=== PATIENT | female | born 1950 | race Caucasian/White ===

== ENCOUNTER → 2021-01-28 | Outpatient (REF) | payer MEDICARE, MEDICAID ==
[~2021-01-28] MED LIST: ALB2.5NEB INH; ALBU17IN INH; ASPI81CH32 PO; AVEL1TAB2 PO; BUPR150T12 PO; CLOP75TA2 PO; COZA100T2 PO; HYDR-3644 PO; LEVA0.3131 INH; LORA0.5T PO; LOSA100T PO; LOSA100T8 PO; LOSA50TA88 PO; OMEP1CAP73 PO; OMEPPOW18 PO; PRED20TA AD; PRED20TAB PO; SIMV20TA2 PO; SIMV20TA22 PO; SPIR1CAP INH; SPIRIVA INH; SYMB16INH INH; SYMB80AE INH; SYMB80INH INH; TESS100C PO; TYLE325T5 PO
[2021-01-29 09:50] LABS: PERCENT SATURATION 17.8 % (13.2-45.0)
== END ==
LOC: M LAB REF 12:08
PROVIDERS: ATTEND Internal Medicine
DX: G25.81 Restless legs syndrome (principal); D50.9 Iron deficiency anemia, unspecified

== ENCOUNTER → 2021-01-31 | Outpatient (CLI) | payer MEDICARE, MEDICAID ==
--- NOTE | 2021-01-31 11:17 | REP ---
INDICATION: COUGH. COMPARISON: PA and lateral chest dated 04/07/2014. TECHNIQUE: Upright PA and lateral chest. FINDINGS: The lung maldonado appear hyperinflated but are clear and are unchanged. Cardiac size is upper normal, unchanged. The jason, mediastinum, and skeletal structures are unchanged. There is mild thoracic scoliosis convex right, unchanged. IMPRESSION: Probable chronic hyperinflation. No acute infiltrates or effusions. No change from the prior study. <Electronically signed by Dom Landis > 01/31/21 [id number]
== END ==
LOC: M WUC 10:08
PROVIDERS: ATTEND Internal Medicine
DX: R05 Cough (principal)

== ENCOUNTER → 2021-02-21 | Outpatient (CLI) | payer MEDICARE, MEDICAID ==
[~2021-02-21] MED LIST changes: +ADV500INH; +ALBU8.5H; +FLUTISP; +INCR1INH; +ONDA-83; +ROPI1TAB3; +sertraline
== END ==
LOC: M LABSMTC 11:45
PROVIDERS: ATTEND Anesthesiology
DX: Z01.818 Encounter for other preprocedural examination (principal); Z20.822 Contact with and (suspected) exposure to COVID-19

== ENCOUNTER 2021-04-17 12:07 | Observation (INO) | payer MEDICARE ==
[~2021-04-17] VITALS: Ht 154.9 cm; Wt 63.0 kg
[~2021-04-17 12:07] MED LIST changes: -ADV500INH; +ADV500INH INH; -ALBU8.5H; +ALBU8.5H INH; -FLUTISP; +FLUTISP NARES; -INCR1INH; +INCR1INH INH; -ONDA-83; +ONDA-83 PO; -ROPI1TAB3; +ROPI1TAB3 PO
[2021-04-17] MEDS ORDERED: COMBIVENT RESPIMAT 100-20MCG INHALER 4GM INH STA (12:42)
[2021-04-17] MEDS ORDERED: methylPREDNISolone 125MG 2ML VIAL IV ONE (12:45)
[2021-04-17 13:00] LABS: BASO % 0.1 % (0.0-1.0); EOS # 0.1 10^3/uL (0.0-0.5); EOS % 0.7 % (0.0-3.0); HEMATOCRIT 32.4 % (36.0-47.0); HEMOGLOBIN 10.6 g/dl (12.0-15.5); LYMPH # 1.4 10^3/uL (1.5-5.0); LYMPH % 10.5 % (24.0-44.0); MEAN CORPUSCULAR HEMOGLOBIN 29.6 pg (27.0-33.0); MEAN CORPUSCULAR HGB CONC 32.7 g/dl (32.0-36.5); MEAN CORPUSCULAR VOLUME 90.5 fl (80.0-96.0); MONO # 0.9 10^3/uL (0.0-0.8); MONO % 6.5 % (2.0-8.0); NEUTROPHILS # 10.9 10^3/uL (1.5-8.5); NEUTROPHILS % 81.7 % (36.0-66.0); PLATELET COUNT, AUTOMATED 298 10^3/uL (150-450); RED BLOOD COUNT 3.58 10^6/uL (4.00-5.40); WHITE BLOOD COUNT 13.4 10^3/uL (4.0-10.0)
[2021-04-17] MEDS ORDERED: BUSP5TA PO (13:18)
--- NOTE | 2021-04-17 13:42 | REP ---
INDICATION: DYSPNEA/COUGH. COMPARISON: 01/31/2021. TECHNIQUE: Single portable AP view of the chest was performed. FINDINGS: The heart is at the upper limits of normal to slightly enlarged, unchanged. There is some calcification of the thoracic aorta. The mediastinal silhouette is unchanged. There are chronic bibasilar fibrotic changes. Radiographically there is no definite superimposed acute infiltrate. IMPRESSION: Stable exam. <Electronically signed by Dom Byrd > 04/17/21 [id number]
[2021-04-17 13:44] LABS: ALBUMIN 2.9 GM/DL (3.2-5.2); ALT/SGPT 22 U/L (12-78); BILIRUBIN,DIRECT 0.3 MG/DL (0.0-0.2); BILIRUBIN,TOTAL 1.1 MG/DL (0.2-1.0); BLOOD UREA NITROGEN 10 MG/DL (7-18); CALCIUM LEVEL 8.7 MG/DL (8.8-10.2); CARBON DIOXIDE LEVEL 36 MEQ/L (21-32); CHLORIDE LEVEL 95 MEQ/L (98-107); CK-MB VALUE MASS < 1.0 NG/ML (<3.6); CPK CREATINE PHOSPHOKINASE 21 U/L (26-192); CREATININE FOR GFR 0.38 MG/DL (0.55-1.30); GLOMERULAR FILTRATION RATE > 60.0 (>45); GLUCOSE, FASTING 165 MG/DL (70-100); MB/CK RELATIVE INDEX 4.76 (< OR =4); POTASSIUM SERUM 2.8 MEQ/L (3.5-5.1); SODIUM LEVEL 136 MEQ/L (136-145); TOTAL PROTEIN 7.2 GM/DL (6.4-8.2); TROPONIN I < 0.02 NG/ML (< 0.10)
[2021-04-17] MEDS ORDERED: KCL 10MEQ/100ML SWI (KRUN) 10 MEQ in IV 1 EA IV ONE (13:45)
[2021-04-17] MEDS ORDERED: POTASSIUM CHLORIDE 10 MEQ SR TABLET PO ONE (14:00)
[2021-04-17] MEDS ORDERED: MAALOX 30 ML SUSP *UDC PO PRN (14:50)
[2021-04-17] MEDS ORDERED: MOM 30ML SUSPENSION UDC PO PRN (14:50)
[2021-04-17] MEDS ORDERED: ALBUTEROL SULFATE 2.5 MG/0.5 ML INH NEB SOLN NEB PRN (14:50)
--- NOTE | 2021-04-17 15:48 | HPEPDOC ---
[facility] Medical History & Physical Date of Admission Apr 17, 2021 Date of Service: Apr 17, 2021 History and Physical CHIEF COMPLAINT: Shortness of breath HISTORY OF PRESENT ILLNESS: 70-year-old female history of COPD dependent on oxygen, hypertension, anxiety, GERD, hyperlipidemia presents with increasing shortness of breath over the past 2 days. She tells me that she's been cleaning the house overexerting herself with a lot of dust in the air which she believes is likely a trigger of her COPD and becoming short of breath. She tells me she doesn't often get exacerbations of her COPD. Her last hospitalization was in 2016. She tells me she feels better since coming to the hospital and receiving nebulizer treatment. She is using 2.5 L currently which is the same as her home requirement. She denies a fever or chills. She does endorse slightly increased sputum production. Patient was found to have hypokalemia 2.8 in the ED in conjunction with her COPD exacerbation she will be admitted for observation for management of both. PAST MEDICAL/SURGICAL HISTORY: COPD dependent on 2.5 L of oxygen at home Hyperlipidemia, hypertension and anxiety GERD History of duodenal ulcer History of pulmonary nodule follows with pulmonary Hysterectomy SOCIAL HISTORY: Denies alcohol use Denies tobacco use currently tells me she quit in 2016 Denies illicit drug use FAMILY HISTORY: Reviewed and none contributory to this admission ALLERGIES: Please see below. REVIEW OF SYSTEMS: 10 point review of systems complete all negative otherwise stated in HPI HOME MEDICATIONS: Please see below. PHYSICAL EXAMINATION: Constitutional: Awake and alert, in no apparent distress ENT: Sclera are clear. Mucosa is moist. Respiratory: diminished with poor air entry bilaterally with some mild end expiratory wheezing. No use of accessory muscles. Saturating at 93% on 2.5L o2 by NC. Cardiovascular: RRR S1 and S2 are normal, no murmur Gastrointestinal: Abdomen is soft, non distended, non tender Musculoskeletal: No lower extremity edema. Neurologic: No focal neurological deficit. Mental Status: A&O x3, normal affect Skin: No visible rashes LABORATORY DATA: See below. IMAGING: See chart MICROBIOLOGY: Please see below. ASSESSMENT 70-year-old female history of COPD dependent on oxygen, hypertension, anxiety, GERD, hyperlipidemia presents with increasing shortness of breath found to have acute on chronic COPD exacerbation and admitted for observation for medical management. Patient believes she overexerted herself over the past few days working at home cleaning the house lots of dust in the air. # Acute on chronic COPD exacerbation # Hypokalemia # Hypertension # Hyperlipidemia # Anxiety # GERD PLAN - On exam his breath sounds are diminished with poor air entry bilaterally with some mild end expiratory wheezing. - Continue supplemental oxygen by nasal cannula. Currently requiring 2.5 L by nasal cannula which is the same amount she's dependant on at home. - Duonebs scheduled and PRN - Azithromycin for 3 days - Symbicort scheduled - Prednisone 40mg for 4 more days. - Incentive spirometry. - Replace potassium repeat BMP in the morning - Continue home medications for chronic medical problems - DVT prophylaxis: Berhanex [facility] Vital Signs Vital Signs Date Time Temp Pulse Resp B/P (MAP) Pulse Ox O2 Delivery O2 Flow Rate FiO2 04/17/21 13:18 04/17/21 12:07 97.5 102 28 83 Nasal Cannula 2.0 Laboratory Data Labs 24H Laboratory Tests 2 04/17/21 12:37: Immature Granulocyte % (Auto) 0.5, Neutrophils (%) (Auto) 81.7H, Lymphocytes (%) (Auto) 10.5L, Monocytes (%) (Auto) 6.5, Eosinophils (%) (Auto) 0.7, Basophils (%) (Auto) 0.1, Neutrophils # (Auto) 10.9H, Lymphocytes # (Auto) 1.4L, Monocytes # (Auto) 0.9H, Eosinophils # (Auto) 0.1, Basophils # (Auto) 0.0, Nucleated Red Blood Cells % (auto) 0.0, Anion Gap 5L, Glomerular Filtration Rate > 60.0, Calcium Level 8.7L, Total Bilirubin 1.1H, Direct Bilirubin 0.3H, Aspartate Amino Transf (AST/SGOT) 25, Alanine Aminotransferase (ALT/SGPT) 22, Alkaline Phosphatase 147H, Total Creatine Kinase 21L, Creatine Kinase MB < 1.0, Creatine Kinase MB Relative Index 4.76H, Troponin I < 0.02, Total Protein 7.2, Albumin 2.9L, Albumin/Globulin Ratio 0.7L CBC/BMP Laboratory Tests 04/17/21 12:37 Home Medications Scheduled Buspirone HCl (Buspirone HCl) 5 Mg Tablet, 1 TAB PO BID Losartan Potassium (Losartan Potassium) 50 Mg Tab, 100 MG PO DAILY Omeprazole (Omeprazole) 20 Mg Cap, 40 MG PO DAILY Simvastatin (Simvastatin) 20 Mg Tab, 20 MG PO QPM [sertraline] 100 , BID Scheduled PRN Albuterol Sulfate (Albuterol Sulfate) 2.5 Mg/0.5 Ml Neb, 2.5 MG INH PRN PRN for SHORTNESS OF BREATH Albuterol Sulfate (Albuterol Sulfate Hfa) 8.5 Gm Hfa.aer.ad, for SHORTNESS OF BREATH Ondansetron HCl (Ondansetron HCl) 4 Mg Tablet, for NAUSEA Miscellaneous Medications Fluticasone Propionate (Fluticasone Propionate) 16 Gm [place].susp Ropinirole HCl (Ropinirole HCl) 1 Mg Tablet Salmeterol/Fluticasone (Advair 500-50 Diskus) 1 Each Blst.w.dev Umeclidinium [place] (Incruse Ellipta) 62.5 Mcg Blst.w.dev Allergies Coded Allergies: No Known Allergies (Unverified , 02/20/21) A-FIB/CHADSVASC A-FIB History Current/History of A-Fib/PAF?: No ZULEMA PERSAUD MD Apr 17, 2021 15:48
[2021-04-17] MEDS ORDERED: ZOLO100T PO (16:05)
[2021-04-17] MEDS ORDERED: LOSA100T8 PO (16:05)
[2021-04-17] MEDS ORDERED: OMEP-221 PO (16:05)
[2021-04-17] MEDS ORDERED: ROPI1TAB3 PO (16:05)
[2021-04-17] MEDS: KCL 10MEQ/100ML SWI (KRUN) 10 MEQ in IV 1 EA IV SCH ×3 (16:12→21:12)
[2021-04-17 16:28] LABS: RSV AMPLIFICATION NEGATIVE (NEGATIVE)
[2021-04-17] MEDS ORDERED: ONDANSETRON 4 MG TAB PO PRN (17:20)
[2021-04-17 17:40] VITALS: BP 123/58
[2021-04-17] MEDS ORDERED: AZITHROMYCIN INJ 500 MG, VIAL MATE ADAPTER 1 EACH in NS 250 ML IV SCH (18:00)
[2021-04-17] MEDS: hydroCHLOROthiazide 12.5 MG CAPSULE PO SCH (18:15)
[2021-04-17 18:16] VITALS: BP 123/58
[2021-04-17] MEDS: LOSARTAN 50MG TABLET PO SCH (18:16)
[2021-04-17 20:00] VITALS: BP 135/61
[2021-04-17] MEDS: SYMBICORT 160/4.5MCG INHALER 6GM INH SCH (20:00)
[2021-04-17] MEDS: IPRATROPIUM 0.5MG/ALBUTEROL 2.5MG INH SOL UD 3ML (DUONEB) NEB SCH (20:03)
[2021-04-17] MEDS: DOCUSATE SODIUM 100MG CAPSULE PO SCH (20:27)
[2021-04-17] MEDS: SERTRALINE 100 MG TAB PO SCH (20:27)
[2021-04-17] MEDS: busPIRone 5 MG TAB PO SCH (20:35)
[2021-04-17] MEDS ORDERED: SIMVASTATIN 20 MG TAB PO SCH (21:00)
[2021-04-17] MEDS ORDERED: rOPINIRole 1MG TAB PO SCH (21:00)
[2021-04-17] MEDS: ACETAMINOPHEN TAB 650MG DOSE (2X325MG) PO PRN (21:12)
--- NOTE | 2021-04-17 21:32 | ECGEPIP ---
[facility] - ED Test Date: 2021-04-17 Pat Name: NANCY GARZA Department: Room: - Gender: Female Service [employer] Driver: LEONIDAS : 1950 Requested By: ROBBIE CHAVARRIA Order Number: [id number] Reading MD: Gómez Juinor Measurements Intervals [place] Rate: 90 P: 62 AR: 182 QRS: 75 QRSD: 78 T: 76 QT: 338 QTc: 413 Interpretive Statements Normal sinus rhythm ST & T wave abnormality BASELINE ARTIFACT AFFECTS INTERPRETATION SIMILAR TO 09/02/16 Electronically Signed on 04-17-2021 21:32:45 EDT by Gómez Junior
[2021-04-18] MEDS ORDERED: BENZONATATE 100 MG CAP PO ONE (00:25)
[2021-04-18] MEDS: IPRATROPIUM 0.5MG/ALBUTEROL 2.5MG INH SOL UD 3ML (DUONEB) NEB SCH ×2 (02:54→07:13)
[2021-04-18 05:45] LABS: HEMATOCRIT 31.9 % (36.0-47.0); HEMOGLOBIN 10.2 g/dl (12.0-15.5); MEAN CORPUSCULAR HEMOGLOBIN 29.1 pg (27.0-33.0); MEAN CORPUSCULAR VOLUME 90.9 fl (80.0-96.0); PLATELET COUNT, AUTOMATED 320 10^3/uL (150-450); RED BLOOD COUNT 3.51 10^6/uL (4.00-5.40); WHITE BLOOD COUNT 10.5 10^3/uL (4.0-10.0)
[2021-04-18 06:20] LABS: BLOOD UREA NITROGEN 14 MG/DL (7-18); CALCIUM LEVEL 9.5 MG/DL (8.8-10.2); CARBON DIOXIDE LEVEL 39 MEQ/L (21-32); CHLORIDE LEVEL 100 MEQ/L (98-107); GLOMERULAR FILTRATION RATE > 60.0 (>45); GLUCOSE, FASTING 150 MG/DL (70-100); MAGNESIUM LEVEL 2.1 MG/DL (1.8-2.4); POTASSIUM SERUM 3.9 MEQ/L (3.5-5.1); SODIUM LEVEL 141 MEQ/L (136-145)
[2021-04-18] MEDS: SYMBICORT 160/4.5MCG INHALER 6GM INH SCH (07:13)
[2021-04-18 08:00] VITALS: BP 135/62
[2021-04-18] MEDS ORDERED: PANTOPRAZOLE 40MG VIAL (C9113 PER 1) IV SCH (09:00)
[2021-04-18] MEDS ORDERED: rOPINIRole 1MG TAB PO SCH (09:00)
[2021-04-18] MEDS ORDERED: predniSONE 20 MG TAB PO SCH (09:00)
[2021-04-18] MEDS ORDERED: ENOXAPARIN 40MG/0.4ML SYRINGE (J1650 PER 10MG) SC SCH (09:00)
[2021-04-18] MEDS ORDERED: PANTOPRAZOLE 40MG TAB (PROTONIX) PO SCH (09:00)
[2021-04-18] MEDS: ACETAMINOPHEN TAB 650MG DOSE (2X325MG) PO PRN (10:17)
[2021-04-18] MEDS: LOSARTAN 50MG TABLET PO SCH (10:18)
[2021-04-18] MEDS ORDERED: GUAI100L6 PO (10:18)
[2021-04-18] MEDS ORDERED: PRED20TA PO (10:18)
[2021-04-18] MEDS ORDERED: AZIT500T5 PO (10:18)
[2021-04-18] MEDS: busPIRone 5 MG TAB PO SCH (10:19)
[2021-04-18] MEDS: SERTRALINE 100 MG TAB PO SCH (10:19)
[2021-04-18] MEDS: hydroCHLOROthiazide 12.5 MG CAPSULE PO SCH (10:19)
[2021-04-18] MEDS: DOCUSATE SODIUM 100MG CAPSULE PO SCH (10:19)
--- NOTE | 2021-04-18 10:23 | IPNPDOC ---
Text Note Date of Service The patient was seen on 04/18/21. NOTE Subjective: Patient was seen and examined this morning at bedside. She tells me she's feeling a lot better she'll longer feels excessively short of breath she feels back to her baseline. She says her productive sputum has improved. No acute overnight events reported to me. Denies fevers or chills. Feels like she is rated go home today and will be following up with her PCP early next week. I discussed with her trying to not expose herself to so much dust which likely triggered her COPD. Objective: Constitutional: Awake and alert, in no apparent distress ENT: Sclera are clear. Mucosa is moist. Respiratory: Much better air entry today compared to yesterday and no wheezing. No use of accessory muscles. Saturating at 94% on 2.5-3L o2 by NC. Cardiovascular: RRR S1 and S2 are normal, no murmur Gastrointestinal: Abdomen is soft, non distended, non tender Musculoskeletal: No lower extremity edema. Neurologic: No focal neurological deficit. Mental Status: A&O x3, normal affect Skin: No visible rashes Assessment/plan: 70-year-old female history of COPD dependent on oxygen, hypertension, anxiety, GERD, hyperlipidemia presents with increasing shortness of breath found to have acute on chronic COPD exacerbation and admitted for observation for medical management. Patient believes she overexerted herself over the past few days working at home cleaning the house lots of dust in the air. # Acute on chronic COPD exacerbation # Hypokalemia # Hypertension # Hyperlipidemia # Anxiety # GERD PLAN Lungs sound much better today on discharge no wheezing better air entry. Less productive sputum. Patient will be discharged home today with 4 more days of azithromycin and 4 more days of prednisone. She will also be prescribed a mucolytic syrup to help with her cough. Her WBC has almost normalized. And her potassium has been corrected. Patient advised to avoid triggers such as dust which likely triggered her COPD. She agrees to follow up with her primary care physician early next week. [facility] Jsoué SOLORZANO, I+O Josué SOLORZANO, I+O Laboratory Tests 04/17/21 12:37 04/18/21 04:52 Vital Signs Date Time Temp Pulse Resp B/P (MAP) Pulse Ox O2 Delivery O2 Flow Rate FiO2 04/18/21 08:00 96.9 72 18 135/62 (39) 92 Nasal Cannula 3.0 I&O- Last 24 Hours up to 6 AM 04/18/21 06:00 Intake Total 100 ml Balance 100 ml ZULEMA PERSAUD MD Apr 18, 2021 10:23
== END 2021-04-18 13:20 | disposition home or self-care (01) ==
LOC: M ED 12:07 → M ED INP 12:08 → M PCU 17:30
PROVIDERS: ADMIT Family Medicine; ATTEND Family Medicine
DX: J44.1 Chronic obstructive pulmonary disease with (acute) exacerbation (principal); E87.6 Hypokalemia; R06.02 Shortness of breath; I10 Essential (primary) hypertension; E78.5 Hyperlipidemia, unspecified; F41.9 Anxiety disorder, unspecified; K21.9 Gastro-esophageal reflux disease without esophagitis; Z99.81 Dependence on supplemental oxygen; R91.1 Solitary pulmonary nodule; Z87.891 Personal history of nicotine dependence; Z79.899 Other long term (current) drug therapy
CPT/HCPCS: 36415; 71045; 80048; 80076; 82550; 82553; 83735; 84484; 85025; 85027; 87631; 93005; 93041; 94640; 94760; 96365; 96372; 96375; 96376; 99285; C9113; G0378; J0456; J1650; J2930; J7512

== ENCOUNTER 2021-04-29 14:35 | Inpatient (IN) | payer MEDICARE ==
[~2021-04-29] VITALS: Ht 154.9 cm; Wt 63.2 kg
[~2021-04-29 14:35] MED LIST changes: +AZIT500T5 PO; +BUSP5TA PO; +GUAI100L6 PO; +OMEP-221 PO; +PRED20TA PO; +ZOLO100T PO
[2021-04-29 15:28] LABS: BASO % 0.2 % (0.0-1.0); EOS # 0.2 10^3/uL (0.0-0.5); EOS % 1.3 % (0.0-3.0); HEMATOCRIT 36.6 % (36.0-47.0); HEMOGLOBIN 11.5 g/dl (12.0-15.5); LYMPH # 2.7 10^3/uL (1.5-5.0); LYMPH % 15.9 % (24.0-44.0); MEAN CORPUSCULAR HEMOGLOBIN 29.6 pg (27.0-33.0); MEAN CORPUSCULAR HGB CONC 31.4 g/dl (32.0-36.5); MEAN CORPUSCULAR VOLUME 94.3 fl (80.0-96.0); MONO # 1.1 10^3/uL (0.0-0.8); MONO % 6.4 % (2.0-8.0); NEUTROPHILS % 75.6 % (36.0-66.0); PLATELET COUNT, AUTOMATED 375 10^3/uL (150-450); RED BLOOD COUNT 3.88 10^6/uL (4.00-5.40); WHITE BLOOD COUNT 17.2 10^3/uL (4.0-10.0)
[2021-04-29] MEDS: COMBIVENT RESPIMAT 100-20MCG INHALER 4GM INH SCH ×3 (15:32→16:27)
[2021-04-29 15:34] LABS: VENOUS BASE EXCESS 5.9 (-2.0-2.0); VENOUS HCO3 32.5 MEQ/L (23.0-27.0); VENOUS O2 SATURATION 98.2 % (60.0-80.0); VENOUS PARTIAL PRESSURE CO2 64.9 mmHg (38.0-50.0); VENOUS PH 7.318 UNITS (7.330-7.430); VENOUS STANDARD HCO3 29.8 MEQ/L; VENOUS TOTAL CO2 34.5 MEQ/L (24.0-28.0)
--- NOTE | 2021-04-29 15:44 | REP ---
INDICATION: DYSPNEA/COUGH. COMPARISON: Comparison chest x-ray April 17, 2021. TECHNIQUE: Portable upright AP chest radiograph. FINDINGS: EKG monitoring electrodes are seen. The lungs are symmetrically aerated. There is left perihilar and left base linear fibrosis unchanged. No new infiltrate is seen. Heart size is borderline unchanged. The thoracic aorta is calcific. There is no evidence of pleural effusion.. IMPRESSION: Left perihilar and left base linear fibrosis. Borderline heart size. Otherwise no acute disease.. <Electronically signed by Guille Lynne > 04/29/21 [id number]
[2021-04-29 16:16] LABS: ALBUMIN 3.3 GM/DL (3.2-5.2); ALT/SGPT 14 U/L (12-78); BILIRUBIN,DIRECT < 0.1 MG/DL (0.0-0.2); BILIRUBIN,TOTAL 0.4 MG/DL (0.2-1.0); BLOOD UREA NITROGEN 14 MG/DL (7-18); CALCIUM LEVEL 9.1 MG/DL (8.8-10.2); CARBON DIOXIDE LEVEL 29 MEQ/L (21-32); CHLORIDE LEVEL 103 MEQ/L (98-107); CK-MB VALUE MASS < 1.0 NG/ML (<3.6); CPK CREATINE PHOSPHOKINASE 25 U/L (26-192); CREATININE FOR GFR 0.51 MG/DL (0.55-1.30); GLOMERULAR FILTRATION RATE > 60.0 (>45); GLUCOSE, FASTING 127 MG/DL (70-100); NT-PRO BNP 232 PG/ML (<125); POTASSIUM SERUM 4.5 MEQ/L (3.5-5.1); SODIUM LEVEL 137 MEQ/L (136-145); THYROID STIMULATING HORMONE 0.536 uIU/ML (0.358-3.740); THYROXINE (T4) 10.5 UG/DL (4.5-12.0); TOTAL PROTEIN 7.2 GM/DL (6.4-8.2); TROPONIN I < 0.02 NG/ML (< 0.10)
[2021-04-29] MEDS ORDERED: ISOVUE-370 76% 100ML VIAL As Ordered ONE (16:56)
--- NOTE | 2021-04-29 18:13 | REPVR ---
PROCEDURE INFORMATION: Exam: CTA Chest With Contrast Exam date and time: 04/29/2021 5:03 PM Age: 70 years old Clinical indication: Shortness of breath TECHNIQUE: Imaging protocol: Computed tomographic angiography of the chest with contrast. 3D rendering (Not supervised by radiologist): MIP and/or 3D reconstructed images were created by the technologist. Radiation optimization: All CT scans at this facility use at least one of these dose optimization techniques: automated exposure control; mA and/or kV adjustment per patient size (includes targeted exams where dose is matched to clinical indication); or iterative reconstruction. Contrast material: ISOVUE 370; Contrast volume: 75 ml; Contrast route: INTRAVENOUS (IV); COMPARISON: CT ANGIO CHEST 08/25/2014 12:06 AM FINDINGS: Pulmonary arteries: Normal. No pulmonary emboli. Aorta: Unremarkable. No aortic aneurysm. No aortic dissection. Lungs: Emphysematous changes. A large bullous lesion at the left lung base measuring 7 x 8 cm. There is scattered foci of consolidation in bilateral lungs. Pleural spaces: Unremarkable. No pneumothorax. No pleural effusion. Heart: Unremarkable. No cardiomegaly. No pericardial effusion. Lymph nodes: Unremarkable. No enlarged lymph nodes. Bones/joints: Degenerative changes of the spine. Soft tissues: Unremarkable. IMPRESSION: 1. No pulmonary embolism. 2. Emphysematous changes. 3. Large bullous lesion at the left lung base measuring 7 x 8 cm. 4. Scattered foci of consolidation in bilateral lungs etiology infection/inflammation. Follow-up is suggested. Electronically signed by: Diego Rodríguez On 04/29/2021 18:13:05 PM
[2021-04-29] MEDS ORDERED: POTA10CA32 PO (18:24)
[2021-04-29] MEDS ORDERED: BUSP1TAB PO (18:24)
[2021-04-29] MEDS ORDERED: IPRATROPIUM 0.5MG/ALBUTEROL 2.5MG INH SOL UD 3ML (DUONEB) NEB PRN (18:30)
[2021-04-29] MEDS ORDERED: FLUTICASONE PROP 0.05% NASAL SPRAY 16 GM (FLONASE) NARES PRN (18:30)
[2021-04-29] MEDS ORDERED: PILL CUTTER 1 EACH XX PRN (18:45)
--- NOTE | 2021-04-29 18:56 | HPEPDOC ---
General Date of Admission Apr 29, 2021 at 18:24 Date of Service: Apr 29, 2021 Chief Complaint The patient is a 70-year-old female admitted with a reason for visit of Acute Respiratory Disease, Copd Exacerbation. Source: Patient History of Present Illness Mrs. Lorenzo is a 70-year-old female with chronic hypoxic respiratory failure on 2.5 L who presents with acute worsening of dyspnea. Patient has history of COPD exacerbations in the past. This year, she has done well. So far only 2 exacerbations including this admission. Her last exacerbation was April 17, 2021. After discharge, she was doing well at home. Yesterday, she felt short of breath which improved with rescue inhaler. She had to use the rescue inhaler again that evening. This morning, her shortness of breath persisted and continued to worsen throughout the day. She got to the point where she could n ot breathe and asked her sister to call EMS. Patient was given Decadron and DuoNeb's on the way to the ER. When I saw her in the ED, she was pursed lip breathing and in a tripod position. She required 4 L of oxygen. This time, she does not know what triggered her exacerbation. Patient will be admitted for COPD exacerbation. Home Medications Scheduled Buspirone HCl (Buspirone HCl) 7.5 Mg Tablet, 7.5 MG PO BID, (Reported) Omeprazole (Omeprazole) 40 Mg Capsule.dr, 40 MG PO DAILY, (Reported) Potassium Chloride (Potassium Chloride) 10 Meq Capsule.er, 10 MEQ PO DAILY, (Reported) Ropinirole HCl (Ropinirole HCl) 1 Mg Tablet, 1 MG PO QAM, (Reported) Ropinirole HCl (Ropinirole HCl) 1 Mg Tablet, 2 MG PO QHS, (Reported) Salmeterol/Fluticasone (Advair 500-50 Diskus) 1 Each Blst.w.dev, 1 PUFF INH BID, (Reported) Sertraline Hcl (Zoloft) 100 Mg Tablet, 100 MG PO BID, (Reported) Simvastatin (Simvastatin) 20 Mg Tab, 20 MG PO QHS, (Reported) Umeclidinium [place] (Incruse Ellipta) 62.5 Mcg Blst.w.dev, 1 PUFF INH DAILY, (Reported) TAKES IN THE AFTERNOON Scheduled PRN Albuterol Sulfate (Albuterol Sulfate) 2.5 Mg/0.5 Ml Neb, 2.5 MG INH Q6H PRN for SHORTNESS OF BREATH, (Reported) Albuterol Sulfate (Albuterol Sulfate Hfa) 8.5 Gm Hfa.aer.ad, 2 PUFFS INH QID PRN for SHORTNESS OF BREATH, (Reported) Fluticasone Propionate (Fluticasone Propionate) 16 Gm [place].susp, 1 SPRAY NARES BID PRN for CONGESTION, (Reported) Allergies Coded Allergies: No Known Allergies (Unverified , 02/20/21) Past Medical History Medical History 1. Emphysematous COPD 2. Chronic hypoxic respiratory failure on 2.5 L nasal cannula at baseline 3. Hyperlipidemia 4. Hypertension 5. Anxiety 6. GERD 7. History of duodenal ulcer 8. History of pulmonary nodule Surgical History 1. 2. Hysterectomy Family History Father: History of muscular dystrophy Mother: History of emphysematous COPD Social History * Smoker: former Smoker (Quit 13 years ago, smoked for 40 years) Alcohol: Denies Drugs: denies A-FIB/CHADSVASC A-FIB History Current/History of A-Fib/PAF?: No Review of Systems Constitutional: Denies: Chills, Fever Eyes: Denies: Vision change ENT: Denies: Sore Throat Skin: Denies: Rash Pulmonary: Reports: Dyspnea; Denies: Cough Cardiovascular: Denies: Chest Pain Gastrointestinal: Reports: Diarrhea (Soft, not watery); Denies: Abdominal Pain Genitourinary: Denies: Dysuria Hematologic: Denies: Bruising Neurological: Denies: Numbness Psych: Reports: Anxiety, Depression Physical Examination General Exam: Positive: Alert, Cooperative, Mild Distress, Other Eye Exam: Positive: EOMI; Negative: Sclera icteric ENT Exam: Negative: Atraumatic Neck Exam: Positive: Supple Chest Exam: Positive: Diminished, Other (Pursed lip breathing and sitting in a tripod position); Negative: Wheezing Heart Exam: Positive: Tachycardic, Regular Rhythm Abdomen Exam: Positive: Normal bowel sounds, Soft; Negative: Tenderness Extremity Exam: Negative: Edema Neuro Exam: Positive: Normal Speech, Cranial Nerves 3-12 NL Psych Exam: Positive: Anxiety Vital Signs Vital Signs Date Time Temp Pulse Resp B/P (MAP) Pulse Ox O2 Delivery O2 Flow Rate FiO2 04/29/21 18:00 100 20 154/70 (98) 95 Nasal Cannula 04/29/21 16:45 4.0 04/29/21 15:38 97.4 Laboratory Data Labs 24H Laboratory Tests 2 04/29/21 15:04: Blood Gas Bicarbonate Standard 29.8, Venous Blood pH 7.318L, Venous Blood Partial Pressure CO2 64.9H, Venous Blood Partial Pressure O2 123.0H, Venous Blood Total Carbon Dioxide 34.5H, Venous Blood HCO3 32.5H, Venous Blood Oxygen Saturation 98.2H, Venous Blood Base Excess 5.9H, Anion Gap 5L, Glomerular Filtration Rate > 60.0, Lactic Acid Level 0.7, Calcium Level 9.1, Total Bilirubin 0.4, Direct Bilirubin < 0.1, Aspartate Amino Transf (AST/SGOT) 18, Alanine Aminotransferase (ALT/SGPT) 14, Alkaline Phosphatase 113, Total Creatine Kinase 25L, Creatine Kinase MB < 1.0, Creatine Kinase MB Relative Index 4.00, Troponin I < 0.02, YB-Pub-F-Type Natriuretic Peptide 232H, Total Protein 7.2, Albumin 3.3, Albumin/Globulin Ratio 0.8L, Thyroid Stimulating Hormone (TSH) 0.536, Thyroxine (T4) 10.5 04/29/21 15:09: Immature Granulocyte % (Auto) 0.6, Neutrophils (%) (Auto) 75.6H, Lymphocytes (%) (Auto) 15.9L, Monocytes (%) (Auto) 6.4, Eosinophils (%) (Auto) 1.3, Basophils (%) (Auto) 0.2, Neutrophils # (Auto) 13.0H, Lymphocytes # (Auto) 2.7, Monocytes # (Auto) 1.1H, Eosinophils # (Auto) 0.2, Basophils # (Auto) 0.0, Nucleated Red Blood Cells % (auto) 0.0 CBC/BMP Laboratory Tests 04/29/21 15:04 04/29/21 15:09 Microbiology Microbiology 04/29/21 Respiratory Virus Panel (PCR) ([facility]) - Final, Complete 04/29/21 Blood Culture, Received Pending Assessment/Plan Mrs. Lorenzo is a 70-year-old female with chronic hypoxic respiratory failure on 2.5 L who presents with acute worsening of dyspnea. We will treat patient's COPD exacerbation with IV steroids, IV antibiotics, and DuoNeb scheduled and [id number]. We will continue her Advair. CT angio chest was negative for PE, but does demonstrate emphysematous changes, large left lung base bullous, and scattered foci of consolidation, possibly infectious versus inflammatory. Plan / VTE VTE Prophylaxis Ordered?: Yes Plan Plan 1. COPD exacerbation Unknown trigger, second exacerbation of the year IV Solu-Medrol, IV azithromycin, and IV ceftriaxone. Will check a procalcitonin Advair continued DuoNeb scheduled and as needed Pending clinical improvement 2. Acute hypoxic hypercapnic respiratory failure Patient required 4 L of oxygen which is above baseline. Chronically on 2.5 L Patient was pursed lip breathing and tripoding VBG pH 7.3 and VBG PCO2 64.9 Treating with IV steroids, IV antibiotics, and inhalers 3. Hyperlipidemia Continue simvastatin 4. Anxiety and depression Continue sertraline and buspirone 5. GERD Continue omeprazole 6. DVT prophylaxis Lovenox Disposition: Pending clinical improvement and improvement in oxygen requirements STEPHANE BLACKWELL DO Apr 29, 2021 18:56
[2021-04-29] MEDS: ADVAIR HFA 230/21MCG INHALER INH SCH (20:00)
[2021-04-29] MEDS ORDERED: cefTRIAXone SOD 1 GM in D5W MINI-BAG PLUS 50 ML IV SCH (20:00)
[2021-04-29] MEDS: IPRATROPIUM 0.5MG/ALBUTEROL 2.5MG INH SOL UD 3ML (DUONEB) NEB SCH ×2 (20:11→23:17)
[2021-04-29 21:00] VITALS: BP 140/64
[2021-04-29] MEDS ORDERED: SIMVASTATIN 20 MG TAB PO SCH (21:00)
[2021-04-29] MEDS ORDERED: rOPINIRole 1MG TAB PO SCH (21:00)
[2021-04-29] MEDS ORDERED: AZITHROMYCIN INJ 500 MG, VIAL MATE ADAPTER 1 EACH in NS 250 ML IV SCH (21:00)
[2021-04-29] MEDS: busPIRone 5 MG TAB PO SCH (21:21)
[2021-04-29] MEDS: SERTRALINE 100 MG TAB PO SCH (21:21)
[2021-04-29] MEDS: methylPREDNISolone 40MG 1ML VIAL IV SCH (21:23)
[2021-04-30] VITALS: BP 128/61
[2021-04-30] MEDS: IPRATROPIUM 0.5MG/ALBUTEROL 2.5MG INH SOL UD 3ML (DUONEB) NEB SCH ×3 (03:07→11:35)
[2021-04-30] MEDS ORDERED: ACETAMINOPHEN TAB 650MG DOSE (2X325MG) PO PRN (03:20)
[2021-04-30] MEDS: methylPREDNISolone 40MG 1ML VIAL IV SCH ×2 (03:27→11:10)
[2021-04-30 04:00] VITALS: BP 132/64
[2021-04-30 06:00] LABS: HEMATOCRIT 35.9 % (36.0-47.0); HEMOGLOBIN 11.3 g/dl (12.0-15.5); MEAN CORPUSCULAR HGB CONC 31.5 g/dl (32.0-36.5); MEAN CORPUSCULAR VOLUME 92.1 fl (80.0-96.0); PLATELET COUNT, AUTOMATED 358 10^3/uL (150-450); WHITE BLOOD COUNT 9.2 10^3/uL (4.0-10.0)
[2021-04-30 06:25] LABS: BLOOD UREA NITROGEN 15 MG/DL (7-18); CALCIUM LEVEL 9.4 MG/DL (8.8-10.2); CARBON DIOXIDE LEVEL 32 MEQ/L (21-32); CHLORIDE LEVEL 102 MEQ/L (98-107); CREATININE FOR GFR 0.46 MG/DL (0.55-1.30); GLOMERULAR FILTRATION RATE > 60.0 (>45); GLUCOSE, FASTING 149 MG/DL (70-100); POTASSIUM SERUM 4.4 MEQ/L (3.5-5.1); SODIUM LEVEL 140 MEQ/L (136-145)
[2021-04-30] MEDS: ADVAIR HFA 230/21MCG INHALER INH SCH (07:35)
[2021-04-30 08:10] VITALS: BP 134/60
[2021-04-30] MEDS: SERTRALINE 100 MG TAB PO SCH (08:43)
[2021-04-30] MEDS: busPIRone 5 MG TAB PO SCH (08:44)
[2021-04-30] MEDS ORDERED: AZIT500T5 PO (09:00)
[2021-04-30] MEDS ORDERED: OMEPRAZOLE 20 MG CAP PO SCH (09:00)
[2021-04-30] MEDS ORDERED: rOPINIRole 1MG TAB PO SCH (09:00)
[2021-04-30] MEDS ORDERED: CEFD1CAP8 PO (09:00)
[2021-04-30] MEDS ORDERED: PRED10TA2 PO (09:00)
[2021-04-30] MEDS ORDERED: POTASSIUM CHLORIDE 10 MEQ SR TABLET PO SCH (09:00)
[2021-04-30] MEDS ORDERED: ENOXAPARIN 40MG/0.4ML SYRINGE (J1650 PER 10MG) SC SCH (09:00)
--- NOTE | 2021-04-30 11:04 | ECGEPIP ---
[facility] - ED Test Date: 2021-04-29 Pat Name: NANCY GARZA Department: Room: - Gender: Female [employer] Recruiter: THOMAS : 1950 Requested By: ROBBIE Thompson Order Number: [id number] Reading MD: Evette Torres Measurements Intervals [place] Rate: 96 P: 70 [place]: 166 QRS: 78 QRSD: 72 T: 76 QT: 346 QTc: 437 Interpretive Statements Sinus rhythm with premature supraventricular complexes Nonspecific ST and T wave abnormality similar 04/17/21 Electronically Signed on 04-30-2021 11:04:03 EDT by Evette Torres
--- NOTE | 2021-04-30 22:45 | DS.PDOC ---
Discharge Summary General Date of Admission Apr 29, 2021 at 18:24 Date of Discharge Apr 30, 2021 Discharge Summary PROCEDURES PERFORMED DURING STAY: None ADMITTING DIAGNOSES: 1. COPD exacerbation 2. Acute hypoxic hypercapnic respiratory failure 3. Hyperlipidemia 4. Anxiety/depression 5. GERD DISCHARGE DIAGNOSES: 1. COPD exacerbation 2. Acute hypoxic hypercapnic respiratory failure 3. Hyperlipidemia 4. Anxiety/depression 5. GERD COMPLICATIONS/CHIEF COMPLAINT: Acute Respiratory Disease, Copd Exacerbation. HISTORY OF PRESENT ILLNESS: Mrs. Lorenzo is a 70-year-old female with chronic hypoxic respiratory failure on 2.5 L who presents with acute worsening of dyspnea. Patient has history of COPD exacerbations in the past. This year, she has done well. So far only 2 exacerbations including this admission. Her last exacerbation was April 17, 2021. After discharge, she was doing well at home. Yesterday, she felt short of breath which improved with rescue inhaler. She had to use the rescue inhaler again that evening. This morning, her shortness of breath persisted and continued to worsen throughout the day. She got to the point where she could not breathe and asked her sister to call EMS. Patient was given Decadron and DuoNeb's on the way to the ER. When I saw her in the ED, she was pursed lip breathing and in a tripod position. She required 4 L of oxygen. This time, she does not know what triggered her exacerbation. Patient will be admitted for COPD exacerbation. HOSPITAL COURSE: Patient did well overnight and was able to wean down her oxygen. She improved unexpectedly quickly. This morning, she felt close to baseline and her breathing greatly improved. She felt ready for home and was subsequently discharged home. DISCHARGE MEDICATIONS: Please see below. ALLERGIES: Please see below. PHYSICAL EXAMINATION ON DISCHARGE: VITAL SIGNS: Please see below. GENERAL: Comfortable, in no apparent distress. HEENT: Head normocephalic/atraumatic, EOMI, sclera clear. NECK: Supple. RESPIRATORY: Diminished but clear. No wheezing noted. CARDIOVASCULAR: Regular rate and rhythm. ABDOMEN: Soft, nontender, no guarding or rebound tenderness. Normal bowel sounds. MUSCLE SKELETAL: Muscle strength 5/5 in all extremities. NEUROLOGICAL: CN 312 grossly intact, no focal deficits noted. PSYCHOLOGICAL: Normal mood and affect LABORATORY DATA: Please see below. IMAGING: Radiologist interpretation CT angio chest IMPRESSION: 1. No pulmonary embolism. 2. Emphysematous changes. 3. Large bullous lesion at the left lung base measuring 7 x 8 cm. 4. Scattered foci of consolidation in bilateral lungs etiology infection/inflammation. Follow-up is suggested. PROGNOSIS: Good ACTIVITY: As tolerated. DIET: As tolerated DISCHARGE PLAN: Home DISPOSITION: 01 Home, Self-Care. DISCHARGE INSTRUCTIONS: 1. Follow up with your PCP within 1 week 2. Continue steroid taper and antibiotics to completion DISCHARGE CONDITION: Stable. Total time spent on discharge planning, discharge summary, and medication reconciliation: 45 minutes. Vital Signs/I&Os Vital Signs Date Time Temp Pulse Resp B/P (MAP) Pulse Ox O2 Delivery O2 Flow Rate FiO2 04/30/21 08:10 97.5 84 18 134/60 (84) 96 Nasal Cannula 3.0 I&O- Last 24 Hours up to 6 AM 04/30/21 06:00 Intake Total 350 ml Output Total 850 ml Balance -500 ml Laboratory Data Labs 24H Laboratory Tests 2 04/30/21 05:08: Nucleated Red Blood Cells % (auto) 0.0, Anion Gap 6L, Glomerular Filtration Rate > 60.0, Calcium Level 9.4, Procalcitonin <0.05 CBC/BMP Laboratory Tests 04/30/21 05:08 Microbiology Microbiology 04/29/21 Blood Culture - Preliminary, Resulted No growth after 24 hours . All specim... 04/29/21 Respiratory Virus Panel (PCR) ([facility]) - Final, Complete 04/29/21 Blood Culture - Preliminary, Resulted No growth after 24 hours . All specim... Discharge Medications Scheduled Azithromycin (Azithromycin) 500 Mg Tablet, 500 MG PO DAILY Buspirone HCl (Buspirone HCl) 7.5 Mg Tablet, 7.5 MG PO BID, (Reported) Cefdinir (Cefdinir) 300 Mg Capsule, 300 MG PO BID Omeprazole (Omeprazole) 40 Mg Capsule.dr, 40 MG PO DAILY, (Reported) Potassium Chloride (Potassium Chloride) 10 Meq Capsule.er, 10 MEQ PO DAILY, (Reported) Prednisone (Prednisone) 10 Mg Tablet, 10 MG PO TAPER Take 4 tabs daily x 3 days, then 3 tabs daily x 3 days, then 2 tabs daily x 3 days, then 1 tab daily x 3 days and stop Ropinirole HCl (Ropinirole HCl) 1 Mg Tablet, 1 MG PO QAM, (Reported) Ropinirole HCl (Ropinirole HCl) 1 Mg Tablet, 2 MG PO QHS, (Reported) Salmeterol/Fluticasone (Advair 500-50 Diskus) 1 Each Blst.w.dev, 1 PUFF INH BID, (Reported) Sertraline Hcl (Zoloft) 100 Mg Tablet, 100 MG PO BID, (Reported) Simvastatin (Simvastatin) 20 Mg Tab, 20 MG PO QHS, (Reported) Umeclidinium [place] (Incruse Ellipta) 62.5 Mcg Blst.w.dev, 1 PUFF INH DAILY, (Reported) TAKES IN THE AFTERNOON Scheduled PRN Albuterol Sulfate (Albuterol Sulfate) 2.5 Mg/0.5 Ml Neb, 2.5 MG INH Q6H PRN for SHORTNESS OF BREATH, (Reported) Albuterol Sulfate (Albuterol Sulfate Hfa) 8.5 Gm Hfa.aer.ad, 2 PUFFS INH QID PRN for SHORTNESS OF BREATH, (Reported) Fluticasone Propionate (Fluticasone Propionate) 16 Gm [place].susp, 1 SPRAY NARES BID PRN for CONGESTION, (Reported) Allergies Coded Allergies: No Known Allergies (Unverified , 02/20/21) STEPHANE BLACKWELL DO Apr 30, 2021 22:45
== END 2021-04-30 11:50 | disposition home or self-care (01) | DRG 190 ==
LOC: M ED 14:35 → EDBD 14:35 → M ED INP 18:24 → ENRESERV 19:39 → M PCU 20:58
PROVIDERS: ADMIT Internal Medicine; ATTEND Internal Medicine
DX: J44.1 Chronic obstructive pulmonary disease with (acute) exacerbation (principal); J96.21 Acute and chronic respiratory failure with hypoxia; J96.02 Acute respiratory failure with hypercapnia; E78.5 Hyperlipidemia, unspecified; F41.9 Anxiety disorder, unspecified; I10 Essential (primary) hypertension; F32.9 Major depressive disorder, single episode, unspecified; K21.9 Gastro-esophageal reflux disease without esophagitis; Z99.81 Dependence on supplemental oxygen; Z79.899 Other long term (current) drug therapy; Z87.891 Personal history of nicotine dependence

== ENCOUNTER 2021-05-01 11:03 | Emergency (ER) | payer MEDICARE ==
[~2021-05-01 11:03] MED LIST changes: +BUSP1TAB PO; +CEFD1CAP8 PO; +POTA10CA32 PO; +PRED10TA2 PO
[2021-05-01 11:29] LABS: BASO % 0.1 % (0.0-1.0); HEMATOCRIT 37.1 % (36.0-47.0); HEMOGLOBIN 11.6 g/dl (12.0-15.5); LYMPH # 1.3 10^3/uL (1.5-5.0); LYMPH % 8.5 % (24.0-44.0); MEAN CORPUSCULAR HEMOGLOBIN 29.1 pg (27.0-33.0); MEAN CORPUSCULAR HGB CONC 31.3 g/dl (32.0-36.5); MONO # 0.5 10^3/uL (0.0-0.8); MONO % 3.3 % (2.0-8.0); NEUTROPHILS # 12.8 10^3/uL (1.5-8.5); NEUTROPHILS % 87.4 % (36.0-66.0); PLATELET COUNT, AUTOMATED 410 10^3/uL (150-450); RED BLOOD COUNT 3.99 10^6/uL (4.00-5.40); WHITE BLOOD COUNT 14.7 10^3/uL (4.0-10.0)
--- NOTE | 2021-05-01 12:09 | REP ---
INDICATION: DYSPNEA/COUGH COMPARISON: 04/29/2021 TECHNIQUE: Portable AP view of the chest FINDINGS: The mediastinum and cardiac silhouette are stable and within normal limits for portable technique. The lung maldonado demonstrate stable chronic changes without acute consolidation, effusion, or pneumothorax. Skeletal structures are intact. IMPRESSION: Chronic stable changes. No acute cardiopulmonary process appreciated. <Electronically signed by Vik Ellsworth > 05/01/21 [id number]
[2021-05-01 12:11] LABS: ALBUMIN 3.5 GM/DL (3.2-5.2); ALT/SGPT 17 U/L (12-78); BILIRUBIN,DIRECT < 0.1 MG/DL (0.0-0.2); BILIRUBIN,TOTAL 0.3 MG/DL (0.2-1.0); BLOOD UREA NITROGEN 28 MG/DL (7-18); CALCIUM LEVEL 8.9 MG/DL (8.8-10.2); CARBON DIOXIDE LEVEL 34 MEQ/L (21-32); CHLORIDE LEVEL 102 MEQ/L (98-107); CPK CREATINE PHOSPHOKINASE 26 U/L (26-192); CREATININE FOR GFR 0.55 MG/DL (0.55-1.30); GLOMERULAR FILTRATION RATE > 60.0 (>45); GLUCOSE, FASTING 177 MG/DL (70-100); MB/CK RELATIVE INDEX 3.85 (< OR =4); NT-PRO BNP 714 PG/ML (<125); POTASSIUM SERUM 4.6 MEQ/L (3.5-5.1); SODIUM LEVEL 137 MEQ/L (136-145); TOTAL PROTEIN 7.4 GM/DL (6.4-8.2); TROPONIN I < 0.02 NG/ML (< 0.10)
[2021-05-01 14:15] VITALS: BP 143/69
--- NOTE | 2021-05-01 18:03 | ECGEPIP ---
[facility] - ED Test Date: 2021-05-01 Pat Name: NANCY GARZA Department: Room: - Gender: Female Client Service Coordinator: : 1950 Requested By: Gómez Wilde Order Number: [id number] Reading MD: Evette Torres Measurements Intervals [place] Rate: 110 P: 70 OR: 168 QRS: 76 QRSD: 74 T: 69 QT: 312 QTc: 422 Interpretive Statements Sinus tachycardia Right atrial enlargement Nonspecific ST abnormality baseline artifact may affect interpretation increased rate 04/29/21 Electronically Signed on 05-01-2021 18:02:58 EDT by Evette Torres
[2021-05-02] MEDS ORDERED: CEFD300CAP PO (13:56)
[2021-05-02] MEDS ORDERED: PRED10TA2 PO (13:56)
== END 2021-05-01 14:50 | disposition home or self-care (01) ==
LOC: M ED 11:03 → EDBD 11:03 → M ED 14:50
DX: F41.0 Panic disorder [episodic paroxysmal anxiety] (principal); J96.11 Chronic respiratory failure with hypoxia; R94.31 Abnormal electrocardiogram [ECG] [EKG]; I10 Essential (primary) hypertension; J44.9 Chronic obstructive pulmonary disease, unspecified; Z87.891 Personal history of nicotine dependence

== ENCOUNTER 2021-05-02 11:18 | Inpatient (IN) | payer MEDICARE ==
[~2021-05-02] VITALS: Ht 154.9 cm; Wt 61.7 kg
[2021-05-02] MEDS ORDERED: FUROSEMIDE 40MG/4ML VIAL (J1940) IV ONE (11:30)
[2021-05-02 11:39] LABS: HEMATOCRIT 40.5 % (36.0-47.0); HEMOGLOBIN 12.3 g/dl (12.0-15.5); MEAN CORPUSCULAR HEMOGLOBIN 29.4 pg (27.0-33.0); MEAN CORPUSCULAR HGB CONC 30.4 g/dl (32.0-36.5); MEAN CORPUSCULAR VOLUME 96.9 fl (80.0-96.0); PLATELET COUNT, AUTOMATED 529 10^3/uL (150-450); RED BLOOD COUNT 4.18 10^6/uL (4.00-5.40)
--- NOTE | 2021-05-02 11:39 | REP ---
INDICATION: SOB COMPARISON: 04/29/2021 TECHNIQUE: Portable AP view of the chest FINDINGS: Examination is limited by positioning. Mediastinum and cardiac silhouette are relatively stable and mild cardiomegaly cannot be excluded. The lung maldonado demonstrate diffuse chronic interstitial changes similar to prior examination. No obvious focal consolidation, effusion, or pneumothorax. Skeletal structures are intact. IMPRESSION: Chronic stable changes. No obvious acute consolidation or effusion. <Electronically signed by Vik Ellsworth > 05/02/21 [id number]
[2021-05-02 11:46] LABS: WHITE BLOOD COUNT 28.1 10^3/uL (4.0-10.0)
[2021-05-02 12:15] LABS: ALBUMIN 3.6 GM/DL (3.2-5.2); ALT/SGPT 20 U/L (12-78); BILIRUBIN,DIRECT 0.1 MG/DL (0.0-0.2); BILIRUBIN,TOTAL 0.3 MG/DL (0.2-1.0); BLOOD UREA NITROGEN 26 MG/DL (7-18); CALCIUM LEVEL 9.6 MG/DL (8.8-10.2); CARBON DIOXIDE LEVEL 34 MEQ/L (21-32); CHLORIDE LEVEL 99 MEQ/L (98-107); CK-MB VALUE MASS 1.8 NG/ML (<3.6); CPK CREATINE PHOSPHOKINASE 46 U/L (26-192); CREATININE FOR GFR 0.71 MG/DL (0.55-1.30); GLOMERULAR FILTRATION RATE > 60.0 (>45); GLUCOSE, FASTING 270 MG/DL (70-100); MB/CK RELATIVE INDEX 3.91 (< OR =4); NT-PRO BNP 2429 PG/ML (<125); POTASSIUM SERUM 4.9 MEQ/L (3.5-5.1); SODIUM LEVEL 140 MEQ/L (136-145); TOTAL PROTEIN 7.7 GM/DL (6.4-8.2); TROPONIN I 0.08 NG/ML (< 0.10)
[2021-05-02 12:18] LABS: ATYPICAL LYMPH 4 % (0-5); LYMPHOCYTES 24 % (16-44); METAMYELOCYTES 1 % (0-0); MONOCYTES 13 % (0-5); MYELOCYTES 1 % (0-0); NEUTROPHILS 55 % (28-66)
[2021-05-02 12:19] LABS: ANISOCYTOSIS 1+; PLATELET CLUMPS SMALL AMT; PLATELET ESTIMATE INCREASED (NORMAL)
[2021-05-02 12:22] LABS: ABG BASE EXCESS -0.6 (-2.0-2.0); ABG HCO3 29.1 MEQ/L (22.0-26.0); ABG O2 SATURATION 94.1 % (95.0-99.0); ABG PARTIAL PRESSURE O2 82.8 mmHg (75.0-100.0); ABG TOTAL CO2 31.4 MEQ/L (23.0-31.0)
[2021-05-02 12:26] LABS: ABG PARTIAL PRESSURE CO2 74.9 mmHg (35.0-45.0); ABG pH (ARTERIAL) 7.208 UNITS (7.350-7.450)
[2021-05-02] MEDS ORDERED: CEFD300CAP PO (13:56)
[2021-05-02] MEDS ORDERED: PRED10TA2 PO (13:56)
[2021-05-02] MEDS ORDERED: MAALOX 30 ML SUSP *UDC PO PRN (14:20)
[2021-05-02] MEDS ORDERED: MOM 30ML SUSPENSION UDC PO PRN (14:20)
[2021-05-02] MEDS ORDERED: FLUTICASONE PROP 0.05% NASAL SPRAY 16 GM (FLONASE) NARES PRN (14:20)
[2021-05-02] MEDS ORDERED: ALPRAZolam 0.25 MG TAB PO ONE (15:00)
[2021-05-02] MEDS ORDERED: IPRATROPIUM 0.5MG/ALBUTEROL 2.5MG INH SOL UD 3ML (DUONEB) NEB ONE (15:00)
--- NOTE | 2021-05-02 15:07 | HPEPDOC ---
[facility] Medical History & Physical Date of Admission May 02, 2021 Date of Service: May 02, 2021 History and Physical CHIEF COMPLAINT: Shortness of breath HISTORY OF PRESENT ILLNESS: 70-year-old female history of COPD dependent on oxygen, hypertension, anxiety, GERD, hyperlipidemia presents with shortness of breath. Patient was just here last evening in the ED with panic attacks and was sent home. Prior to this she was just admitted with COPD exacerbation a few days ago. Right now she tells me she's been having frequent panic attacks much more frequent than usual and she has trouble breathing when she is panicking. She tells me this does not feel like her normal COPD exacerbations and her breathing feels fine when she is not panicking. She is requesting anxiolytic medications specifically lorazepam. She appeared very anxious while answering my questions although she was able to answer them in full sentences with BiPAP in place. She tells me she had a panic attack just prior to me coming to see her while in the ED. She was tearful at times. She denies chest pain or palpitations. Tells me that her breathing feels better now although it very quickly worsens every time she panics. She denies abdominal pain. Denies fevers or chills. Denies dysuria. Case was discussed with Dr. Novoa who agreed with admission to the ICU for close monitoring and BiPAP as needed which he will help manage. Repeat ABG in the ED showed improvement of pH to 7.2 and improvement of PCO2 to 75. Dr. Junior tells me she looks much bet ter now than when she presented. PAST MEDICAL/SURGICAL HISTORY: COPD dependent on 2.5 L of oxygen at home Hyperlipidemia, hypertension and anxiety GERD History of duodenal ulcer History of pulmonary nodule follows with pulmonary Hysterectomy SOCIAL HISTORY: Denies alcohol use Denies tobacco use currently tells me she quit in 2016 Denies illicit drug use FAMILY HISTORY: Reviewed and none contributory to this admission ALLERGIES: Please see below. REVIEW OF SYSTEMS: 10 point review of systems complete all negative otherwise stated in HPI HOME MEDICATIONS: Please see below. PHYSICAL EXAMINATION: Constitutional: Awake and alert, in no apparent distress, appears anxious. ENT: Sclera are clear. Mucosa is moist. Respiratory: diminished with poor air entry bilaterally without wheezing. on Bipap in the ED. Cardiovascular: RRR S1 and S2 are normal, no murmur Gastrointestinal: Abdomen is soft, non distended, non tender Musculoskeletal: No lower extremity edema. Neurologic: No focal neurological deficit. Mental Status: A&O x3, normal affect Skin: No visible rashes LABORATORY DATA: See below. IMAGING: See chart MICROBIOLOGY: Please see below. ASSESSMENT 70-year-old female history of COPD dependent on oxygen, hypertension, anxiety, GERD, hyperlipidemia presents with increasing shortness of breath possibly due to panic attack. # Acute respiratory distress in the setting of hypercapnic respiratory failure requiring BiPAP # Chronic respiratory failure with hypoxia and hypercapnia # Panic attack # Leukocytosis # Elevated BNP # chronic COPD # Hypokalemia # Hypertension # Hyperlipidemia # Anxiety # GERD PLAN - Admit to ICU for BiPAP as needed. I asked Dr. Novoa pulmonology to assist with BiPAP. It doesn't appear as though Mr. Lorenzo has a new COPD exacerbation. Her symptoms are likely explained by panic attack in the setting of having chronic respiratory failure with hypoxia and hypercapnia which was exacerbated when she has her panic episodes. - On exam his breath sounds are diminished with reduced air entry bilaterally, she has no wheezing on exam. Appears anxious. - Her leukocytosis could be reactive or secondary to prolonged use of steroids o harpreet the past 2 weeks on and off. I've empirically placed on Zosyn for now and ordered pro-calcitonin. Her lactate was only 1.2. And she is afebrile. Blood cultures are pending. Sputum cultures ordered. Follow-up urinalysis. - For her elevated BNP I ordered an echo. She is euvolemic on exam. - Respiratory panel is negative. - Repeat ABG in the morning. - Small dose Xanax as needed for anxiety - Duonebs PRN - Prednisone continue taper prescribed at last discharge - Incentive spirometry. Aspiration precautions. - Continue home medications for chronic medical problems - DVT prophylaxis: Lovenox A Yousef Hospitalist Vital Signs Vital Signs Date Time Temp Pulse Resp B/P (MAP) Pulse Ox O2 Delivery O2 Flow Rate FiO2 05/02/21 12:45 120 113/63 (80) 96 NIPPV (BIPAP/CPAP) 05/02/21 11:33 30 05/02/21 11:20 2.5 05/02/21 11:20 97.6 28 Laboratory Data Labs 24H Laboratory Tests 2 05/02/21 11:28: Neutrophils (%) (Auto) , Nucleated Red Blood Cells % (auto) 0.0, Neutrophils 55, Band Neutrophils 2, Lymphocytes (Manual) 24, Monocytes (Manual) 13H, Metamyelocytes 1H, Myelocytes 1H, Atypical Lymphocytes 4, Anisocytosis 1+, Macrocytosis 1+, Platelet Estimate INCREASED, Clumped Platelets SMALL AMT, Anion Gap 7L, Glomerular Filtration Rate > 60.0, Lactic Acid Level 1.2, Calcium Level 9.6, Total Bilirubin 0.3, Direct Bilirubin 0.1, Aspartate Amino Transf (AST/SGOT) 15, Alanine Aminotransferase (ALT/SGPT) 20, Alkaline Phosphatase 98, Total Creatine Kinase 46#, Creatine Kinase MB 1.8, Creatine Kinase MB Relative Index 3.91, Troponin I 0.08#, GH-Fli-Y-Type Natriuretic Peptide 2429H, Total Protein 7.7, Albumin 3.6, Albumin/Globulin Ratio 0.9L 05/02/21 12:13: Blood Gas Bicarbonate Standard 24.0, Arterial Blood pH 7.208*L, Arterial Blood Partial Pressure CO2 74.9*H, Arterial Blood Partial Pressure O2 82.8, Arterial Blood Total CO2 31.4H, Arterial Blood HCO3 29.1H, Arterial Blood Base Excess - 0.6, Arterial Blood Oxygen Saturation 94.1L 05/02/21 13:27: POC pH (Misc Panel) 7.262L, POC Base Excess (Misc Panel) 11.0H, POC Saturated Percent O2 (Misc) 93L, POC pO2 (Misc Panel) 81.0, POC pCO2 (Misc Panel) 84.1*H, POC HCO3 (Misc Panel) 37.9H, POC Total CO2 (Misc Panel) 40.0H CBC/BMP Laboratory Tests 05/02/21 11:28 Microbiology Microbiology 05/02/21 Respiratory Virus Panel (PCR) ([facility]) - Final, Complete 05/02/21 Blood Culture, Received Pending 05/02/21 Blood Culture, Received Pending Home Medications Scheduled Buspirone HCl (Buspirone HCl) 7.5 Mg Tablet, 7.5 MG PO BID Cefdinir (Cefdinir) 300 Mg Capsule, 300 MG PO BID Omeprazole (Omeprazole) 40 Mg Capsule.dr, 40 MG PO DAILY Potassium Chloride (Potassium Chloride) 10 Meq Capsule.er, 10 MEQ PO DAILY Prednisone (Prednisone) 10 Mg Tablet, 40 MG PO DAILY TAKE 40MG FOR THREE DAYS, THEN 30 MG FOR 3 DAYS, THEN 20MG FOR THREE DAYS, THEN 10MG FOR THREE DAYS THEN STOP Ropinirole HCl (Ropinirole HCl) 1 Mg Tablet, 1 MG PO QAM Ropinirole HCl (Ropinirole HCl) 1 Mg Tablet, 2 MG PO QHS Salmeterol/Fluticasone (Advair 500-50 Diskus) 1 Each Blst.w.dev, 1 PUFF INH BID Sertraline Hcl (Zoloft) 100 Mg Tablet, 100 MG PO BID Simvastatin (Simvastatin) 20 Mg Tab, 20 MG PO QHS Umeclidinium [place] (Incruse Ellipta) 62.5 Mcg Blst.w.dev, 1 PUFF INH DAILY TAKES IN THE AFTERNOON Scheduled PRN Albuterol Sulfate (Albuterol Sulfate) 2.5 Mg/0.5 Ml Neb, 2.5 MG INH Q6H PRN for SHORTNESS OF BREATH Albuterol Sulfate (Albuterol Sulfate Hfa) 8.5 Gm Hfa.aer.ad, 2 PUFFS INH QID PRN for SHORTNESS OF BREATH Fluticasone Propionate (Fluticasone Propionate) 16 Gm [place].susp, 1 SPRAY NARES BID PRN for CONGESTION Allergies Coded Allergies: No Known Allergies (Unverified , 02/20/21) A-FIB/CHADSVASC A-FIB History Current/History of A-Fib/PAF?: No ZULEMA PERSAUD MD May 02, 2021 15:07
[2021-05-02] MEDS: TIOTROPIUM INHALER/CAPSULE (SPIRIVA) INH SCH (15:29)
[2021-05-02 15:51] VITALS: BP 136/68
[2021-05-02 16:00] VITALS: BP 124/60
[2021-05-02] MEDS: PIPERACILLIN/TAZOBACTAM SOD 4.5 GM in D5W MINI-BAG PLUS 50 ML IV SCH ×2 (16:13→20:20)
[2021-05-02 17:00] VITALS: BP 122/65
[2021-05-02 18:00] VITALS: BP 137/83
[2021-05-02] MEDS: ACETAMINOPHEN TAB 650MG DOSE (2X325MG) PO PRN (18:21)
[2021-05-02] MEDS: ADVAIR HFA 230/21MCG INHALER INH SCH (19:33)
[2021-05-02 19:48] LABS: ABG BASE EXCESS 4.5 (-2.0-2.0); ABG O2 LITER FLOW 30; ABG O2 SATURATION 95.8 % (95.0-99.0); ABG PARTIAL PRESSURE CO2 61.6 mmHg (35.0-45.0); ABG PARTIAL PRESSURE O2 80.8 mmHg (75.0-100.0); ABG STANDARD HCO3 28.5 MEQ/L (22.0-26.0); ABG TOTAL CO2 33.9 MEQ/L (23.0-31.0); ABG pH (ARTERIAL) 7.333 UNITS (7.350-7.450)
[2021-05-02] MEDS: ALPRAZolam 0.25 MG TAB PO PRN (19:54)
[2021-05-02 20:00] VITALS: BP 129/81
--- NOTE | 2021-05-02 20:16 | ECGEPIP ---
[facility] - ED Test Date: 2021-05-02 Pat Name: NANCY GARZA Department: Room: - Gender: Female Propagator: MARIPOSA : 1950 Requested By: Gómez Wilde Order Number: [id number] Reading MD: Gómez Junior Measurements Intervals [place] Rate: 128 P: 75 [place]: 174 QRS: 65 QRSD: 78 T: 67 QT: 280 QTc: 408 Interpretive Statements Sinus tachycardia Low voltage QRS BASELINE ARTIFACT AFFECTS INTERPRETATION Electronically Signed on 05-02-2021 20:16:09 EDT by Gómez Junior
[2021-05-02] MEDS: busPIRone 5 MG TAB PO SCH (20:19)
[2021-05-02] MEDS: DOCUSATE SODIUM 100MG CAPSULE PO SCH (20:19)
[2021-05-02] MEDS: rOPINIRole 1MG TAB PO SCH (20:19)
[2021-05-02] MEDS: SERTRALINE 100 MG TAB PO SCH (20:19)
[2021-05-02] MEDS: SIMVASTATIN 20 MG TAB PO SCH (20:19)
[2021-05-02] MEDS: ENOXAPARIN 40MG/0.4ML SYRINGE (J1650 PER 10MG) SC SCH (20:20)
--- NOTE | 2021-05-02 23:43 | ECHO ---
ECHOCARDIOGRAM DATE OF PROCEDURE: 05/02/2021 Age: 71 Gender: Female Height: 154 cm Weight: 67 kg REFERRING PHYSICIAN: Dr. Jaxon Blancas INDICATION: Dyspnea unspecified MEASUREMENTS: 2D Measurements: Intraventricular septum 0.79 cm Posterior wall 1.17 cm Left ventricle diastole 4.5 cm Left atrium 3.7 cm Left atrial volume index 21 Aortic root 2.0 cm Inferior vena cava 1.5 cm (more than 50% respiratory variation) Doppler Measurements: No aortic stenosis No aortic regurgitation Aortic valve velocity 102 cm/s LVOT velocity 64 cm/s LVOT VTI 10.9 cm Trace mitral regurgitation Mitral A velocity 109 cm/s (complete E:A fusion) Trace tricuspid regurgitation No pulmonic regurgitation Pulmonary artery systolic pressure 39 mmHg MITRAL ANNULAR TISSUE DOPPLER E prime septal 4.3 cm/s DESCRIPTION: Rhythm was sinus tachycardia. This was a moderately technically difficult echocardiogram. This was a 2D, M-mode, color flow Doppler, and pulsed wave Doppler examination including mitral annular tissue Doppler. CONCLUSIONS: 1. Normal left ventricular size at end-diastole. The left ventricle apex was mildly dyskinetic for the apical cap segment and akinetic at apical level. Mid anterior, mid anterolateral, mid anteroseptal, mid inferoseptal segments were akinetic. Normal wall motion and wall thickening elsewhere. No LV thrombus. Severe reduction of overall LV systolic function. LVEF 30% by visual estimate. LV diastolic function was present but indeterminate for quantification characterization due to complete E:A fusion due to sinus tachycardia. 2. Akinesis of the right ventricle apex with normal RV wall motion and overall RV systolic function. 3. Suggestive of mild elevation of pulmonary artery pressure. 4. Normal left atrial size. 5. Lipomatous hypertrophy of the interatrial septum. 6. Tiny circumferential pericardial effusion. No diastolic chamber collapse. 7. Presence of atheroma involving the abdominal aorta. MTDD
[2021-05-03] VITALS (7 sets, daily range): BP systolic 98–114; BP diastolic 53–79
[2021-05-03] MEDS: PIPERACILLIN/TAZOBACTAM SOD 4.5 GM in D5W MINI-BAG PLUS 50 ML IV SCH ×4 (03:01→20:11)
[2021-05-03 04:43] LABS: HEMATOCRIT 35.9 % (36.0-47.0); HEMOGLOBIN 11.3 g/dl (12.0-15.5); MEAN CORPUSCULAR HEMOGLOBIN 29.4 pg (27.0-33.0); MEAN CORPUSCULAR HGB CONC 31.5 g/dl (32.0-36.5); MEAN CORPUSCULAR VOLUME 93.2 fl (80.0-96.0); RED BLOOD COUNT 3.85 10^6/uL (4.00-5.40); WHITE BLOOD COUNT 14.6 10^3/uL (4.0-10.0)
[2021-05-03 04:55] LABS: PLATELET COUNT, AUTOMATED 319 10^3/uL (150-450)
[2021-05-03 05:02] LABS: ALBUMIN 3.2 GM/DL (3.2-5.2); ALT/SGPT 17 U/L (12-78); BILIRUBIN,TOTAL 0.6 MG/DL (0.2-1.0); BLOOD UREA NITROGEN 28 MG/DL (7-18); CALCIUM LEVEL 8.9 MG/DL (8.8-10.2); CARBON DIOXIDE LEVEL 30 MEQ/L (21-32); CHLORIDE LEVEL 102 MEQ/L (98-107); GLOMERULAR FILTRATION RATE > 60.0 (>45); GLUCOSE, FASTING 97 MG/DL (70-100); MAGNESIUM LEVEL 2.3 MG/DL (1.8-2.4); POTASSIUM SERUM 3.9 MEQ/L (3.5-5.1); SODIUM LEVEL 138 MEQ/L (136-145); TOTAL PROTEIN 7.3 GM/DL (6.4-8.2)
[2021-05-03 05:58] LABS: ABG BASE EXCESS 6.5 (-2.0-2.0); ABG HCO3 32.1 MEQ/L (22.0-26.0); ABG O2 SATURATION 99.2 % (95.0-99.0); ABG PARTIAL PRESSURE CO2 50.8 mmHg (35.0-45.0); ABG PARTIAL PRESSURE O2 157.8 mmHg (75.0-100.0); ABG STANDARD HCO3 30.4 MEQ/L (22.0-26.0); ABG TOTAL CO2 33.7 MEQ/L (23.0-31.0); ABG pH (ARTERIAL) 7.419 UNITS (7.350-7.450)
[2021-05-03] MEDS: ALPRAZolam 0.25 MG TAB PO PRN ×2 (07:22→20:11)
[2021-05-03] MEDS: ADVAIR HFA 230/21MCG INHALER INH SCH ×2 (07:43→19:56)
[2021-05-03] MEDS: TIOTROPIUM INHALER/CAPSULE (SPIRIVA) INH SCH (07:43)
[2021-05-03] MEDS: predniSONE 10 MG TAB PO SCH (08:39)
[2021-05-03] MEDS: rOPINIRole 1MG TAB PO SCH ×2 (08:40→20:10)
[2021-05-03] MEDS: busPIRone 5 MG TAB PO SCH ×2 (08:40→20:09)
[2021-05-03] MEDS: PANTOPRAZOLE 40MG TAB (PROTONIX) PO SCH (08:40)
[2021-05-03] MEDS: SERTRALINE 100 MG TAB PO SCH ×2 (08:40→20:09)
[2021-05-03] MEDS: POTASSIUM CHLORIDE 10 MEQ SR TABLET PO SCH (08:40)
[2021-05-03] MEDS: DOCUSATE SODIUM 100MG CAPSULE PO SCH ×2 (08:40→20:10)
--- NOTE | 2021-05-03 08:43 | REP ---
INDICATION: Trend COMPARISON: 05/02/2021 TECHNIQUE: Portable AP view of the chest FINDINGS: The mediastinum and cardiac silhouette are stable and grossly normal. The lung maldonado demonstrate diffuse chronic changes without focal consolidation, effusion, or pneumothorax. Skeletal structures are intact. IMPRESSION: Chronic appearing changes. No acute cardiopulmonary process appreciated. <Electronically signed by Vik Ellsworth > 05/03/21 [id number]
[2021-05-03 09:44] LABS: ABG HCO3 33.4 MEQ/L (22.0-26.0); ABG O2 SATURATION 95.3 % (95.0-99.0); ABG PARTIAL PRESSURE CO2 49.7 mmHg (35.0-45.0); ABG PARTIAL PRESSURE O2 76.5 mmHg (75.0-100.0); ABG STANDARD HCO3 31.8 MEQ/L (22.0-26.0); ABG TOTAL CO2 34.9 MEQ/L (23.0-31.0); ABG pH (ARTERIAL) 7.445 UNITS (7.350-7.450)
--- NOTE | 2021-05-03 10:51 | CR ---
CONSULTATION DATE: 05/03/2021 I attended Zakiya Lorenzo here in the intensive care unit. The patient was examined, chart reviewed. I was available for assistance that evening. HISTORY OF PRESENT ILLNESS: Miss Lorenzo is a 70-year-old female last seen by our office in 2009. At that time, she had had some nodules that were unchanged. She had just quit smoking. She tells me today that she has remained tobacco free. She feels as though her anxiety is crippling her so the minute she gets anxious she gets short of breath and then things escalate for her. She has had multiple visits in the last several days for anxiety and exacerbations. She denies any fever, chills or sweats at home. No significant sputum production. No chest pain. She currently is off noninvasive support and feels that her baseline on 2-1/2 liters nasal cannula. ALLERGIES: None known. CURRENT MEDICATIONS: 1. Prednisone 40 mg. 2. Protonix 40 mg. 3. Requip 1 mg. 4. Potassium as needed. 5. Zoloft 100 mg twice a day. 6. Advair 230/21. 7. BuSpar 7-1/2 mg twice a day. 8. Lovenox. 9. Colace. 10. Zosyn. 11. Xanax 0.25 mg b.i.d. 12. DuoNebs. 13. Flonase nasal spray. 14. Mylanta. 15. Milk of Magnesia. 16. Spiriva. PAST MEDICAL HISTORY: 1. Advanced obstructive lung disease. Last FEV-1 measured 0.9 liters or 33% of predicted. Previous lung nodules. 2. Emphysema. 3. Chronic hypoxemic respiratory failure. 4. Hyperlipidemia. 5. Hypertension. 6. Reflux disease. SOCIAL HISTORY: Currently tobacco free for the last five years. No alcohol. FAMILY HISTORY: Noncontributory for current presentation. REVIEW OF SYSTEMS: As per the HPI. Constitutional: Negative for any recent fever or chills. HEENT: Unremarkable for double or blurred vision. Pulmonary: As per HPI. Cardiac: Unremarkable for angina. GI: Unremarkable for nausea or vomiting. : Unremarkable for frequency or urgency. Neurologic: Unremarkable for seizures or strokes. Endocrine: Unremarkable for diabetes or thyroid disease. Psychiatric: Notable for her anxiety. Musculoskeletal: Unremarkable for any new arthralgias, myalgias. Skin: Unremarkable. PHYSICAL EXAMINATION: GENERAL APPEARANCE: This is a thin, pleasant female in no obvious distress. VITAL SIGNS: Blood pressure 101/60, heart rate 80s with a sinus mechanism, respiratory rate 20-22 without accessory muscle use. She is currently afebrile. HEENT: Otherwise normocephalic and atraumatic. Pupils equal, round, reactive to light. Trachea is in the midline. CHEST: Markedly diminished with symmetric expansion, diffusely hyperresonant to percussion. Tactile fremitus markedly diminished. Breath sound intensity markedly diminished as well but no focal wheezes, rhonchi, crackles or rubs are identified. CARDIAC: Distant but regular. Peripheral pulses palpable. No edema. ABDOMEN: Thin, soft, nontender with active bowel sounds. No evidence of any masses. EXTREMITIES: Without cyanosis or clubbing. NEUROLOGICAL: She is awake, alert and appropriate. PSYCHIATRIC: Currently with normal mood and affect. Pulse oximetry 95% on two liters nasal canula. LABORATORY DATA: Arterial blood gases reviewed since the time of admission. Lowest was a pH of 7.2 with a pCO2 of 84 but I was told by Dr. Junior she had a pH of 7.0 with a pCO2 well over 100 but I do not see that documented. This morning after being on noninvasive support, I of 12, E of 6, FiO2 of 30%, rate of 4, has a pH of 7.419, pCO2 of 50.8, a pO2 of 157.8. White blood cell count 14.6, hemoglobin 11.3, platelet count 319,000. Sodium 138, potassium of 3.9, chloride of 102, CO2 30, BUN 28, creatinine 0.5. Chest x-ray is reviewed, shows no acute changes. I reviewed her most recent CT scan from April and there are several new nodular densities clearly not evident on her skin from 2013. Certainly these could be followed but given her advanced obstructive lung disease and chronic hypoxemic hypercapnic respiratory failure, she is not a candidate for intervention. IMPRESSION: 1. Chronic hypoxemic hypercapnic respiratory failure, [id number]. 2. End-stage obstructive lung disease. 3. Emphysema. 4. Bronchiectasis by CT scan. 5. Lung nodules, small but new from 2014. 6. Underlying anxiety. RECOMMENDATIONS: At this point, I would rapidly wean her prednisone as I do not believe this is an exacerbation of her lung disease. I do believe her anxiety plays a significant role. She is on BuSpar and Sertraline but appears to be doing well with low dose Xanax and certainly that is something that can be used in a home setting as although there is a risk with respiration especially with any benzodiazepine, she seems to be doing well with this. For now, I would leave her off noninvasive support and we will monitor her. Also, DVT prophylaxis is in place. She will be continued to be monitored while she is here. We can certainly discuss the CT issues with her at a later date. Further recommendations will be made on the progress in the record as new information becomes available. MTDD
--- NOTE | 2021-05-03 11:33 | IPN ---
PROGRESS NOTE DATE: 05/03/2021 SUBJECTIVE: Zakiya is seen in the PCU admitted with exacerbation of COPD with acute respiratory failure. She had an echocardiogram done and ejection fraction is reduced at 30%. She also has some pulmonary hypertension as well. She had been taken off her pressure support mask when I was rounding on her and follow-up ABG was pending. Dr. Novoa from pulmonary is also seeing her. She feels better than yesterday. She still feels short of breath. OBJECTIVE: VITAL SIGNS: Blood pressure 101/59, pulse 85, respiratory rate 18, 95% O2 saturation on 2 liters. GENERAL APPEARANCE: Alert, conversant, and not lethargic. HEENT: Unremarkable. LUNGS: Decreased breath sounds with wheezes at the bases. HEART: Regular rhythm. ABDOMEN: Soft and nontender. EXTREMITIES: No peripheral edema. LABORATORY DATA: White count 14.6, hemoglobin 11.3, platelets 319,000. Sodium 138, potassium 3.9, BUN 28, creatinine 0.5. Procalcitonin is up to 0.78. Repeat blood gases still pending. IMAGING DATA: Chest x-ray shows no acute disease. IMPRESSION AND PLAN: 1. Chronic obstructive pulmonary disease exacerbation with acute chronic respiratory failure in a patient who typically uses 2.5 liters nasal cannula at home. She has been taken off her pressure support by her noninvasive ventilatory support by Dr. Novoa. Follow-up blood gas has been ordered and appreciate his assistance with this. Continue steroid therapy and empiric antibiotic therapy with Zosyn (Procalcitonin has risen up to a range in which it would be reasonable to continue antibiotics), and a bronchodilator. 2. Anxiety that complicates her care. Judicious use of anxiolytics have been ordered. 3. Congestive heart failure with reduced ejection fraction that seems compensated and there is no edema on exam. 4. History of peptic ulcer disease. Continue proton pump inhibitor (PPI) therapy with Protonix particularly in the face of the steroid therapy.
[2021-05-03] MEDS ORDERED: PILL CUTTER 1 EACH XX PRN (20:10)
[2021-05-03] MEDS: SIMVASTATIN 20 MG TAB PO SCH (20:10)
[2021-05-03] MEDS: ENOXAPARIN 40MG/0.4ML SYRINGE (J1650 PER 10MG) SC SCH (20:11)
[2021-05-04] VITALS (21 sets, daily range): BP systolic 108–152; BP diastolic 56–72; O2SAT 92–98
[2021-05-04] MEDS: PIPERACILLIN/TAZOBACTAM SOD 4.5 GM in D5W MINI-BAG PLUS 50 ML IV SCH ×4 (02:56→21:38)
[2021-05-04] MEDS: ADVAIR HFA 230/21MCG INHALER INH SCH ×2 (08:13→19:49)
[2021-05-04] MEDS: TIOTROPIUM INHALER/CAPSULE (SPIRIVA) INH SCH (08:14)
[2021-05-04] MEDS: PANTOPRAZOLE 40MG TAB (PROTONIX) PO SCH (08:40)
[2021-05-04] MEDS: predniSONE 10 MG TAB PO SCH (08:40)
[2021-05-04] MEDS: busPIRone 5 MG TAB PO SCH ×2 (08:40→21:37)
[2021-05-04] MEDS: POTASSIUM CHLORIDE 10 MEQ SR TABLET PO SCH (08:40)
[2021-05-04] MEDS: SERTRALINE 100 MG TAB PO SCH ×2 (08:40→21:37)
[2021-05-04] MEDS: DOCUSATE SODIUM 100MG CAPSULE PO SCH ×2 (08:41→21:38)
[2021-05-04] MEDS: rOPINIRole 1MG TAB PO SCH ×2 (08:41→21:37)
[2021-05-04] MEDS: ALPRAZolam 0.25 MG TAB PO PRN ×2 (08:47→21:37)
[2021-05-04 08:56] LABS: HEMATOCRIT 37.7 % (36.0-47.0); HEMOGLOBIN 11.8 g/dl (12.0-15.5); MEAN CORPUSCULAR HEMOGLOBIN 29.4 pg (27.0-33.0); MEAN CORPUSCULAR HGB CONC 31.3 g/dl (32.0-36.5); MEAN CORPUSCULAR VOLUME 93.8 fl (80.0-96.0); PLATELET COUNT, AUTOMATED 333 10^3/uL (150-450); RED BLOOD COUNT 4.02 10^6/uL (4.00-5.40); WHITE BLOOD COUNT 13.9 10^3/uL (4.0-10.0)
[2021-05-04 09:21] LABS: ALBUMIN 3.3 GM/DL (3.2-5.2); ALT/SGPT 18 U/L (12-78); BILIRUBIN,TOTAL 0.6 MG/DL (0.2-1.0); BLOOD UREA NITROGEN 26 MG/DL (7-18); CALCIUM LEVEL 9.4 MG/DL (8.8-10.2); CARBON DIOXIDE LEVEL 37 MEQ/L (21-32); CHLORIDE LEVEL 102 MEQ/L (98-107); CREATININE FOR GFR 0.67 MG/DL (0.55-1.30); GLOMERULAR FILTRATION RATE > 60.0 (>45); GLUCOSE, FASTING 103 MG/DL (70-100); MAGNESIUM LEVEL 2.3 MG/DL (1.8-2.4); POTASSIUM SERUM 3.5 MEQ/L (3.5-5.1); SODIUM LEVEL 143 MEQ/L (136-145)
--- NOTE | 2021-05-04 10:50 | IPN ---
PROGRESS NOTE DATE: 05/04/2021 SUBJECTIVE: Zakiya is seen in PCU. She was moved out of ICU yesterday. She has a lot of anxiety and that is mostly what she wants to talk about today. She feels less short of breath. OBJECTIVE: VITAL SIGNS: Stable. O2 saturation 94% on 2 liters. GENERAL APPEARANCE: She is alert and conversant. She claims to be anxious, but does not look visible anxious. LUNGS: Few wheezes. HEART: Regular rate. ABDOMEN: Soft and nontender. EXTREMITIES: No peripheral edema. LABORATORY DATA: White count is down to 13.9. Electrolytes unremarkable. IMPRESSION/PLAN: 1. Chronic hypoxemic and hypercapnic respiratory failure acute on chronic. She has improved and no longer needs noninvasive ventilatory support. 2. Severe anxiety. Continue BuSpar, sertraline, and use Xanax on a p.r.n. basis. The rest of her medical problems are stable today.
[2021-05-04] MEDS: IPRATROPIUM 0.5MG/ALBUTEROL 2.5MG INH SOL UD 3ML (DUONEB) NEB PRN (15:02)
[2021-05-04] MEDS: SIMVASTATIN 20 MG TAB PO SCH (21:38)
[2021-05-04] MEDS: ENOXAPARIN 40MG/0.4ML SYRINGE (J1650 PER 10MG) SC SCH (21:38)
[2021-05-05] VITALS (21 sets, daily range): BP systolic 105–128; BP diastolic 55–62; O2SAT 91–98
[2021-05-05] MEDS: PIPERACILLIN/TAZOBACTAM SOD 4.5 GM in D5W MINI-BAG PLUS 50 ML IV SCH ×2 (03:59→08:49)
[2021-05-05 05:06] LABS: HEMATOCRIT 33.2 % (36.0-47.0); HEMOGLOBIN 10.4 g/dl (12.0-15.5); MEAN CORPUSCULAR HEMOGLOBIN 29.2 pg (27.0-33.0); MEAN CORPUSCULAR HGB CONC 31.3 g/dl (32.0-36.5); MEAN CORPUSCULAR VOLUME 93.3 fl (80.0-96.0); PLATELET COUNT, AUTOMATED 284 10^3/uL (150-450); RED BLOOD COUNT 3.56 10^6/uL (4.00-5.40); WHITE BLOOD COUNT 12.5 10^3/uL (4.0-10.0)
[2021-05-05 05:38] LABS: BLOOD UREA NITROGEN 20 MG/DL (7-18); CALCIUM LEVEL 8.7 MG/DL (8.8-10.2); CARBON DIOXIDE LEVEL 36 MEQ/L (21-32); CHLORIDE LEVEL 102 MEQ/L (98-107); CREATININE FOR GFR 0.42 MG/DL (0.55-1.30); GLOMERULAR FILTRATION RATE > 60.0 (>45); GLUCOSE, FASTING 90 MG/DL (70-100); NT-PRO BNP 4538 PG/ML (<125); POTASSIUM SERUM 3.1 MEQ/L (3.5-5.1); SODIUM LEVEL 143 MEQ/L (136-145)
[2021-05-05] MEDS: ADVAIR HFA 230/21MCG INHALER INH SCH ×2 (07:32→20:22)
[2021-05-05] MEDS: TIOTROPIUM INHALER/CAPSULE (SPIRIVA) INH SCH (07:32)
--- NOTE | 2021-05-05 08:36 | REP ---
INDICATION: chf COMPARISON: 05/03/2021 TECHNIQUE: PA and lateral. FINDINGS: Mediastinum and cardiac silhouette are stable. Allowing for variation in technique, the lung maldonado demonstrate chronic appearing stable changes without obvious acute consolidation, effusion, or pneumothorax. Skeletal structures intact. IMPRESSION: Stable chronic appearing changes. No obvious acute consolidation or effusion. <Electronically signed by Vik Ellsworth > 05/05/21 [id number]
[2021-05-05] MEDS: predniSONE 10 MG TAB PO SCH (08:46)
[2021-05-05] MEDS: busPIRone 5 MG TAB PO SCH ×2 (08:47→20:33)
[2021-05-05] MEDS: PANTOPRAZOLE 40MG TAB (PROTONIX) PO SCH (08:48)
[2021-05-05] MEDS: SERTRALINE 100 MG TAB PO SCH ×2 (08:48→20:35)
[2021-05-05] MEDS: rOPINIRole 1MG TAB PO SCH ×2 (08:48→20:34)
[2021-05-05] MEDS: POTASSIUM CHLORIDE 10 MEQ SR TABLET PO SCH ×2 (08:48→20:34)
[2021-05-05] MEDS: DOCUSATE SODIUM 100MG CAPSULE PO SCH ×2 (08:49→20:34)
[2021-05-05] MEDS: ALPRAZolam 0.25 MG TAB PO PRN ×2 (08:51→20:35)
--- NOTE | 2021-05-05 12:03 | IPN ---
PROGRESS NOTE DATE: 05/05/2021 SUBJECTIVE: Zakiya's pulmonary status seems stable. She has a lot of anxiety, which complicates her assessment. Most of today's visit seemed to be focused on being sure that her alprazolam was not being discontinued. I did increase the dose of her BuSpar yesterday. She was on a pediatric dose previously and we increased that to a more therapeutic adult dose. She says she is short of breath at times, but attributes it to her anxiety. OBJECTIVE: VITAL SIGNS: Afebrile. Vital signs stable. O2 sat is 98% on 2 liters. HEENT: Unremarkable. LUNGS: Few wheezes with bases clear. HEART: Regular rate and rhythm. ABDOMEN: Soft and nontender. EXTREMITIES: No peripheral edema. LABORATORY DATA: CBC stable. Electrolytes show potassium down to 3.1. Her BNP is up to 4500. IMPRESSION AND PLAN: 1. Chronic hypoxic and hypercapnic respiratory failure secondary to bronchitis. She is on Zosyn, bronchodilator, and steroids. I am stopping the Zosyn and putting her on an oral antibiotic today. 2. Anxiety. BuSpar was increased yesterday. I reassured her that her Xanax has not been discontinued. 3. Congestive heart failure (CHF) with reduced ejection fraction. BMP is higher, but she sees compensated on exam without evidence of volume overload. 4. History of peptic ulcer disease. Continue proton pump inhibitor (PPI) therapy while on the steroid. 5. Possible discharge tomorrow
[2021-05-05] MEDS: IPRATROPIUM 0.5MG/ALBUTEROL 2.5MG INH SOL UD 3ML (DUONEB) NEB PRN (12:32)
[2021-05-05] MEDS ORDERED: CEFDINIR 300 MG CAP (OMNICEF) PO ONE (15:00)
[2021-05-05] MEDS: ENOXAPARIN 40MG/0.4ML SYRINGE (J1650 PER 10MG) SC SCH (20:33)
[2021-05-05] MEDS: CEFDINIR 300 MG CAP (OMNICEF) PO SCH (20:35)
[2021-05-05] MEDS: ACETAMINOPHEN TAB 650MG DOSE (2X325MG) PO PRN (20:35)
[2021-05-05] MEDS: SIMVASTATIN 20 MG TAB PO SCH (20:35)
[2021-05-06] VITALS (7 sets, daily range): BP systolic 101–138; BP diastolic 59–72; O2SAT 90–97
[2021-05-06 05:00] LABS: HEMATOCRIT 34.4 % (36.0-47.0); HEMOGLOBIN 10.6 g/dl (12.0-15.5); MEAN CORPUSCULAR HEMOGLOBIN 29.2 pg (27.0-33.0); MEAN CORPUSCULAR HGB CONC 30.8 g/dl (32.0-36.5); MEAN CORPUSCULAR VOLUME 94.8 fl (80.0-96.0); PLATELET COUNT, AUTOMATED 258 10^3/uL (150-450); RED BLOOD COUNT 3.63 10^6/uL (4.00-5.40); WHITE BLOOD COUNT 12.8 10^3/uL (4.0-10.0)
[2021-05-06 05:15] LABS: BLOOD UREA NITROGEN 18 MG/DL (7-18); CALCIUM LEVEL 8.5 MG/DL (8.8-10.2); CARBON DIOXIDE LEVEL 36 MEQ/L (21-32); CHLORIDE LEVEL 105 MEQ/L (98-107); CREATININE FOR GFR 0.54 MG/DL (0.55-1.30); GLOMERULAR FILTRATION RATE > 60.0 (>45); GLUCOSE, FASTING 126 MG/DL (70-100); POTASSIUM SERUM 3.5 MEQ/L (3.5-5.1); SODIUM LEVEL 142 MEQ/L (136-145)
[2021-05-06] MEDS: TIOTROPIUM INHALER/CAPSULE (SPIRIVA) INH SCH (07:41)
[2021-05-06] MEDS: ADVAIR HFA 230/21MCG INHALER INH SCH (07:42)
[2021-05-06] MEDS: DOCUSATE SODIUM 100MG CAPSULE PO SCH (09:00)
[2021-05-06] MEDS: ALPRAZolam 0.25 MG TAB PO PRN (09:01)
[2021-05-06] MEDS: CEFDINIR 300 MG CAP (OMNICEF) PO SCH (09:01)
[2021-05-06] MEDS: rOPINIRole 1MG TAB PO SCH (09:02)
[2021-05-06] MEDS: SERTRALINE 100 MG TAB PO SCH (09:02)
[2021-05-06] MEDS: PANTOPRAZOLE 40MG TAB (PROTONIX) PO SCH (09:02)
[2021-05-06] MEDS: predniSONE 10 MG TAB PO SCH (09:03)
[2021-05-06] MEDS: busPIRone 5 MG TAB PO SCH (09:03)
[2021-05-06] MEDS: POTASSIUM CHLORIDE 10 MEQ SR TABLET PO SCH (09:04)
[2021-05-06] MEDS ORDERED: ALPR0.25 PO (09:08)
[2021-05-06] MEDS ORDERED: BUSP5TA PO (09:08)
--- NOTE | 2021-05-06 09:50 | DSES ---
DISCHARGE SUMMARY DATE OF ADMISSION: 05/02/2021 DATE OF DISCHARGE: 05/05/2021 PRINCIPAL DIAGNOSIS: Acute on chronic hypoxemic hypercapnic respiratory failure. SECONDARY DIAGNOSES: End-stage COPD, bronchiectasis, chronic anxiety disorder, new lung nodules, history of peptic ulcer disease, congestive heart failure with reduced ejection fraction. BRIEF HISTORY: Zakiya Lorenzo was admitted with exacerbation of COPD. DETAILS OF ADMISSION HISTORY AND PHYSICAL/HOSPITAL COURSE: She was admitted to PCU bed. She was treated with a nebulized bronchodilator, p.o. steroids and Zosyn. She was on Zosyn until yesterday when we put her on her own antibiotic. She has a lot of anxiety and it contributed quite a bit to her shortness of breath. I adjusted the dose of her Buspar, she was essentially on a pediatric dose, so we increased that. She uses Xanax on a p.r.n. basis, which seems to help her quite a bit. The rest of her medical problems remained stable during her hospitalization. PHYSICAL EXAMINATION ON DISCHARGE: VITAL SIGNS: Blood pressure 130/72 and O2 saturation 96% on 2 liters. GENERAL: She is resting comfortably, no distress. She is alert and conversant. LUNGS: Entirely clear. HEART: Regular rhythm. ABDOMEN: Soft, nontender, no masses. EXTREMITIES: No peripheral edema. LABORATORY DATA ON DISCHARGE: White count 12.8, hemoglobin 10.6, platelets 258,000. Sodium 142, potassium 3.5, BUN 18, creatinine 0.5, glucose 126. Blood cultures were negative. Respiratory panel negative. IMAGING STUDIES: Chest x-rays were essentially unrevealing (Dr. Novoa's consult notes pulmonary nodules; those are from a CT scan of the chest from April). DISPOSITION: She is discharged home improved and in stable condition. She has a home health services referral. She will continue oxygen 2 liters nasal cannula, which she was using prior to admission. She will follow-up with her primary care provider, Dr. Fox in a week and follow-up with Dr. Novoa per his office. Activity is as tolerated. She is on a 2 gram sodium diet, 1800 cc per day fluid restriction, O2 at 2 liters nasal cannula. DISCHARGE MEDICATIONS: She will continue: 1. Labetalol nebulizer by inhaler q.i.d. p.r.n. 2. Fluticasone nasal spray as needed. 3. Omeprazole 40 mg daily. 4. Potassium chloride 10 mEq daily. 5. Requip 1 mg in the morning and 2 mg at bedtime. 6. Advair 500/50 one inhalation b.i.d. 7. Zoloft 100 mg b.i.d. 8. Simvastatin 20 mg daily. 9. Incruse Ellipta one inhalation daily. 10.Prednisone taper 40 mg for 3 days, 30 mg for 3 days, 20 mg for 3 days, 10 mg for 3 days and then off. 11.Her Buspar dose has been increased to 15 mg b.i.d. 12.She will resume Cefdinir 300 mg b.i.d. she was taking before admission. 13.I sent a prescription for Alprazolam 0.25 mg b.i.d. p.r.n. As noted above, she seems to respond well to this and it helped a lot with her dyspnea. She was cautioned concerning potential for dependency, reduced effectiveness of her time, and sedation issues. There are no pending labs.
== END 2021-05-06 12:45 | disposition home health service (06) | DRG 189 ==
LOC: M ED 11:18 → M ED INP 14:16 → ENRESERV 14:54 → M ICU 15:44 → M PCU 05-03 17:31
PROVIDERS: ADMIT Family Medicine; ATTEND Family Medicine
DX: J96.22 Acute and chronic respiratory failure with hypercapnia (principal); J96.21 Acute and chronic respiratory failure with hypoxia; J44.9 Chronic obstructive pulmonary disease, unspecified; I10 Essential (primary) hypertension; F41.0 Panic disorder [episodic paroxysmal anxiety]; K21.9 Gastro-esophageal reflux disease without esophagitis; E78.5 Hyperlipidemia, unspecified; R91.1 Solitary pulmonary nodule; E87.6 Hypokalemia; Z99.81 Dependence on supplemental oxygen; Z79.899 Other long term (current) drug therapy; Z87.891 Personal history of nicotine dependence; Z87.11 Personal history of peptic ulcer disease

== ENCOUNTER → 2021-05-28 | Outpatient (REF) | payer MEDICARE, MEDICAID ==
[~2021-05-28] MED LIST changes: +ALPR0.25 PO; +CEFD300CAP PO
[2021-05-28 13:52] LABS: BLOOD UREA NITROGEN 13 MG/DL (7-18); CALCIUM LEVEL 9.5 MG/DL (8.8-10.2); CARBON DIOXIDE LEVEL 35 MEQ/L (21-32); CHLORIDE LEVEL 101 MEQ/L (98-107); CREATININE FOR GFR 0.44 MG/DL (0.55-1.30); GLOMERULAR FILTRATION RATE > 60.0 (>45); GLUCOSE, FASTING 97 MG/DL (70-100); SODIUM LEVEL 141 MEQ/L (136-145)
== END ==
LOC: M SHH 13:08
PROVIDERS: ATTEND Internal Medicine
DX: E87.6 Hypokalemia (principal)

== ENCOUNTER → 2021-07-31 | Outpatient (REF) | payer MEDICARE, MEDICAID | LOC: M LAB REF 13:57 | PROVIDERS: ATTEND Internal Medicine | DX: G25.81 Restless legs syndrome (principal); D50.9 Iron deficiency anemia, unspecified ==

== ENCOUNTER 2021-09-12 07:43 | Outpatient (CLI) | payer MEDICAID, MEDICARE ==
[~2021-09-12 07:43] MED LIST changes: +ALBUTEROL 90 MCG/ACT 8GM HFA INHALER INH PRN; +ALBUTEROL SULFATE 2.5 MG/0.5 ML INH NEB SOLN INH PRN; +EPINEPHrine INJ 1 MG/ML 1ML AMP IM PRN; +NS 1,000 ML IV SCH; +diphenhydrAMINE 50MG/ML VIAL (J1200) IV PRN; +methylPREDNISolone 125MG 2ML VIAL IV PRN
[2021-09-12 07:59] VITALS: BP 110/57
[2021-09-12] MEDS ORDERED: CASIRIVIMAB (REGN10933) 600 MG, IMDEVIMAB (REGN10987) 600 MG in NS 250 ML IV ONE (08:15)
[2021-09-12] MEDS ORDERED: ACETAMINOPHEN TAB 650MG DOSE (2X325MG) PO ONE (08:15)
[2021-09-12] MEDS ORDERED: diphenhydrAMINE 25MG CAP PO ONE (08:15)
[2021-09-12] MEDS ORDERED: FERR1TAB8 PO (10:07)
[2021-09-12] MEDS ORDERED: LOSA100T8 PO (10:07)
[2021-09-12] MEDS ORDERED: ALPR0.25 PO (10:07)
[2021-09-12] MEDS ORDERED: BUSP15TA47 PO (10:07)
== END 2021-09-12 08:31 ==
LOC: M OPCLI4PR 07:43
PROVIDERS: ATTEND Registered Nurse
DX: Z53.20 Procedure and treatment not carried out because of patient's decision for unspecified reasons (principal)

== ENCOUNTER 2021-09-12 08:40 | Inpatient (IN) | payer MEDICARE ==
[~2021-09-12] VITALS: Ht 154.9 cm; Wt 66.2 kg
[~2021-09-12 08:40] MED LIST changes: -ALBUTEROL 90 MCG/ACT 8GM HFA INHALER INH PRN; -ALBUTEROL SULFATE 2.5 MG/0.5 ML INH NEB SOLN INH PRN; -EPINEPHrine INJ 1 MG/ML 1ML AMP IM PRN; -NS 1,000 ML IV SCH; -diphenhydrAMINE 50MG/ML VIAL (J1200) IV PRN; -methylPREDNISolone 125MG 2ML VIAL IV PRN
--- OUTSIDE RECORDS SUMMARY | 2021-09-12 08:45 | CCD | Continuity of Care Document ---
Author Author Zakiya Figueredo M.D. Organization Unknown Address [address] [facility] [address] [place] [address] Phone [phone] Care Team Providers Care Livestock Inspector Name Role Phone Leslie Pinoian AURA AUTM [phone] Tammy Figueredo MD AUTM [phone] [facility] AUTM [phone] Problems Active Problems Provider Date Asthma without status asthmaticus Joanie Coffey FNP Onset: 11/30/2011 Gastroesophageal reflux disease Joanie Coffey FNP Onset: 0 11/30/2011 Essential hypertension Joanie Coffey FNP Onset: 11/30/2011 Osteoporosis Joanie Coffey FNP Onset: 11/30/2011 Vitamin D deficiency Joanie Coffey FNP Onset: 11/30/2011 Pure hypercholesterolemia Joanie Coffey FNP Onset: 012 Anxiety state Joanie Coffey FNP Onset: 11/30/2011 Chronic obstructive lung disease Joanie Coffey FNP Onset: 11/30/2011 Depressive disorder Joanie Coffey FNP Onset: 11/30/2011 Social History Type Date Description Comments Sex Unknown ETOH Use Denies alcohol use Tobacco Use Start: Unknown End: Unknown Patient is a former smoker QUIT 08/2012 STARTED AGE 24. Patient smoked 1 pack a day for 60 years, quitting in 2011 Allergies, Adverse Reactions, Alerts Description No Known Drug Allergies Medications Active Medications SIG Qnty Indications Ordering Provide r Date Nystatin 470483Hftg/ML Suspension Swish And Swallow Five Milliliters By Mouth Five Times Daily For 10 Days 200units Tammy Figueredo M.D. 05/20/2021 Buspirone HCL 15mg Tablets take one tablet by mouth twice a day 180tabs Tammy Figueredo M.D. Alprazolam 0.25mg Tablets 1 by mouth every night at bedtime and one every day by mouth as needed anxiety 45tabs Tammy Figueredo M.D. 05/13/2021 Potassium Chloride Mami ER 10Meq Tablets ER Take One Tablet By Mouth @8Am 30tabs Tammy Fernandez M.D. 04/24/2021 Ondansetron HCL 4mg Tablets Take One Tablet By Mouth Three Times Daily as Needed For Nausea 30tabs Tammy Figueredo M.D. 02/06/2021 Ropinirole HCL 1mg Tablets Take One Tablet By Mouth @8Am and Take Two Tablets @8PM 90tabs Tammy Figueredo M.D. 06/27/2019 Fluticasone Propionate 50mcg/Act Suspension use 2 sprays in each nostril once daily as needed 16units Tammy Figueredo M.D. 03/09/2017 Advair Diskus 500-50mcg/Dose Aeros ol Inhale 1 puff By Mouth Twice Daily 120units Tammy balderas M.D. 12/02/2016 Incruse Ellipta 62.5mcg/Inh Aeroso l Inhale 1 puff By Mouth Once Daily 30units Dolly Issa 12/02/2016 Sertraline HCL 100mg Tablets Take One Tablet By Mouth @8Am and Take One Tablet By Mouth @8PM 60tabs J45.9 98 Tammy Figueredo M.D. 06/05/2016 Nebulizer Kit/Tubing/Mouthpiece K it use as directed 1unnayeli Figueredo M.D. 01/21/20 16 Nebulizer Misc use as directed dxj44.9 1unnayeli Figueredo M.D. 01/21/2016 Vitamin D 2000Unit Tablets 2 by mouth every day Joanie Coffey FNP 09/05/2015 Calcium + D Tablets 2 po qd Joanie Coffey FNP 11/08/2012 Simvastatin 20mg Tablets Take One Tablet By Mouth @8PM 30tabs Tammy Figueredo M.D. 11/08/19 13 Proair HFA 108(90Base) mcg/Act Aer osol Inhale Two Puffs By Mouth Four Times Daily as Needed 17units Tammy Figueredo M.D. 11/08/2012 Albuterol Sulfate (2 .5mg/3ML) 0.083% Nebulizer inhale the contents of one vial via nebulizer four chaparro es a day as needed 150units Joanie Coffey FNP 09/01/[address] Take One Capsule By Mouth @8Am 30caps Tammy Figueredo M.D. Prednisone 10mg Tablets Take 4 Tabs Daily For 3 Days, Then 3 Tabs For 3 Days, 2 Tabs For 3 Days, 1 Tab For 3 Days Then Stop Unknown History Medications Losartan Potassium 100mg Tablets Take One Tablet po hs 90tabs Tammy Figueredo M.D. 04/24/20 - 04/24/2021 Buspirone HCL 7.5mg Tablets take one tablet by mouth twice a day 60tabs Adina Issa 04/23/2021 - 05/07/2021 Buspirone HCL 5mg Tablets take one tablet by mouth twice a day 60tabs Tammy Figueredo M.D. - 04/23/2021 Medications Administered in Office Medication SIG Qnty Indications Ordering Provider Date Administration Of Flu Vaccine Inj ection Amanda Pino [employer] 08/08/2020 Administration Of Flu Vaccine Inj ection Joanie Coffey FNP 09/19/2019 Administration Of Flu Vaccine Inj ection Joanie Coffey FNP 08/11/2018 Administration Of Flu Vaccine Inj ection Joanie Coffey,AURA 07/30/2017 Administration Of Flu Vaccine Inj ection Joanie Coffey FNP 09/03/2015 Administration Of Flu Vaccine Inj Joanie Khanna,[employer]IALS 10/22/2011 Immunizations CPT Code Status Date Vaccine Lot # [id number] Given 07/31/2021 Influenza Vaccin e Quadrivalent Preser/Antibiotic Free Im Use [id number] Given 08/08/2020 Influenza Vaccin e Quadrivalent Preser/Antibiotic Free Im Use [id number] 56516 Given 09/19/2019 Influenza Vaccin e Quadrivalent Preser/Antibiotic Free Im Use [id number] 33357 Given 08/11/2018 Influenza Virus Vaccine, Quadrivalent ([id number]), Derived From 2 Given 07/30/2017 Influenza Vaccin e Quadrivalent Preser/Antibiotic Free Im Use [id number] 32437 Given 12/02/2016 Prevnar 13 [id number] Given 09/03/2015 Fluvirin Virus Vaccine 11399 01 78829 Given 01/07/2015 Pneumovax 23 [id number] Q2037 Given 10/22/2011 Fluvirin Virus Vaccine Vital Signs Date Vital Result Comment 07/31/2021 9:29am BP Systolic 126 mmHg RT Arm BP Diastolic 64 mmHg RT Arm Heart Rate 77 /min Height 61 inches 5'1" Weight 143.00 lb O2 % BldC Oximetry 93 % With O2 BMI (Body Mass Index) 27.0 kg/m2 05/13/2021 11:23am BP Systolic 110 mmHg BP Diastolic 66 mmHg Heart Rate 78 /min Height 61 inches 5'1" Weight 134.00 lb O2 % BldC Oximetry 90 % With O2, 94% BMI (Body Mass Index) 25.3 kg/m2 Results Test Acquired Date Facility Test Result H/L Range Note Laboratory test finding 07/31/2021 [facility] [address] [place] [address] [phone] Ferritin 21 NG/ML Normal 8-252 Complete Blood Count 07/31/2021 [facility] Life [employer] Specialist: [place] [address] [phone] WBC 9.6 x10*3/UL 4.1 - 10.9 RBC 4.18 x10*6/UL Low 4.20 - 6.30 Hemoglobin 12.3 g/dL 12.0 - 18.0 Hematocrit 34.9 % Low 37.0 - 51.0 MCV 83.4 fL 80.0 - 97.0 MCH 29.5 pg 26.0 - 32.0 MCHC 35.4 g/dL 31.0 - 38.0 RDW 13.0 % 11.6 - 13.7 PLT 251 x10*3/UL 140 - 440 MPV 7.7 FL Low 7.8 - 11.0 Lymph % 20.5 % 10.0 - 58.5 Mid % 5.1 % 1.7 - 9.3 Neut % 74.4 % 37.0 - 92.0 Lymph # 1.9 x10*3/UL 0.6 - 4.1 Mid # 0.5 x10*3/UL 0.1 - 0.6 Neut # 7.2 x10*3/UL 2.0 - 7.8 Laboratory test finding 07/31/2021 [facility] barry [employer] Specialist: [place] [address] [phone] Magnesium 1.8 mg/dL 1.8 - 2.4 Basic Metabolic Panel 07/31/2021 [facility] [employer] Specialist: Dr Peewee Bolivar [place], [place] [address] [phone] Glucose 89 mg/dL 74 - 99 1 BUN 19 mg/dL High 7 - 18 Creatinine 0.5 mg/dL Low 0.6 - 1.3 Sodium 140 mEq/L 136 - 145 Potassium 4.1 mEq/L 3.5 - 5.1 Chloride 101 mEq/L 98 - 107 Carbon Dioxide 36 mEq/L High 21 - 32 Calcium 9.3 mg/dL 8.5 - 10.1 GFR >= 60 mL/min >60 GFR >= 60 mL/min >60 2 Laboratory test finding 07/31/2021 [facility] kaya barry [employer] Specialist: [place] [address] [phone] Thyroid Stimulating Hormone 1.17 uIU/mL 0.3 6 - 3.74 Basic Metabolic Profile 05/28/2021 [facility] [address] [place] [address] [phone] Glucose, Fasting 97 mg/dL Normal 70-100 Blood Urea Nitrogen 13 mg/dL Normal 7-18 Creatinine For GFR 0.44 mg/dL Low 0.55-1.30 Glomerular Filtration Rate > 60.0 Normal >45 3 Sodium Level 141 mEq/L Normal 136-145 Potassium Serum 4.0 mEq/L Normal 3.5-5.1 Chloride Level 101 mEq/L Normal 98-107 Carbon Dioxide Level 35 mEq/L High 21-32 Anion Gap 5 mEq/L Low 8-16 Calcium Level 9.5 mg/dL Normal 8.8-10.2 Complete Blood Count 05/13/2021 [facility] kaya freeman [employer] Specialist: [place] [address] [phone] WBC 13.4 x10*3/UL High 4.1 - 10.9 4 RBC 4.07 x10*6/UL Low 4.20 - 6.30 Hemoglobin 12.2 g/dL 12.0 - 18.0 Hematocrit 35.7 % Low 37.0 - 51.0 MCV 87.8 fL 80.0 - 97.0 MCH 30.0 pg 26.0 - 32.0 MCHC 34.1 g/dL 31.0 - 38.0 RDW 13.6 % 11.6 - 13.7 PLT 351 x10*3/UL 140 - 440 MPV 7.2 FL Low 7.8 - 11.0 Lymph % 23.5 % 10.0 - 58.5 Mid % 5.9 % 1.7 - 9.3 Neut % 70.6 % 37.0 - 92.0 Lymph # 3.1 x10*3/UL 0.6 - 4.1 Mid # 0.8 x10*3/UL High 0.1 - 0.6 Neut # 9.5 x10*3/UL High 2.0 - 7.8 Comprehensive Chem Profile 05/13/2021 [facility] lion [employer] Specialist: [place] [address] [phone] Glucose 88 mg/dL 74 - 99 5 BUN 19 mg/dL High 7 - 18 Creatinine 0.5 mg/dL Low 0.6 - 1.3 Sodium 143 mEq/L 136 - 145 Potassium 3.7 mEq/L 3.5 - 5.1 Chloride 102 mEq/L 98 - 107 Carbon Dioxide 35 mEq/L High 21 - 32 Calcium 9.5 mg/dL 8.5 - 10.1 Alk. Phosphatase 90 mg/dL 46 - 116 Total Bilirubin 0.9 mg/dL 0.2 - 1.0 Ast (Sgot) 17 U/L 15 - 37 Alt (SGPT) 30 U/L 12 - 78 Albumin 3.4 g/dL 3.4 - 5.0 Total Protein 6.5 g/dL 6.4 - 8.2 A/G Ratio 1.10 CALC 1.00 - 1.90 GFR >= 60 mL/min >60 GFR >= 60 mL/min >60 6 Complete Blood Count 04/23/2021 [facility] [employer] Specialist: [place] [address] [phone] WBC 18.7 x10*3/UL High 4.1 - 10.9 7 RBC 4.14 x10*6/UL Low 4.20 - 6.30 Hemoglobin 12.2 g/dL 12.0 - 18.0 Hematocrit 36.2 % Low 37.0 - 51.0 MCV 87.5 fL 80.0 - 97.0 MCH 29.5 pg 26.0 - 32.0 MCHC 33.8 g/dL 31.0 - 38.0 RDW 13.0 % 11.6 - 13.7 PLT 523 x10*3/UL High 140 - 440 MPV 7.2 FL Low 7.8 - 11.0 Lymph % 24.9 % 10.0 - 58.5 Mid % 5.6 % 1.7 - 9.3 Neut % 69.5 % 37.0 - 92.0 Lymph # 4.6 x10*3/UL High 0.6 - 4.1 Mid # 1.1 x10*3/UL High 0.1 - 0.6 Neut # 13.0 x10*3/UL High 2.0 - 7.8 Basic Metabolic Panel 04/23/2021 [facility] [employer] Specialist: Dr P[place]we[place] [address] [phone] Glucose 91 mg/dL 74 - 99 8 BUN 24 mg/dL High 7 - 18 Creatinine 0.6 mg/dL 0.6 - 1.3 Sodium 141 mEq/L 136 - 145 Potassium 3.0 mEq/L Low 3.5 - 5.1 Chloride 97 mEq/L Low 98 - 107 Carbon Dioxide 43 mEq/L High 21 - 32 Calcium 9.5 mg/dL 8.5 - 10.1 GFR >= 60 mL/min >60 GFR >= 60 mL/min >60 9 1 100-125 mg/dL PRE-DIABET ES/FASTING >126 mg/dL DIABETES/FASTING 2 CHRONIC KIDNEY DISEASE STAGI NG PER NKF STAGE I & II GFR >= 60 NORMAL TO MILDLY DECREASED STAGE III GFR 30-59 MODERATELY DECREASED STAGE IV GFR 15-29 SEVERELY DECREASED STAGE V GFR <15 VERY LITTLE GFR LEFT ESRD GFR <15 ON EMS INSTRUCTOR 3 Units are mL/min/1.73 m2 Chronic Kidney Disease Staging per NKF: Stage I & II GFR >=60 Normal to Mildly Decreased Stage III GFR 30-59 Moderately Decreased Stage IV GFR 15-29 Severely Decreased Stage V GFR <15 Very Little GFR Left ESRD GFR <15 on EMS INSTRUCTOR 4 NOTE: RESULT VERIFIED. 5 100-125 mg/dL PRE-DIABET ES/FASTING >126 mg/dL DIABETES/FASTING 6 CHRONIC KIDNEY DISEASE STAGI NG PER NKF STAGE I & II GFR >= 60 NORMAL TO MILDLY DECREASED STAGE III GFR 30-59 MODERATELY DECREASED STAGE IV GFR 15-29 SEVERELY DECREASED STAGE V GFR <15 VERY LITTLE GFR LEFT ESRD GFR <15 ON EMS INSTRUCTOR 7 NOTE: CBC VERIFIED 8 100-125 mg/dL PRE-DIABET ES/FASTING >126 mg/dL DIABETES/FASTING 9 CHRONIC KIDNEY DISEASE STAGI NG PER NKF STAGE I & II GFR >= 60 NORMAL TO MILDLY DECREASED STAGE III GFR 30-59 MODERATELY DECREASED STAGE IV GFR 15-29 SEVERELY DECREASED STAGE V GFR <15 VERY LITTLE GFR LEFT ESRD GFR <15 ON EMS INSTRUCTOR Procedures Date Code Description Status 05/14/2021 39240 Chronic Care Management Services Ea Addl 20 Min Completed 05/14/2021 21902 Chronic Care MGMT 20 Mins Clinical Staff Time Per Calendar Month Completed 05/13/2021 68804 Office/Outpatient Established Mo d MDM 30-39 Min Completed 04/23/2021 68593 Singer Cre SRV W/I 7 Days Of DC, C omm W/I 2 Dys Med Rec Completed 04/11/2021 19378 Chronic Care MGMT 20 Mins Clinical Staff Time Per Calendar Month Completed 03/24/2021 43532 Chronic Care MGMT 20 Mins Clinical Staff Time Per Calendar Month Completed 03/24/2021 81897 Chronic Care Management Services Ea Addl 20 Min Completed 02/26/2021 [id number] Colonoscopy Completed 02/24/2021 66663 Complex Chronic Care Management SVC 1St 60 Min Completed 02/24/2021 08817 Complex Chronic Care MGMT Servic e Ea Addl 30 Min Completed 08/28/2015 [id number] Mammogram Completed 03/09/2014 [id number] Mammogram Completed 01/27/2012 [id number] Mammogram Completed 01/20/2012 [id number] Colonoscopy Completed 12/28/2011 [id number] Mammogram Completed 12/18/2011 [id number] Bone Mineral Density Test Comple zoila 12/18/2011 [id number] Mammogram Completed 12/16/2009 [id number] Bone Mineral Density Test Comple zoila 12/16/2009 [id number] Mammogram Completed Medical Devices Description No Information Available Encounters Type Date Location Provider Dx Diagnosis Office Visit [facility]/13[facility]21 [facility] J44.1 Chronic obstructive pulmonar y disease w (acute) exacerbation F41.9 Anxiety disorder, unspecifie d E87.6 Hypokalemia I10 Essential (primary) hyperten sukhdev G25.81 Restless legs syndrome J30.9 Allergic rhinitis, unspecifi ed M85.80 Oth disrd of bone density an d structure, unspecified site K21.9 Gastro-esophageal reflux dis ease without esophagitis E78.00 Pure hypercholesterolemia, u nspecified Office Visit 04/23/2021 1:15p [facility] Z87.891 Personal history of nicotine dependence J44.1 Chronic obstructive pulmonar y disease w (acute) exacerbation E87.6 Hypokalemia I10 Essential (primary) hyperten sukhdev G25.81 Restless legs syndrome J30.9 Allergic rhinitis, unspecifi ed M85.80 Oth disrd of bone density an d structure, unspecified site F41.9 Anxiety disorder, unspecifie d Assessments Date Code Description Provider 07/31/2021 J44.9 Chronic obstructive pulmonary di sease, unspecified Tammy Figueredo M.D. 07/31/2021 F41.9 Anxiety disorder, unspecified Elizabeth Figueredo M.D. 07/31/2021 E87.6 Hypokalemia Tammy chao M.D. 07/31/2021 I10 Essential (primary) hypertension Tammy Figueredo M.D. 07/31/2021 G25.81 Restless legs syndrome Tammy Figueredo M.D. 07/31/2021 J30.9 Allergic rhinitis, unspecified Perfecto Figueredo M.D. 07/31/2021 M85.80 Other specified diso rders of bone density and structure, unspecified site Tammy Figueredo M.D. 05/14/2021 J44.9 Chronic obstructive pulmonary di sease, unspecified Tammy Figueredo M.D. 05/14/2021 I10 Essential (primary) hypertension Tammy Figueredo M.D. 05/13/2021 J44.1 Chronic obstructive pulmonary disease with (acute) exacerbation Tammy Figueredo M.D. 05/13/2021 F41.9 Anxiety disorder, unspecified Elizabeth Figueredo M.D. 05/13/2021 E87.6 Hypokalemia Tammy chao M.D. 05/13/2021 I10 Essential (primary) hypertension Tammy Figueredo M.D. 05/13/2021 G25.81 Restless legs syndrome Tammy Figueredo M.D. 05/13/2021 J30.9 Allergic rhinitis, unspecified Perfecto Figueredo M.D. 05/13/2021 M85.80 Other specified diso rders of bone density and structure, unspecified site Tammy Figueredo M.D. 05/13/2021 K21.9 Gastro-esophageal reflux disease without esophagitis Tammy Figueredo M.D. 05/13/2021 E78.00 Pure hypercholesterolemia, unspe cified Tammy Figueredo M.D. 04/23/2021 Z87.891 Personal history of nicotine dep endence Tammy Figueredo M.D. 04/23/2021 J44.1 Chronic obstructive pulmonary disease with (acute) exacerbation Tammy Figueredo M.D. 04/23/2021 E87.6 Hypokalemia Tammy chao M.D. 04/23/2021 I10 Essential (primary) hypertension Tammy Figueredo M.D. 04/23/2021 G25.81 Restless legs syndrome Tammy Figueredo M.D. 04/23/2021 J30.9 Allergic rhinitis, unspecified J delmer Figueredo M.D. 04/23/2021 M85.80 Other specified diso rders of bone density and structure, unspecified site Tammy Figueredo M.D. 04/23/2021 F41.9 Anxiety disorder, unspecified Elizabeth Figueredo M.D. 04/11/2021 I10 Essential (primary) hypertension Tammy Figueredo M.D. 04/11/2021 J44.1 Chronic obstructive pulmonary disease with (acute) exacerbation Tammy Figueredo M.D. 04/11/2021 F41.9 Anxiety disorder, unspecified Elizabeth Figueredo M.D. 04/11/2021 G25.81 Restless legs syndrome Tammy Figueredo M.D. 03/24/2021 J44.9 Chronic obstructive pulmonary di sease, unspecified Tammy Figueredo M.D. 03/24/2021 I10 Essential (primary) hypertension Tammy Figueredo M.D. 03/24/2021 G25.81 Restless legs syndrome Tammy Figueredo M.D. 02/24/2021 I10 Essential (primary) hypertension Tammy Figueredo M.D. 02/24/2021 G25.81 Restless legs syndrome Tammy Figueredo M.D. 02/24/2021 J44.9 Chronic obstructive pulmonary di sease, unspecified Tammy Figueredo M.D. 02/24/2021 E78.00 Pure hypercholesterolemia, unspe cified Tammy Figueredo M.D. Plan of Treatment Future Appointment(s):* 11/04/2021 9:45 am - [facility] 07/31/2021 - Tammy Figueredo M.D.* J44.9 Chronic obstructive pulmonary disease, unspecified * F41.9 Anxiety disorder, unspecified * E87.6 Hypokalemia * I10 Essential (primary) hypertension * G25.81 Restless legs syndrome * J30.9 Allergic rhinitis, unspecified * M85.80 Other specified disorders of bone density and structure, unspecified site Functional Status Description No Information Available Mental Status Description No Information Available Referrals Refer to Dr Reason for Referral Status Appt Date Justino Novoa MD CONSULT FOR COPD Patient Notified [address] [place] [address] [address] [facility] [address] [phone] Wes Nolan MD CONSULT FOR SCREENING COLONOSCOPY Patien t Notified 02/11/2021 [address] [facility] [address] [phone]
--- OUTSIDE RECORDS SUMMARY | 2021-09-12 08:45 | CCD | Continuity of Care Document ---
Author Author Zakiya Figueredo M.D. Organization Unknown Address [address] [facility] [address] [place] [address] Phone [phone] Care Team Providers Care High Worker Name Role Phone Leslie Pinoian AURA AUTM [phone] Tammy Figueredo MD AUTM [phone] [facility] AUTM [phone] Problems Active Problems Provider Date Asthma without [...] Qnty Indications Ordering Provide r Date Nystatin 628620Lnnc/ML Suspension Swish And Swallow Five Milliliters By [...] Mouth Four Times Daily as Needed 17units Tamym Figueredo M.D. 11/08/2012 Albuterol Sulfate (2 .5mg/3ML) [...] Of Flu Vaccine Inj ection Amanda Pino PRODUCT GRADER 08/08/2020 Administration Of Flu Vaccine Inj ection Joanie Coffey FNP 09/19/2019 Administration Of Flu Vaccine Inj ection Joanie Coffey FNP 08/11/2018 Administration Of Flu Vaccine Inj ection Joanie Coffey,AURA 07/30/2017 Administration Of Flu Vaccine Inj ection Joanie Coffey FNP 09/03/2015 Administration Of Flu Vaccine Inj Joanie Khanna,PRODUCT GRADER 10/22/2011 Immunizations CPT Code Status Date Vaccine Lot # [id number] Given 07/31/2021 Influenza Vaccin e Quadrivalent Preser/Antibiotic Free Im Use 978239 91715 Given 08/08/2020 Influenza Vaccin e Quadrivalent Preser/Antibiotic Free Im Use 219208 34780 Given 09/19/2019 Influenza Vaccin e Quadrivalent Preser/Antibiotic Free Im Use 900475 39487 Given 08/11/2018 Influenza Virus Vaccine, Quadrivalent ([id number]), Derived From 7 Given 07/30/2017 Influenza Vaccin e Quadrivalent Preser/Antibiotic Free Im Use [id number] 23633 Given 12/02/2016 Prevnar 13 Q2037 Given 09/03/2015 Fluvirin Virus Vaccine 47156 01 80948 Given 01/07/2015 Pneumovax 23 [id number] Q2037 Given 10/22/2011 Fluvirin Virus Vaccine Vital [...] H/L Range Note Laboratory test finding 07/31/2021 [facility] [address] [place] [address] [phone] Ferritin 21 NG/ML Normal 8-252 Complete Blood Count 07/31/2021 [place] [facility] Superintendent Compressor Stations: [place] [address] [phone] WBC 9.6 x10*3/UL 4.1 - 10.9 RBC [...] 2.0 - 7.8 Laboratory test finding 07/31/2021 [place] [employer] Machine Mechan[employer] kaya barry Superintendent Compressor Stations: [place] [address] [phone] Magnesium 1.8 mg/dL 1.8 - 2.4 Basic Metabolic Panel 07/31/2021 [place] kaya Vega Superintendent Compressor Stations: Dr Peewee Bolivar [place], [place] [id number] [phone] Glucose 89 mg/dL 74 - 99 1 [...] mL/min >60 2 Laboratory test finding 07/31/2021 [place] [employer] kaya barry Superintendent Compressor Stations: [place] [address] [phone] Thyroid Stimulating Hormone 1.17 uIU/mL 0.3 6 - 3.74 Basic Metabolic Profile 05/28/2021 [facility] [address] [place] [address] [phone] Glucose, Fasting 97 mg/dL Normal 70-100 Blood [...] mg/dL Normal 8.8-10.2 Complete Blood Count 05/13/2021 [place] [facility] kaya freeman Superintendent Compressor Stations: [place] [address] [phone] WBC 13.4 x10*3/UL High 4.1 - 10.9 [...] 2.0 - 7.8 Comprehensive Chem Profile 05/13/2021 [place] [facility]aya lion Superintendent Compressor Stations: [place] [address] [phone] Glucose 88 mg/dL 74 - 99 5 [...] mL/min >60 6 Complete Blood Count 04/23/2021 [place] [facility] Superintendent Compressor Stations: [place] [address] [phone] WBC 18.7 x10*3/UL High 4.1 - 10.9 [...] 2.0 - 7.8 Basic Metabolic Panel 04/23/2021 [facility] [place] [facility] Superintendent Compressor Stations: Dr Peewe[place] [address] [phone] Glucose 91 mg/dL 74 - 99 8 [...] LITTLE GFR LEFT ESRD GFR <15 ON PLATE CUTTER 3 Units are mL/min/1.73 m2 Chronic Kidney Disease Staging per NKF: Stage I & II GFR >=60 Normal to Mildly Decreased Stage III GFR 30-59 Moderately Decreased Stage IV GFR 15-29 Severely Decreased Stage V GFR <15 Very Little GFR Left ESRD GFR <15 on PLATE CUTTER 4 NOTE: RESULT VERIFIED. 5 100-125 mg/dL PRE-DIABET ES/FASTING >126 mg/dL DIABETES/FASTING 6 CHRONIC KIDNEY DISEASE STAGI NG PER NKF STAGE I & II GFR >= 60 NORMAL TO MILDLY DECREASED STAGE III GFR 30-59 MODERATELY DECREASED STAGE IV GFR 15-29 SEVERELY DECREASED STAGE V GFR <15 VERY LITTLE GFR LEFT ESRD GFR <15 ON PLATE CUTTER 7 NOTE: CBC VERIFIED 8 100-125 mg/dL PRE-DIABET ES/FASTING >126 mg/dL DIABETES/FASTING 9 CHRONIC KIDNEY DISEASE STAGI NG PER NKF STAGE I & II GFR >= 60 NORMAL TO MILDLY DECREASED STAGE III GFR 30-59 MODERATELY DECREASED STAGE IV GFR 15-29 SEVERELY DECREASED STAGE V GFR <15 VERY LITTLE GFR LEFT ESRD GFR <15 ON PLATE CUTTER Procedures Date Code Description Status 05/14/2021 66940 Chronic Care Management Services Ea Addl 20 Min Completed 05/14/2021 77689 Chronic Care MGMT 20 Mins Clinical Staff Time Per Calendar Month Completed 05/13/2021 82508 Office/Outpatient Established Mo d MDM 30-39 Min Completed 04/23/2021 79811 [facility] SRV W/I 7 Days Of DC, C omm W/I 2 Dys Med Rec Completed 04/11/2021 46430 Chronic Care MGMT 20 Mins Clinical Staff Time Per Calendar Month Completed 03/24/2021 68828 Chronic Care MGMT 20 Mins Clinical Staff Time Per Calendar Month Completed 03/24/2021 67211 Chronic Care Management Services Ea Addl 20 Min Completed 02/26/2021 [id number] Colonoscopy Completed 02/24/2021 91427 Complex Chronic Care Management SVC 1St 60 Min Completed 02/24/2021 59880 Complex Chronic Care MGMT Servic e Ea Addl 30 Min Completed 08/28/2015 [id number] Mammogram Completed 03/09/2014 [id number] Mammogram Completed 01/27/2012 [id number] Mammogram Completed 01/20/2012 [id number] Colonoscopy Completed 12/28/2011 [id number] Mammogram Completed 12/18/2011 [id number] Bone Mineral Density Test Comple zoila 12/18/2011 [id number] Mammogram Completed 12/16/2009 [id number] Bone Mineral Density Test Comple zoila 12/16/2009 [id number] Mammogram Completed Medical Devices Description No Information Available Encounters Type Date Location Provider Dx Diagnosis Office Visit 05/13/2021 11:30a [facility] J44.1 Chronic obstructive pulmonar y disease w (acute) exacerbation F41.9 Anxiety disorder, unspecifie d E87.6 Hypokalemia I10 Essential (primary) hyperten sukhdev G25.81 Restless legs syndrome J30.9 Allergic rhinitis, unspecifi ed M85.80 Oth disrd of bone density an d structure, unspecified site K21.9 Gastro-esophageal reflux dis ease without esophagitis E78.00 Pure hypercholesterolemia, u nspecified Office Visit 04/23/2021 1:15p [place] [facility] M[facility] Z87.891 Personal history of [...] 9:45 am - [facility] [place] [facility] 07/31/2021 - Tammy Figueredo M.D.* J44.9 [...] Novoa MD CONSULT FOR COPD Patient Notified [address] [place] [address] [address] [facility] [address] [phone] Wes Nolan MD CONSULT FOR SCREENING COLONOSCOPY Patien t Notified 02/11/2021 [address] [facility] [address] [phone]
--- OUTSIDE RECORDS SUMMARY | 2021-09-12 08:45 | CCD | Continuity of Care Document ---
Author Author Zakiya Figueredo M.D. Organization Unknown Address [address] [facility] [address] [place] [address] Phone [phone] Care Team Providers Care Liquor Inspector Name Role Phone eLslie Pinoian AURA AUTM [phone] Tammy Figueredo MD AUTM [phone] [facility] AUTM [phone] Problems Active Problems Provider Date Asthma without [...] day for 60 years, quitting in 2011 Allergies and adverse reactions Description No Known Drug Allergies Medications Active Medications SIG Qnty Indications Ordering Provide r Date Senna 8.6mg Tablets as needed Tammy Figueredo M.D. 08/01/2021 Ferrous Sulfate 324(65Fe) mg Table ts DR 1 by mouth every other day 45tabs Tammy Figueredo M.D. 08/01/2021 Nystatin 158608Xmyk/ML Suspension Swish And Swallow Five Milliliters By [...] J45.9 98 Tammy Figueredo M.D. 06/05/2016 Nebulizer Misc use as directed dxj44.9 1units Tammy Figueredo M.D. 01/21/2016 Nebulizer Kit/Tubing/Mouthpiece K it use as directed 1unnayeli Figueredo M.D. 01/21/20 16 Vitamin D 2000Unit Tablets 2 by mouth every day Joanie Coffey FNP 09/05/2015 Calcium + D Tablets 2 po qd Joanie Coffey FNP 11/08/2012 Simvastatin 20mg Tablets Take One Tablet By Mouth @8PM 30tamike Figueredo M.D. 11/08/19 13 Proair HFA 108(90Base) mcg/Act Aer osol Inhale Two Puffs By Mouth Four Times Daily as Needed 17unnayeli Figueredo M.D. 11/08/2012 Albuterol Sulfate (2 .5mg/3ML) [...] Provider Date Administration Of Flu Vaccine Inj bobby Figueredo M.D. 07/31/20 21 Administration Of Flu Vaccine Inj ection AURA Panda 08/08/2020 Administration Of Flu Vaccine Inj ection Joanie Coffey FNP 09/19/2019 Administration Of Flu Vaccine Inj ection Joanie Coffey,TEAM COORDINATOR 08/11/2018 Administration Of Flu Vaccine Inj ection Joanie Coffey,TEAM COORDINATOR 07/30/2017 Administration Of Flu Vaccine Inj ection Jonaie Coffey,TEAM COORDINATOR 09/03/2015 Administration Of Flu Vaccine Inj ection Joanie Coffey,TEAM COORDINATOR 10/22/2011 Immunizations CPT Code Status Date Vaccine Lot # [id number] Given 07/31/2021 Influenza Vaccin e Quadrivalent Preser/Antibiotic Free Im Use [id number] 68349 Given 08/08/2020 Influenza Vaccin e Quadrivalent Preser/Antibiotic Free Im Use [id number] 10034 Given 09/19/2019 Influenza Vaccin e Quadrivalent Preser/Antibiotic Free Im Use 270997 51617 Given 08/11/2018 Influenza Virus Vaccine, Quadrivalent (Cciiv4), Derived From 0 Given 07/30/2017 Influenza Vaccin e Quadrivalent Preser/Antibiotic Free Im Use 600341 15956 Given 12/02/2016 Prevnar 13 Q2037 Given 09/03/2015 Fluvirin Virus Vaccine 92796 01 45165 Given 01/07/2015 Pneumovax 23 [id number] Q2037 Given 10/22/2011 Fluvirin Virus Vaccine Vital [...] H/L Range Note Laboratory test finding 07/31/2021 [facility] [address] [place], [place] [address] [phone] Ferritin 21 NG/ML Normal 8-252 Complete Blood Count 07/31/2021 [place] [facility] Gusset Maker: [place] [address] [phone] WBC 9.6 x10*3/UL 4.1 - 10.9 RBC [...] 2.0 - 7.8 Laboratory test finding 07/31/2021 [facility], Gusset Maker: Dr Peewee [place] [address] [phone] Magnesium 1.8 mg/dL 1.8 - 2.4 Basic Metabolic Panel 07/31/2021 [facility] Gusset Maker: Dr Peewee [place] [address] [phone] Glucose 89 mg/dL 74 - 99 1 [...] mL/min >60 2 Laboratory test finding 07/31/2021 [place] [employer] [facility]hinav, Gusset Maker: Dr Peewee [place] [address] [phone] Thyroid Stimulating Hormone 1.17 uIU/mL 0.3 6 - 3.74 Basic Metabolic Profile 05/28/2021 [facility] [address] [place] [address] [phone] Glucose, Fasting 97 mg/dL Normal 70-100 Blood [...] mg/dL Normal 8.8-10.2 Complete Blood Count 05/13/2021 [place] [facility] Gusset Maker: [place] [address] [phone] WBC 13.4 x10*3/UL High 4.1 - 10.9 [...] 2.0 - 7.8 Comprehensive Chem Profile 05/13/2021 [place] kaya Dang Gusset Maker: [place] [address] [phone] Glucose 88 mg/dL 74 - 99 5 [...] mL/min >60 6 Complete Blood Count 04/23/2021 [facility] [facility] Gusset Maker: Dr Peewee Bolivar [place], [place] [address] [phone] WBC 18.7 x10*3/UL High 4.1 - 10.9 [...] 2.0 - 7.8 Basic Metabolic Panel 04/23/2021 [facility] Gusset Maker: [place] [address] [phone] Glucose 91 mg/dL 74 - 99 8 [...] LITTLE GFR LEFT ESRD GFR <15 ON MAINTENANCE MECHANIC ELEVATORS 3 Units are mL/min/1.73 m2 Chronic Kidney Disease Staging per NKF: Stage I & II GFR >=60 Normal to Mildly Decreased Stage III GFR 30-59 Moderately Decreased Stage IV GFR 15-29 Severely Decreased Stage V GFR <15 Very Little GFR Left ESRD GFR <15 on MAINTENANCE MECHANIC ELEVATORS 4 NOTE: RESULT VERIFIED. 5 100-125 mg/dL PRE-DIABET ES/FASTING >126 mg/dL DIABETES/FASTING 6 CHRONIC KIDNEY DISEASE STAGI NG PER NKF STAGE I & II GFR >= 60 NORMAL TO MILDLY DECREASED STAGE III GFR 30-59 MODERATELY DECREASED STAGE IV GFR 15-29 SEVERELY DECREASED STAGE V GFR <15 VERY LITTLE GFR LEFT ESRD GFR <15 ON MAINTENANCE MECHANIC ELEVATORS 7 NOTE: CBC VERIFIED 8 100-125 mg/dL PRE-DIABET ES/FASTING >126 mg/dL DIABETES/FASTING 9 CHRONIC KIDNEY DISEASE STAGI NG PER NKF STAGE I & II GFR >= 60 NORMAL TO MILDLY DECREASED STAGE III GFR 30-59 MODERATELY DECREASED STAGE IV GFR 15-29 SEVERELY DECREASED STAGE V GFR <15 VERY LITTLE GFR LEFT ESRD GFR <15 ON MAINTENANCE MECHANIC ELEVATORS Procedures Date Code Description Status 07/31/2021 00267 Office/Outpatient Established Mo d MDM 30-39 Min Completed 05/14/2021 96723 Chronic Care MGMT 20 Mins Clinical Staff Time Per Calendar Month Completed 05/14/2021 39342 Chronic Care Management Services Ea Addl 20 Min Completed 05/13/2021 85889 Office/Outpatient Established Mo d MDM 30-39 Min Completed 04/23/2021 22545 [facility] [employer] SRV W/I 7 Days Of DC, C omm W/I 2 Dys Med Rec Completed 04/11/2021 40343 Chronic Care MGMT 20 Mins Clinical Staff Time Per Calendar Month Completed 03/24/2021 13483 Chronic Care MGMT 20 Mins Clinical Staff Time Per Calendar Month Completed 03/24/2021 18352 Chronic Care Management Services Ea Addl 20 Min Completed 02/26/2021 [id number] Colonoscopy Completed 02/24/2021 95059 Complex Chronic Care Management SVC 1St 60 Min Completed 02/24/2021 24855 Complex Chronic Care MGMT Servic e Ea Addl 30 Min Completed 08/28/2015 [id number] Mammogram Completed 03/09/2014 [id number] Mammogram Completed 01/27/2012 [id number] Mammogram Completed 01/20/2012 [id number] Colonoscopy Completed 12/28/2011 [id number] Mammogram Completed 12/18/2011 [id number] Bone Mineral Density Test [facility] 12/18/2011 [id number] Mammogram Completed 12/16/2009 [id number] Bone Mineral Density Test [facility] 12/16/2009 [id number] Mammogram Completed Medical Devices Description No Information Available Encounters Type Date Location Provider Dx Diagnosis Office Visit 07/31/2021 9:30a [place] [facility] M.[facility] J44.9 Chronic obstructive pulmonar y disease, unspecified F41.9 Anxiety disorder, unspecifie d E87.6 Hypokalemia I10 Essential (primary) hyperten sukhdev G25.81 Restless legs syndrome J30.9 Allergic rhinitis, unspecifi ed M85.80 Oth disrd of bone density an d structure, unspecified site Z23 Encounter for immunization Office Visit 05/13/2021 11:30a [place] [facility] M.D. J44.1 Chronic obstructive pulmonar y disease w (acute) exacerbation F41.9 Anxiety disorder, unspecifie d E87.6 Hypokalemia I10 Essential (primary) hyperten sukhdev G25.81 Restless legs syndrome J30.9 Allergic rhinitis, unspecifi ed M85.80 Oth disrd of bone density an d structure, unspecified site K21.9 Gastro-esophageal reflux dis ease without esophagitis E78.00 Pure hypercholesterolemia, u nspecified Office Visit 04/23/2021 1:15p [facility] Britton Figueredo M.D. Z87.891 Personal history of nicotine dependence [...] and structure, unspecified site Tammy Figueredo M.D. 07/31/2021 Z23 Encounter for immunization Tammy Figueredo M.D. 05/14/2021 J44.9 Chronic obstructive pulmonary di sease, unspecified Tammy Figueredo M.D. 05/14/2021 I10 Essential (primary) hypertension Tammy Figueredo M.D. 05/13/2021 J44.1 Chronic obstructive pulmonary disease with (acute) exacerbation aTmmy Figueredo M.D. 05/13/2021 F41.9 Anxiety disorder, unspecified [...] Figueredo M.D. 04/23/2021 J30.9 Allergic rhinitis, unspecified Perfecto Figueredo M.D. 04/23/2021 M85.80 Other specified diso [...] 9:45 am - Tam[facility] at [facility] 07/31/2021 - Tammy Figueredo M.D.* J44.9 Chronic obstructive pulmonary disease, unspecified * F41.9 Anxiety disorder, unspecified * E87.6 Hypokalemia * I10 Essential (primary) hypertension * G25.81 Restless legs syndrome * J30.9 Allergic rhinitis, unspecified * M85.80 Other specified disorders of bone density and structure, unspecified site * Z23 Encounter for immunization * All * Comments:* 8. GERD. Controlled on the Omeprazole. She has not needed the Zofran9. Health Maintenance. Long discussion regarding COVID vaccine. She appears interested her granddaughter accompanies her they will get her scheduled for COVID MRNA Pfizer or Moderna vaccine. Flu shot was given today. Functional Status Description No Information Available Mental Status Description No Information Available Referrals Refer to Dr Reason for Referral Status Appt Date Justino Novoa MD CONSULT FOR COPD Patient Notified [address] [place] [id number] [place] [address] [facility] [address] [phone] Wes Nolan MD CONSULT FOR SCREENING COLONOSCOPY Louise coyne Notified 02/11/[address] [facility] [address] [phone]
--- OUTSIDE RECORDS SUMMARY | 2021-09-12 08:46 | CCD ---
Author Author [facility] Organization [facility] Address Unknown Phone Unavailable Care Team Providers Care Twill Cutter Name Role Phone Chelita Nolan MD Unavailable Unavailable Chelita Nolan MD Unavailable Unavailable Chelita Nolan MD Unavailable Unavailable Chelita Nolan MD Unavailable Unavailable Chelita Nolan MD Unavailable Unavailable Chelita Nolan MD Unavailable Unavailable Chelita Nolan MD Unavailable Unavailable Chelita Nolan MD Unavailable Unavailable Chelita Nolan MD Unavailable Unavailable Chelita Nolan MD Unavailable Unavailable Chelita Nolan MD Unavailable Unavailable Chelita Nolan MD Unavailable Unavailable Chelita Nolan MD Unavailable Unavailable Chelita Nolan MD Unavailable Unavailable Chelita Nolan MD Unavailable Unavailable Chelita Nolan MD Unavailable Unavailable Chelita Nolan MD Unavailable Unavailable Chelita Nolan MD Unavailable Unavailable Chelita Nolan MD Unavailable Unavailable Chelita Nolan MD Unavailable Unavailable Chelita Nolan MD Unavailable Unavailable Chelita Nolan MD Unavailable Unavailable Chelita Nolan MD Unavailable Unavailable Chelita Nolan MD Unavailable Unavailable Chelita Nolan MD Unavailable Unavailable Chelita Nolan MD Unavailable Unavailable Chelita Nolan MD Unavailable Unavailable Chelita Nolan MD Unavailable Unavailable Chelita Nolan MD Unavailable Unavailable Chelita Nolan MD Unavailable Unavailable Chelita Nolan MD Unavailable Unavailable Chelita Nolan MD Unavailable Unavailable Chelita Nolan MD Unavailable Unavailable Chelita Nolan MD Unavailable Unavailable Chelita Nolan MD Unavailable Unavailable Chelita Nolan MD Unavailable Unavailable Chelita Nolan MD Unavailable Unavailable Chelita Nolan MD Unavailable Unavailable Chelita Nolan MD Unavailable Unavailable Chelita Nolan MD Unavailable Unavailable Ovidio, Chelita Harvey MD Unavailable Unavailable Chelita Nolan MD Unavailable Unavailable Chelita Nolan MD Unavailable Unavailable Chelita Nolan MD Unavailable Unavailable Chelita Nolan MD Unavailable Unavailable Chelita Nolan MD Unavailable Unavailable Chelita Nolan MD Unavailable Unavailable Chelita Nolan MD Unavailable Unavailable Chelita Nolan MD Unavailable Unavailable Chelita Nolan MD Unavailable Unavailable Alvarez, Amanda MEDICAL RECORD RETRIEVAL SPECIALIST Unavailable Unavailable Alvarez, Amanda MEDICAL RECORD RETRIEVAL SPECIALIST Unavailable Unavailable Alvarez, Amanda MEDICAL RECORD RETRIEVAL SPECIALIST Unavailable Unavailable Alvarez, Amanda MEDICAL RECORD RETRIEVAL SPECIALIST Unavailable Unavailable Alvarez, Amanda MEDICAL RECORD RETRIEVAL SPECIALIST Unavailable Unavailable Alvarez, Amanda MEDICAL RECORD RETRIEVAL SPECIALIST Unavailable Unavailable Alvarez, Amanda MEDICAL RECORD RETRIEVAL SPECIALIST Unavailable Unavailable Alvarez, Amanda MEDICAL RECORD RETRIEVAL SPECIALIST Unavailable Unavailable Alvarez, Amanda MEDICAL RECORD RETRIEVAL SPECIALIST Unavailable Unavailable Alvarez, Amanda MEDICAL RECORD RETRIEVAL SPECIALIST Unavailable Unavailable Alvarez, Amanda MEDICAL RECORD RETRIEVAL SPECIALIST Unavailable Unavailable Alvarez, Amanda MEDICAL RECORD RETRIEVAL SPECIALIST Unavailable Unavailable Alvarez, Amanda MEDICAL RECORD RETRIEVAL SPECIALIST Unavailable Unavailable Alvarez, Amanda MEDICAL RECORD RETRIEVAL SPECIALIST Unavailable Unavailable Alvarez, Amanda MEDICAL RECORD RETRIEVAL SPECIALIST Unavailable Unavailable Alvarez, Amanda MEDICAL RECORD RETRIEVAL SPECIALIST Unavailable Unavailable Alvarez, Amanda MEDICAL RECORD RETRIEVAL SPECIALIST Unavailable Unavailable Alvarez, Amanda MEDICAL RECORD RETRIEVAL SPECIALIST Unavailable Unavailable Alvarez, Amanda MEDICAL RECORD RETRIEVAL SPECIALIST Unavailable Unavailable Alvarez, Amanda MEDICAL RECORD RETRIEVAL SPECIALIST Unavailable Unavailable Alvarez, Amanda MEDICAL RECORD RETRIEVAL SPECIALIST Unavailable Unavailable Alvarez, Amanda MEDICAL RECORD RETRIEVAL SPECIALIST Unavailable Unavailable Alvarez, Amanda MEDICAL RECORD RETRIEVAL SPECIALIST Unavailable Unavailable Alvarez, Amanda MEDICAL RECORD RETRIEVAL SPECIALIST Unavailable Unavailable Alvarez, Amanda MEDICAL RECORD RETRIEVAL SPECIALIST Unavailable Unavailable Alvarez, Amanda MEDICAL RECORD RETRIEVAL SPECIALIST Unavailable Unavailable Alvarez, Amanda MEDICAL RECORD RETRIEVAL SPECIALIST Unavailable Unavailable Alvarez, Amanda MEDICAL RECORD RETRIEVAL SPECIALIST Unavailable Unavailable Alvarez, Amanda MEDICAL RECORD RETRIEVAL SPECIALIST Unavailable Unavailable Alvarez, Amanda MEDICAL RECORD RETRIEVAL SPECIALIST Unavailable Unavailable Alvarez, Amanda MEDICAL RECORD RETRIEVAL SPECIALIST Unavailable Unavailable Alvarez, Amanda MEDICAL RECORD RETRIEVAL SPECIALIST Unavailable Unavailable Alvarez, Amanda MEDICAL RECORD RETRIEVAL SPECIALIST Unavailable Unavailable Alvarez, Amanda MEDICAL RECORD RETRIEVAL SPECIALIST Unavailable Unavailable Alvarez, Amanda MEDICAL RECORD RETRIEVAL SPECIALIST Unavailable Unavailable BeaAdina longoria MD Unavailable Unavailable BeaAdina chao MD Unavailable Unavailable BeaAdina MD Unavailable Unavailable BeaAdina chao MD Unavailable Unavailable BeaAdina MD Unavailable Unavailable Adina Figueredo MD Unavailable Unavailable BeaAdina chao MD Unavailable Unavailable BeaAdina chao MD Unavailable Unavailable BeaAdina chao MD Unavailable Unavailable BeaAdina chao MD Unavailable Unavailable BeaAdina chao MD Unavailable Unavailable Adina Figueredo MD Unavailable Unavailable BeaAdina chao MD Unavailable Unavailable BeaAdina chao MD Unavailable Unavailable BeaAdina chao MD Unavailable Unavailable Adina Figueredo MD Unavailable Unavailable Adina Figueredo MD Unavailable Unavailable Adina Figueredo MD Unavailable Unavailable Adina Figueredo MD Unavailable Unavailable Adina Figueredo MD Unavailable Unavailable Adina Figueredo MD Unavailable Unavailable Adina Figueredo MD Unavailable Unavailable Adina Figueredo MD Unavailable Unavailable Adina Figueredo MD Unavailable Unavailable Adina Figueredo MD Unavailable Unavailable Adina Figueredo MD Unavailable Unavailable Adina Figueredo MD Unavailable Unavailable Adina Figueredo MD Unavailable Unavailable Adina Figueredo MD Unavailable Unavailable Adina Figueredo MD Unavailable Unavailable Adina Figueredo MD Unavailable Unavailable Adina Figueredo MD Unavailable Unavailable Adina Figueredo MD Unavailable Unavailable Adina Figueredo MD Unavailable Unavailable Adina Figueredo MD Unavailable Unavailable Adina Figueredo MD Unavailable Unavailable Adina Figueredo MD Unavailable Unavailable Adina Figueredo MD Unavailable Unavailable Adina Figueredo MD Unavailable Unavailable Adina Figueredo MD Unavailable Unavailable Adina Figueredo MD Unavailable Unavailable Adina Figueredo MD Unavailable Unavailable Adina Figueredo MD Unavailable Unavailable Adina Figueredo MD Unavailable Unavailable Adina Figueredo MD Unavailable Unavailable Adina Figueredo MD Unavailable Unavailable Adina Figueredo MD Unavailable Unavailable Adina Figueredo MD Unavailable Unavailable Bea, M Tammy MD Unavailable Unavailable Adina Figueredo MD Unavailable Unavailable Adina Figueredo MD Unavailable Unavailable Adina Figueredo MD Unavailable Unavailable Adina Figueredo MD Unavailable Unavailable Adina Figueredo MD Unavailable Unavailable Adina Figueredo MD Unavailable Unavailable Adnia Figueredo MD Unavailable Unavailable Adina Figueredo MD Unavailable Unavailable Adina Figueredo MD Unavailable Unavailable Adina Figueredo MD Unavailable Unavailable Adina Figueredo MD Unavailable Unavailable Adina Figueredo MD Unavailable Unavailable Adina Figueredo MD Unavailable Unavailable Adina Figueredo MD Unavailable Unavailable Adina Figueredo MD Unavailable Unavailable Adina Figueredo MD Unavailable Unavailable Adina Figueredo MD Unavailable Unavailable Adina Figueredo MD Unavailable Unavailable Adina Figueredo MD Unavailable Unavailable Adina Figueredo MD Unavailable Unavailable Adina Figueredo MD Unavailable Unavailable Adina Figueredo MD Unavailable Unavailable Adina Figueredo MD Unavailable Unavailable Adina Figueredo MD Unavailable Unavailable Adina Figueredo MD Unavailable Unavailable Adina Figueredo MD Unavailable Unavailable Adina Figueredo MD Unavailable Unavailable Adina Figueredo MD Unavailable Unavailable Adina Figueredo MD Unavailable Unavailable Adina Figueredo MD Unavailable Unavailable Adina Figueredo MD Unavailable Unavailable Adina Figueredo MD Unavailable Unavailable Adina Figueredo MD Unavailable Unavailable Adina Figueredo MD Unavailable Unavailable Adina Figueredo MD Unavailable Unavailable ROBERTA, FRANCESCO PA Unavailable Unavailable ROBERTA, FRANCESCO PA Unavailable Unavailable ROBERTA, FRANCESCO PA Unavailable Unavailable ROBERTA, FRANCESCO PA Unavailable Unavailable ROBERTA, FRANCESCO PA Unavailable Unavailable ROBERTA, FRANCSECO PA Unavailable Unavailable ROBERTA, FRANCESCO PA Unavailable Unavailable ROBERTA, FRANCESCO PA Unavailable Unavailable ROBERTA, FRANCESCO PA Unavailable Unavailable ROBERTA, FRANCESCO PA Unavailable Unavailable ROBERTA, FRANCESCO PA Unavailable Unavailable ROBERTA, FRANCESCO PA Unavailable Unavailable ROBERTA, FRANCESCO PA Unavailable Unavailable ROBERTA, FRANCESCO PA Unavailable Unavailable ROBERTA, FRANCESCO PA Unavailable Unavailable ROBERTA, FRANCESCO PA Unavailable Unavailable ROBERTA, FRANCESCO PA Unavailable Unavailable ROBERTA, FRANCESCO PA Unavailable Unavailable ROBERTA, FRANCESCO PA Unavailable Unavailable ROBERTA, FRANCESCO PA Unavailable Unavailable ROBERTA, FRANCESCO PA Unavailable Unavailable ROBERTA, FRANCESCO PA Unavailable Unavailable ROBERTA, FRANCESCO PA Unavailable Unavailable ROBERTA, FRANCESCO PA Unavailable Unavailable ROBERTA, FRANCESCO PA Unavailable Unavailable ROBERTA, FRANCESCO PA Unavailable Unavailable ROBERTA, FRANCESCO PA Unavailable Unavailable ROBERTA, FRANCESCO PA Unavailable Unavailable ROBERTA, FRANCESCO PA Unavailable Unavailable ROBERTA, FRANCESCO PA Unavailable Unavailable ROBERTA, FRANCESCO PA Unavailable Unavailable ROBERTA, FRANCESCO PA Unavailable Unavailable ROBERTA, FRANCESCO PA Unavailable Unavailable ROBERTA, FRANCESCO PA Unavailable Unavailable ROBERTA, FRANCESCO PA Unavailable Unavailable ROBERTA, FRANCESCO PA Unavailable Unavailable Angel Novoa MD Unavailable Unavailable Angel Novoa MD Unavailable Unavailable Angel Novoa MD Unavailable Unavailable Angle Novoa MD Unavailable Unavailable Angel Novoa MD Unavailable Unavailable Angel Novoa MD Unavailable Unavailable Angel Novoa MD Unavailable Unavailable Angel Novoa MD Unavailable Unavailable Angel Novoa MD Unavailable Unavailable Angel Novoa MD Unavailable Unavailable Angel Novoa MD Unavailable Unavailable Angel Novoa MD Unavailable Unavailable Angel Novoa MD Unavailable Unavailable Angel Novoa MD Unavailable Unavailable Angel Novoa MD Unavailable Unavailable Angel Novoa MD Unavailable Unavailable Angel Novoa MD Unavailable Unavailable Angel Novoa MD Unavailable Unavailable Angel Novoa MD Unavailable Unavailable Angel Novoa MD Unavailable Unavailable Angel Novoa MD Unavailable Unavailable Angel Novoa MD Unavailable Unavailable Angel Novoa MD Unavailable Unavailable Angel Novoa MD Unavailable Unavailable Angel Novoa MD Unavailable Unavailable Angel Novoa MD Unavailable Unavailable Angel Novoa MD Unavailable Unavailable Angel Novoa MD Unavailable Unavailable Angel Novoa MD Unavailable Unavailable Angel Novoa MD Unavailable Unavailable Angel Novoa MD Unavailable Unavailable Angel Novoa MD Unavailable Unavailable Angel Novoa MD Unavailable Unavailable Angel Novoa MD Unavailable Unavailable Angel Novoa MD Unavailable Unavailable Angel Novoa MD Unavailable Unavailable Angel Novoa MD Unavailable Unavailable Angel Novoa MD Unavailable Unavailable Angel Novoa MD Unavailable Unavailable Angel Novoa MD Unavailable Unavailable Angel Novoa MD Unavailable Unavailable Angel Novoa MD Unavailable Unavailable Angel Novoa MD Unavailable Unavailable Angel Novoa MD Unavailable Unavailable Angel Novoa MD Unavailable Unavailable Novoa, Angel Justino LOBATO Unavailable Unavailable Novoa, Angel Justino LOBATO Unavailable Unavailable Novoa, Angel Justino MD Unavailable Unavailable Novoa, Angel Justino MD Unavailable Unavailable Novoa, Angel Justino MD Unavailable Unavailable Novoa, Angel Justino MD Unavailable Unavailable Novoa, Angel Justino MD Unavailable Unavailable Novoa, nAgel Justino MD Unavailable Unavailable Novoa, Angel Justino MD Unavailable Unavailable Re-disclosure Warning The records that you are about to access may contain information from federally-assisted alcohol or drug abuse programs. If such information is present, then the following federally mandated warning applies: This information has been disclosed to you from records protected by federal confidentiality rules (42 CFR part 2). The federal rules prohibit you from making any further disclosure of this information unless further disclosure is expressly permitted by the written consent of the person to whom it pertains or as otherwise permitted by 42 CFR part 2. A general authorization for the release of medical or other information is NOT sufficient for this purpose. The Federal rules restrict any use of the information to criminally investigate or prosecute any alcohol or drug abuse patient.The records that you are about to access may contain highly sensitive health information, the redisclosure of which is protected by Article 27-F of the [facility] Public Health law. If you continue you may have access to information: Regarding HIV / AIDS; Provided by facilities licensed or operated by the [facility] Office of Mental Health; or Provided by the [facility] Office for People With Developmental Disabilities. If such information is present, then the following [facility] mandated warning applies: This information has been disclosed to you from confidential records which are protected by state law. State law prohibits you from making any further disclosure of this information without the specific written consent of the person to whom it pertains, or as otherwise permitted by law. Any unauthorized further disclosure in violation of state law may result in a fine or usp sentence or both. A general authorization for the release of medical or other information is NOT sufficient authorization for further disc losure. Family History Family Member Name Family Member Gender Family Member Status Date o f Status Description Data Source(s) Unknown Unknown Encounters Encounter Providers Location Date Indications Data Source(s ) Outpatient Attender: Tammy Lopez 09:30:00 AM EDT [facility] ([facility] ) Outpatient Attender: Tammy Lopez 11:30:00 AM EDT [facility] ([facility] ) Outpatient Attender: Justino Saab/Mauro/Mary haywood 05/03/2021 01:23:00 AM EDT [facility] ([facility]) Outpatient Attender: Tammy Lopez 01:15:00 PM EDT [facility] ([facility] ) Outpatient Attender: FRANCESCO silva 02/13/2021 05:05:00 PM EDT [facility] ([facility]) Outpatient Attender: Wes Nolan MD Main Office 02/11/2021 10:45:00 AM EDT [facility] ([facility]) Office Visit Attender: Tammy Lopez 08:00:00 AM EDT [facility] ([facility] ) Outpatient Attender: Amanda Lopez 08:00:00 AM EDT [facility] ([facility] ) Immunizations Vaccine Date Status Description Data Source(s) Influenza, injectable, MDCK, preservative free, joan valent 07/31/2021 09:32:00 AM EDT completed [facility] ([facility]) Influenza, injectable, MDCK, preservative free, joan valent 08/08/2020 08:03:00 AM EDT completed [facility] ([facility]) Medications Medication Brand Name Start Date Product Form Dose Route Admi nistrative Instructions Pharmacy Instructions Status Indications Reaction Description Data Source(s) Alprazolam 0.25 MG Oral Tablet ALPRAZOLAM 08/02/2021 12:00:00 AM EDT tablet 45 TAKE ONE TABLET BY MOUTH EVERY NIGHT AT BEDTIME AND ONE EVERY DAY BY MOUTH NEEDED FOR ANXIETY, MAXIMUM DAILY DOSE = 2 TABLETS TAKE ONE TABLET BY MOUTH EVERY NIGHT AT BEDTIME AND ONE EVERY DAY BY MOUTH NEEDED FOR ANXIETY, MAXIMUM DAILY DOSE = 2 TABLETS SOLD: 08/02/2021 [facility] 324 mg (65 mg iron) 08/02/2021 12:00:00 AM EDT tablet, delayed release (DR/EC) 41 TAKE ONE TABLET BY MOUTH EVERY DAY TAKE ONE TABL ET BY MOUTH EVERY DAY SOLD: 08/05/2021 [facility] ferrous sulfate 325 MG Delayed Release Oral Tablet Ferrous S ulfate 08/01/2021 12:00:00 AM EDT ORAL active M [facility] ([facility]) sennosides, SENIOR CARE 8.6 MG Oral Tablet Senna 08/01/2021 12:00:00 AM EDT active [facility] ([facility]) Administration Of Flu Vaccine 07/31/2021 12:00:00 AM EDT completed [facility] ([facility]) Medication administered onsite 4 mg 07/16/2021 12:00:00 AM EDT tablet 30 TAKE 1 TABLET BY MOUTH THREE TIMES A DAY NEEDED FOR NAUSEA TAKE 1 TABLET BY MOUTH THREE TIMES A DAY NEEDED FOR NAUSEA SOLD: 07/18/2021 [facility] 10 mEq 07/16/2021 12:00:00 AM EDT tablet,ER particles/cry stals 30 TAKE 1 TABLET BY MOUTH AT 8-AM TAKE 1 TABLET BY MOUTH AT 8-AM SOLD: 08/20/2021 [facility] 100 mg 07/16/2021 12:00:00 AM EDT tablet 60 TAKE 1 TABLET BY MOUTH AT 8-AM AND 1 TABLET AT 8-PM TAKE 1 TABLET BY MOUTH AT 8-AM AND 1 TABLET AT 8-PM SO LD: 08/27/2021 [facility] buspirone hydrochloride 15 MG Oral Tablet BUSPIRONE HCL 07/16/2021 12:00:00 AM EDT tablet 180 TAKE 1 TABLET BY MOUTH TWO T IMES A DAY TAKE 1 TABLET BY MOUTH TWO TIMES A DAY SOLD: 07/18/2021 [facility] 90 mcg/actuation 07/16/2021 12:00:00 AM EDT HFA aerosol inha ler 17 INHALE 2 PUFFS BY MOUTH FOUR TIMES A DAY INHALE 2 PUFFS BY MOUTH FOUR TIMES A DAY SOLD: 07/18/2021 [facility] 62.5 mcg/actuation 07/16/2021 12:00:00 AM EDT blister with d evice 30 INHALE 1 PUFF BY MOUTH DAILY INHALE 1 PUFF BY MOUTH DAILY SOLD: 07/18/2021 [facility] 10 mEq 07/16/2021 12:00:00 AM EDT tablet,ER particles/cry stals 30 TAKE 1 TABLET BY MOUTH AT 8-AM TAKE 1 TABLET BY MOUTH AT 8-AM SOLD: 07/18/2021 [facility] 1 mg 07/16/2021 12:00:00 AM EDT tablet 90 TAKE 1 TABLET BY MOUTH DAILY AT 8- AM AND 2 TABLETS AT 8-PM TAKE 1 TABLET BY MOUTH DAILY AT 8-AM AND 2 TABLETS AT 8-PM SOLD: 08/20/2021 [facility] 40 mg 07/16/2021 12:00:00 AM EDT capsule,delayed release (DR/EC) 30 TAKE 1 CAPSULE BY MOUTH AT 8-AM TAKE 1 CAPSULE BY MOUTH AT 8-AM SOLD: 07/18/2021 [facility] Fluticasone propionate 0.05 MG/ACTUAT Metered Dose Brayan al [place] 50 mcg/actuation FLUTICASONE PROPIONATE 07/16/2021 12:00:00 AM EDT spray,suspension 16 INSTILL 2 SPRAYS IN EACH NOSTRIL ONCE DAILY NEEDED INSTILL 2 SPRAYS IN EACH NOSTRIL ONCE DAILY NEEDED SOLD: 07/18/2021 [facility] 62.5 mcg/actuation 07/16/2021 12:00:00 AM EDT blister with d evice 30 INHALE 1 PUFF BY MOUTH DAILY INHALE 1 PUFF BY MOUTH DAILY SOLD: 08/20/2021 [facility] 100 mg 07/16/2021 12:00:00 AM EDT tablet 60 TAKE 1 TABLET BY MOUTH AT 8-AM AND 1 TABLET AT 8-PM TAKE 1 TABLET BY MOUTH AT 8-AM AND 1 TABLET AT 8-PM SO LD: 07/18/2021 [facility] 20 mg 07/16/2021 12:00:00 AM EDT tablet 30 TAKE 1 TABLET BY MOUTH DAILY AT 8-PM TAKE 1 TABLET BY MOUTH DAILY AT 8-PM SOLD: 07/18/2021 [facility] 40 mg 07/16/2021 12:00:00 AM EDT capsule,delayed release (DR/EC) 30 TAKE 1 CAPSULE BY MOUTH AT 8-AM TAKE 1 CAPSULE BY MOUTH AT 8-AM SOLD: 08/20/2021 [facility] 1 mg 07/16/2021 12:00:00 AM EDT tablet 90 TAKE 1 TABLET BY MOUTH DAILY AT 8- AM AND 2 TABLETS AT 8-PM TAKE 1 TABLET BY MOUTH DAILY AT 8-AM AND 2 TABLETS AT 8-PM SOLD: 07/18/2021 [facility] 20 mg 07/16/2021 12:00:00 AM EDT tablet 30 TAKE 1 TABLET BY MOUTH DAILY AT 8-PM TAKE 1 TABLET BY MOUTH DAILY AT 8-PM SOLD: 08/20/2021 [facility] 60 ACTUAT Fluticasone propionate 0.5 MG/ ACTUAT / salmeterol 0.05 MG/ACTUAT Dry Powder Inhaler [Advair] 500-50 mcg/dose FLUTICASONE PROPION/SALMETEROL 07/07/2021 12:00:00 AM EDT blister with device 120 I NHALE ONE PUFF BY MOUTH TWICE A DAY INHALE ONE PUFF BY MOUTH TWICE A DAY SOLD: 07/07/2021 [facility] Nystatin 495222 UNT/ML Oral Suspension Nystatin 05/20/2021 12:00:00 AM EDT active [facility] ([facility]) buspirone hydrochloride 15 MG Oral Tablet Buspirone HCL 05/13/2021 12:00:00 AM EDT ORAL active [facility] ([facility]) Alprazolam 0.25 MG Oral Tablet Alprazolam 05/13/2021 12:00:00 AM EDT ORAL active [facility] ([facility]) Potassium Chloride 10 MEQ Extended Release Oral Tablet Potassium Chloride [facility] 04/24/2021 12:00:00 AM EDT active [facility] ([facility]) Losartan Potassium 100 MG Oral Tablet Losartan Potassium 12:00:00 AM EDT completed [facility] ([facility]) buspirone hydrochloride 7.5 MG Oral Tablet Buspirone HCL 04/23/2021 12:00:00 AM EDT ORAL completed [facility] ([facility]) buspirone hydrochloride 5 MG Oral Tablet Buspirone HCL 02/24/2021 12:00:00 AM EDT ORAL completed [facility] ([facility]) Amoxicillin 875 MG / Clavulanate 125 MG Oral Tablet Am oxicillin/Clavulanate Potassium 02/13/2021 12:00:00 AM EDT ORAL active [facility] ([facility]) Sutab Sutab 02/11/2021 12:00:00 AM EDT active [facility] ([facility]) Ondansetron 4 MG Oral Tablet Ondansetron HCL 02/06/2021 12:00:00 AM EDT active [facility] ([facility]) 02 2 Liters Nasal Can 01/28/2021 12:00:00 AM EDT completed [facility] ([facility]) Administration Of Flu Vaccine 08/08/2020 12:00:00 AM EDT completed [facility] ([facility]) Medication administered onsite Insurance Providers Payer name Policy type / Coverage type Policy ID Covered constitution party ID Covered constitution party's relationship to licea Policy Licea Plan Information MEDICARE [id number] SP [id number] A Medicare Natl Govt Serv Medicare Primary [id number] Self [id number] Medicare Natl Govt Serv Medicare Primary [id number] Self MEDICARE [id number] Yaneth [id number] A MEDICARE [id number] SP [id number] Medicare Natl Govt Serv Medicare Primary [id number] Self [id number] Medicare Natl Govt Serv Medicare Primary [id number] Self [id number] Medicare Natl Govt Servic Medicare Primary [id number] Self [id number] Medicare Natl Govt Servic Medicare Primary [id number] Self [id number] Medicaid Medigap Part B [id number] Self [id number] MEDICAID [id number] SP [id number] Medicaid Medigap Part B [id number] Self MEDICARE C [id number] S [id number] A MEDICAID M [id number] S [id number] MEDICAID M [id number] S [id number] A MEDICARE [id number] SP [id number] MEDICARE COMPLETE [id number] SP [id number] [place] [id number] SP [id number] N MEDICARE COMPLETE [id number] SP [id number] MEDICARE COMPLETE [id number] SP [id number] SP [id number] Medicaid Medigap Part B [id number] Self [id number] Medicaid Medigap Part B [id number] Self [id number] Medicaid Medigap Part B [id number] [id number] Self [id number] Medicaid Medigap Part B [id number] Self [id number] Problems, Conditions, and Diagnoses Code Display Name Description Problem Type Effective Dates Data Source(s) [id number] Screening for malignant neoplasm of colo n Screening for malignant neoplasm of colon Problem 02/11/2021 12:00:00 AM EDT [facility] Surgeries/Procedures Procedure Description Date Indications Data Source(s) OFFICE OUTPATIENT VISIT 25 MINUTES 07/31/2021 12:00:00 AM EDMichel SAXENA ([facility]) Chronic Care Management Services Ea Addl 20 Min 2020 12:00:00 AM EDMichel SAXENA ([facility]) Chronic Care MGMT 20 Mins Clinical Staff Time Per Calendar M onth 05/14/2021 12:00:00 AM MIKE [facility]XENA ([facility] ) OFFICE OUTPATIENT VISIT 25 MINUTES 05/13/2021 12:00:00 AM EDT [facility] ([facility]) INITIAL HOSPITAL CARE/DAY 70 MINUTES 05/03/2021 12:00: 00 AM EDT [facility] ([facility], ) Singer Cre SRV W/I 7 Days Of DC, Comm W/I 2 Dys Med Rec 04/23/2021 12:00:00 AM EDT [facility] ([facility] ) Chronic Care MGMT 20 Mins Clinical Staff Time Per Calendar M [facility] 04/11/2021 12:00:00 AM EDT [facility] ([facility] ) Chronic Care Management Services Ea Addl 20 Min 2020 12:00:00 AM EDT [facility] ([facility]) Chronic Care MGMT 20 Mins Clinical Staff Time Per Calendar M [facility] 03/24/2021 12:00:00 AM EDT [facility] ([facility] ) Colonoscopy 02/26/2021 12:00:00 AM EDT M [facility] ([facility]) Complex Chronic Care MGMT Service Ea Addl 30 Min 02/24 12:00:00 AM EDT [facility] ([facility]) Complex Chronic Care Management SVC 1St 60 Min 021 12:00:00 AM EDT [facility] ([facility]) PERIODIC PREVENTIVE MED EST PATIENT 65YRS&> 01/28/2021 12:00:00 AM EDT [facility] ([facility]) Complex Chronic Care Management SVC 1St 60 Min 021 12:00:00 AM EDT [facility] ([facility]) Complex Chronic Care MGMT Service Ea Addl 30 Min 01/20 12:00:00 AM EDT [facility] ([facility]) Chronic Care MGMT 20 Mins Clinical Staff Time Per Calendar M [facility] 11/27/2020 12:00:00 AM EST [facility] ([facility] ) Results ID Date Data Source [id number] 07/31/2021 10:10:00 AM EDT [facility] ([facility]) Name Value Range Interpretation Code Description Data Pamella rce(s) Supporting Document(s) Ferritin [Mass/volume] in Serum or Plasma 21 ng/mL 8-252 [facility] ([facility]) ID Date Data Source [id number] 07/31/2021 10:06:00 AM EDT [facility] ([facility]) Name Value Range Interpretation Code Description Data Pamella rce(s) Supporting Document(s) Thyrotropin [Units/volume] in Serum or Plasma by Detec tion limit <= 0.05 mIU/L 1.17 uIU/mL 0.36-3.74 [facility] ([facility] ) ID Date Data Source [id number] 07/31/2021 10:06:00 AM EDT [facility] ([facility]) Name Value Range Interpretation Code Description Data Pamella rce(s) Supporting Document(s) Urea nitrogen [Mass/volume] in Serum or Plasma 19 mg/dL 7-18 [facility] ([facility]) Glucose [Mass/volume] in Serum or Plasma 89 mg/dL 74-99 [facility] ([facility]) 100-125 mg/dL PRE-DIABETES/FASTING >126 mg/dL DIABETES/FASTING Creatinine 0.5 mg/dL 0.6-1.3 [facility] Sodium [Moles/volume] in Serum or Plasma 140 meq/L 136-145 [facility] ([facility]) Potassium [Moles/volume] in Serum or Plasma 4.1 meq/L 3.5-5.1 [facility] ([facility]) Chloride [Moles/volume] in Serum or Plasma 101 meq/L 98-107 [facility] ([facility]) Carbon dioxide, total [Moles/volume] in Serum or Plasma 36 meq/L 21 -32 [facility] ([facility]) Calcium [Mass/volume] in Serum or Plasma 9.3 mg/dL 8.5-10.1 [facility] ([facility]) Glomerular filtration rate/1.73 sq M pre dicted among non-blacks [Volume Rate/Area] in Serum or Plasma by Creatinine-based formula (MDRD) Laboratory test result [facility] ([facility] Glomerular filtration rate/1.73 sq M pre dicted among blacks [Volume Rate/Area] in Serum or Plasma by Creatinine-based formula (MDRD) Laboratory test result [facility] ([place] [facility]) <content>CHRONIC KIDNEY DISEASE STAGING PER NKF</content>
<content></content>
<content>STAGE I & II GFR >= 60 NORMAL TO MILDLY DECREASED</content>
<content>STAGE III GFR 30-59 MODERATELY DECREASED</content>
<content>STAGE IV GFR 15-29 SEVERELY DECREASED</content>
<content>STAGE V GFR <15 VERY LITTLE GFR LEFT</content>
<content>ESRD GFR <15 ON CONTINUOUS DRIER OPERATOR</content>
<content></content> ID Date Data Source [id number] 07/31/2021 10:06:00 AM EDT [facility] ([facility]) Name Value Range Interpretation Code Description Data Pamella rce(s) Supporting Document(s) Magnesium 1.8 mg/dL 1.8-2.4 [facility] ID Date Data Source [id number] 07/31/2021 10:06:00 AM EDT [facility] ([facility]) Name Value Range Interpretation Code Description Data Pamella rce(s) Supporting Document(s) Leukocytes [#/volume] in Blood by Automated count 9.6 x10*3/UL 4.1-10 .9 [facility] ([place] [facility]) Hemoglobin [Mass/volume] in Blood 12.3 g/dL 12.0-18.0 [facility] ([facility]) Erythrocytes [#/volume] in Blood by Automated count 4.18 x10*6/UL 4.2 0-6.30 [facility] ([place] [facility]) Hematocrit [Volume Fraction] of Blood by Automated count 34.9 % 3 7.0-51.0 [facility] ([facility]) MCH 29.5 pg 26.0-32.0 [facility] ([facility]) MCHC 35.4 g/dL 31.0-38.0 [facility] ([facility]) MCV 83.4 fL 80.0-97.0 [facility] ([facility]) Erythrocyte distribution width [Ratio] by Automated count 13.0 % 11.6-13.7 [facility] ([facility]) MPV 7.7 FL 7.8-11.0 [facility]) Platelets [#/volume] in Blood by Automated count 251 x10*3/UL 140-440 [facility] ([facility]) Neut % 74.4 % 37.0-92.0 [facility] [facility]) Mid % 5.1 % 1.7-9.3 [facility] [facility] Lymph % 20.5 % 10.0-58.5 [facility] [facility]) Mid # 0.5 x10*3/UL 0.1-0.6 [facility] ([facility]) Neut # 7.2 x10*3/UL 2.0-7.8 [facility] ([facility]) Lymph # 1.9 x10*3/UL 0.6-4.1 [facility] ([facility]) ID Date Data Source [id number] 05/28/2021 12:30:00 PM EDT [facility] ([facility]) Name Value Range Interpretation Code Description Data Pamella rce(s) Supporting Document(s) Glucose, Fasting 97 mg/dL 70-100 [facility] ([facility]) Blood Urea Nitrogen 13 mg/dL 7-18 [facility] ([facility]) Creatinine For GFR 0.44 mg/dL 0.55-1.30 [facility] ([facility]) Glomerular Filtration Rate Laboratory test result [facility] ([facility]) <content>Units are mL/min/1.73 m2</content>
<content></content>
<content>Chronic Kidney Disease Staging per NKF:</content>
<content></content>
<content>Stage I & II GFR >=60 Normal to Mildly Decreased</content>
<content>Stage III GFR 30- 59 Moderately Decreased</content>
<content>Stage IV GFR 15-29 Severely Decreased</content>
<content>Stage V GFR <15 Very Little GFR Left</content>
<content>ESRD GFR <15 on CONTINUOUS DRIER OPERATOR</content>
<content></content> Sodium Level 141 meq/L 136-145 [facility] ([facility]) Potassium Serum 4.0 meq/L 3.5-5.1 [facility] ([facility]) Chloride Level 101 meq/L 98-107 [facility] ([facility]) Carbon Dioxide Level 35 meq/L 21-32 [facility] Anion Gap 5 meq/L 8-16 [facility] ([place] [facility]) Calcium Level 9.5 mg/dL 8.8-10.2 [facility] ([facility]) ID Date Data Source [id number] 05/13/2021 11:56:00 AM EDT [facility] ([facility]) Name Value Range Interpretation Code Description Data Pamella rce(s) Supporting Document(s) Glucose [Mass/volume] in Serum or Plasma 88 mg/dL 74-99 [facility] ([facility]) 100-125 mg/dL PRE-DIABETES/FASTING >126 mg/dL DIABETES/FASTING Urea nitrogen [Mass/volume] in Serum or Plasma 19 mg/dL 7-18 [facility] ([facility]) Creatinine 0.5 mg/dL 0.6-1.3 [facility] ([facility]) Sodium [Moles/volume] in Serum or Plasma 143 meq/L 136-145 [facility] ([facility]) Potassium [Moles/volume] in Serum or Plasma 3.7 meq/L 3.5-5.1 [facility] ([facility]) Chloride [Moles/volume] in Serum or Plasma 102 meq/L 98-107 [facility] ([facility]) Carbon dioxide, total [Moles/volume] in Serum or Plasma 35 meq/L 21 -32 [facility] ([facility]) Calcium [Mass/volume] in Serum or Plasma 9.5 mg/dL 8.5-10.1 [facility] ([facility]) Alkaline phosphatase isoenzyme [Units/volume] in Serum or Pl asma 90 mg/dL 46-116 [facility] ([facility]) Total Bilirubin 0.9 mg/dL 0.2-1.0 [facility] ([facility]) Aspartate aminotransferase [Enzymatic activity/volume] in Serum or Plasma 17 U/L 15-37 [facility] ([facility] ) Alanine aminotransferase [Enzymatic activity/volume] in Seru m or Plasma 30 U/L 12-78 [facility] ([facility]) Albumin [Mass/volume] in Serum or Plasma 3.4 g/dL 3.4-5.0 [facility] ([facility]) Proteinase 3 Ab [Units/volume] in Serum 6.5 g/dL 6.4-8.2 [facility] ([facility]) A/G Ratio 1.10 CALC 1.00-1.90 [facility] ([facility]) Glomerular filtration rate/1.73 sq M pre dicted among non-blacks [Volume Rate/Area] in Serum or Plasma by Creatinine-based formula (MDRD) Laboratory test result [facility] ([place] [facility] Glomerular filtration rate/1.73 sq M pre dicted among blacks [Volume Rate/Area] in Serum or Plasma by Creatinine-based formula (MDRD) Laboratory test result [facility] ([place] [facility]) <content>CHRONIC KIDNEY DISEASE STAGING PER NKF</content>
<content></content>
<content>STAGE I & II GFR >= 60 NORMAL TO MILDLY DECREASED</content>
<content>STAGE III GFR 30-59 MODERATELY DECREASED</content>
<content>STAGE IV GFR 15-29 SEVERELY DECREASED</content>
<content>STAGE V GFR <15 VERY LITTLE GFR LEFT</content>
<content>ESRD GFR <15 ON CONTINUOUS DRIER OPERATOR</content>
<content></content> ID Date Data Source [id number] 05/13/2021 11:56:00 AM EDT [facility] ([facility]) Name Value Range Interpretation Code Description Data Pamella rce(s) Supporting Document(s) Leukocytes [#/volume] in Blood by Automated count 13.4 x10*3/UL 4.1-1 0.9 [facility] ([facility]) NOTE: RESULT VERIFIED. Erythrocytes [#/volume] in Blood by Automated count 4.07 x10*6/UL 4.2 0-6.30 [facility] ([facility]) Hemoglobin [Mass/volume] in Blood 12.2 g/dL 12.0-18.0 [facility] ([facility]) Hematocrit [Volume Fraction] of Blood by Automated count 35.7 % 3 7.0-51.0 [facility] ([facility]) MCH 30.0 pg 26.0-32.0 [facility] [facility] MCV 87.8 fL 80.0-97.0 [facility] [facility] Platelets [#/volume] in Blood by Automated count 351 x10*3/UL 140-440 [facility] ([facility]) MCHC 34.1 g/dL 31.0-38.0 [facility] [facility] Erythrocyte distribution width [Ratio] by Automated count 13.6 % 11.6-13.7 [facility] ([facility]) MPV 7.2 FL 7.8-11.0 [facility] [facility] Lymph % 23.5 % 10.0-58.5 [facility] [facility] Mid % 5.9 % 1.7-9.3 [facility] [facility] Lymph # 3.1 x10*3/UL 0.6-4.1 [facility] ([facility]) Neut % 70.6 % 37.0-92.0 [facility] [facility] Mid # 0.8 x10*3/UL 0.1-0.6 [facility] ([facility]) Neut # 9.5 x10*3/UL 2.0-7.8 [facility] ([facility]) ID Date Data Source [id number] 05/02/2021 12:13:00 PM EDT [facility] Name Value Range Interpretation Code Description Data Pamella rce(s) Supporting Document(s) SARS-CoV-2 (COVID 19) NEGATIVE - SARS-CoV-2 (COVID19) [facility] This lab was ordered by [facility] a nd reported by [facility]. ID Date Data Source [id number] 05/01/2021 11:54:00 AM EDT [facility] Name Value Range Interpretation Code Description Data Pamella rce(s) Supporting Document(s) SARS-CoV-2 (COVID 19) NEGATIVE - SARS-CoV-2 (COVID19) [facility] This lab was ordered by [facility] a nd reported by [facility]. ID Date Data Source [id number] 04/29/2021 03:20:00 PM EDT [facility] Name Value Range Interpretation Code Description Data Pamella rce(s) Supporting Document(s) SARS-CoV-2 (COVID 19) NEGATIVE - SARS-CoV-2 (COVID19) [facility] This lab was ordered by [facility] a nd reported by [facility]. ID Date Data Source [id number] 04/23/2021 01:03:00 PM EDT [facility] ([facility]) Name Value Range Interpretation Code Description Data Pamella rce(s) Supporting Document(s) Glucose [Mass/volume] in Serum or Plasma 91 mg/dL 74-99 [facility] ([facility]) 100-125 mg/dL PRE-DIABETES/FASTING >126 mg/dL DIABETES/FASTING Urea nitrogen [Mass/volume] in Serum or Plasma 24 mg/dL 7-18 [facility] ([facility]) Creatinine 0.6 mg/dL 0.6-1.3 [facility] Potassium [Moles/volume] in Serum or Plasma 3.0 meq/L 3.5-5.1 [facility] ([facility]) Sodium [Moles/volume] in Serum or Plasma 141 meq/L 136-145 [facility] ([facility]) Chloride [Moles/volume] in Serum or Plasma 97 meq/L 98-107 [facility] ([facility]) Carbon dioxide, total [Moles/volume] in Serum or Plasma 43 meq/L 21 -32 [facility] ([facility]) Calcium [Mass/volume] in Serum or Plasma 9.5 mg/dL 8.5-10.1 [facility] ([facility]) Glomerular filtration rate/1.73 sq M pre dicted among blacks [Volume Rate/Area] in Serum or Plasma by Creatinine-based formula (MDRD) Laboratory test result [facility] ([facility]) <content>CHRONIC KIDNEY DISEASE STAGING PER NKF</content>
<content></content>
<content>STAGE I & II GFR >= 60 NORMAL TO MILDLY DECREASED</content>
<content>STAGE III GFR 30-59 MODERATELY DECREASED</content>
<content>STAGE IV GFR 15-29 SEVERELY DECREASED</content>
<content>STAGE V GFR <15 VERY LITTLE GFR LEFT</content>
<content>ESRD GFR <15 ON CONTINUOUS DRIER OPERATOR</content>
<content></content> Glomerular filtration rate/1.73 sq M pre dicted among non-blacks [Volume Rate/Area] in Serum or Plasma by Creatinine-based formula (MDRD) Laboratory test result [facility] ([facility] ) ID Date Data Source [id number] 04/23/2021 01:03:00 PM EDT [facility] Name Value Range Interpretation Code Description Data Pamella rce(s) Supporting Document(s) Leukocytes [#/volume] in Blood by Automated count 18.7 x10*3/UL 4.1-1 0.9 [facility] ([facility]) NOTE: CBC VERIFIED Erythrocytes [#/volume] in Blood by Automated count 4.14 x10*6/UL 4.2 0-6.30 [facility] ([facility]) Hemoglobin [Mass/volume] in Blood 12.2 g/dL 12.0-18.0 [facility] ([place] [facility]) Hematocrit [Volume Fraction] of Blood by Automated count 36.2 % 3 7.0-51.0 [facility] ([facility]) MCH 29.5 pg 26.0-32.0 [facility] ([place] [facility]) MCV 87.5 fL 80.0-97.0 [facility] ([place] [facility]) Erythrocyte distribution width [Ratio] by Automated count 13.0 % 11.6-13.7 [facility] ([facility]) MCHC 33.8 g/dL 31.0-38.0 [facility] ([facility]) Platelets [#/volume] in Blood by Automated count 523 x10*3/UL 140-440 [facility] ([facility]) MPV 7.2 FL 7.8-11.0 [facility] [facility] Mid % 5.6 % 1.7-9.3 [facility] [facility] Lymph % 24.9 % 10.0-58.5 [facility] [facility] Mid # 1.1 x10*3/UL 0.1-0.6 [facility] ([facility]) Neut % 69.5 % 37.0-92.0 [facility] [facility] Lymph # 4.6 x10*3/UL 0.6-4.1 [facility] ([facility]) Neut # 13.0 x10*3/UL 2.0-7.8 [facility] ([facility]) ID Date Data Source [id number] 04/17/2021 01:54:00 PM EDT [facility] Name Value Range Interpretation Code Description Data Pamella rce(s) Supporting Document(s) SARS coronavirus 2 RNA [Presence] in Res piratory specimen by ALEENA with probe detection NEGATIVE [facility] This lab was ordered by [facility] a nd reported by [facility]. ID Date Data Source [id number] 02/21/2021 11:55:00 AM EDT [facility] Name Value Range Interpretation Code Description Data Pamella rce(s) Supporting Document(s) SARS-CoV-2 (COVID-19) RNA [Presence] in Respiratory specimen by ALEENA with probe detection Not Detected [facility] This lab was ordered by [facility] and reported by [email or web address] ID Date Data Source [id number] 01/28/2021 09:03:00 AM EDT [facility] ([facility]) Name Value Range Interpretation Code Description Data Pamella rce(s) Supporting Document(s) Iron (Fe) 58 ug/dL 50-170 [facility] [facility] Total Iron Binding Capacity 326 ug/dL 250-450 [place] [facility] ([facility]) Percent Saturation 17.8 % 13.2-45.0 [facility] ([facility]) ID Date Data Source [id number] 01/28/2021 09:03:00 AM EDT [facility] ([facility]) Name Value Range Interpretation Code Description Data Pamella rce(s) Supporting Document(s) Ferritin [Mass/volume] in Serum or Plasma 70 ng/mL 8-252 [facility] ([facility]) ID Date Data Source [id number] 01/28/2021 09:02:00 AM EDT [facility] ([facility]) Name Value Range Interpretation Code Description Data Pamella rce(s) Supporting Document(s) Thyrotropin [Units/volume] in Serum or Plasma by Detec tion limit <= 0.05 mIU/L 1.54 uIU/mL 0.36-3.74 [facility] ([facility] ) ID Date Data Source [id number] 01/28/2021 09:02:00 AM EDT [facility] ([facility]) Name Value Range Interpretation Code Description Data Pamella rce(s) Supporting Document(s) Cholesterol [Mass/volume] in Serum or Plasma 194 mg/dL 131-200 [facility] ([facility]) Triglyceride [Mass/volume] in Serum or Plasma 211 mg/dL 30-150 [facility] ([facility]) Cholesterol in HDL [Mass/volume] in Serum or Plasma 58 mg/dL 35-60 [facility] ([facility]) Cholesterol in LDL [Mass/volume] in Serum or Plasma by calcu lation 94 CALC 50-159 [facility] ([facility]) ID Date Data Source [id number] 01/28/2021 09:02:00 AM EDT [facility] ([facility]) Name Value Range Interpretation Code Description Data Pamella rce(s) Supporting Document(s) Glucose [Mass/volume] in Serum or Plasma 101 mg/dL 74-99 [facility] ([facility]) 100-125 mg/dL PRE-DIABETES/FASTING >126 mg/dL DIABETES/FASTING Creatinine 0.5 mg/dL 0.6-1.3 [facility] [facility] Urea nitrogen [Mass/volume] in Serum or Plasma 15 mg/dL 7-18 [facility] ([facility]) Sodium [Moles/volume] in Serum or Plasma 142 meq/L 136-145 [facility] ([facility]) Chloride [Moles/volume] in Serum or Plasma 100 meq/L 98-107 [facility] ([facility] [place] [facility]) Potassium [Moles/volume] in Serum or Plasma 4.0 meq/L 3.5-5.1 [facility] ([facility] [place] [facility]) Carbon dioxide, total [Moles/volume] in Serum or Plasma 33 meq/L 21 -32 [facility] ([facility] [place] [facility]) Alkaline phosphatase isoenzyme [Units/volume] in Serum or Pl asma 124 mg/dL 46-116 [facility] ([facility] [place] [facility]) Calcium [Mass/volume] in Serum or Plasma 9.0 mg/dL 8.5-10.1 [facility] ([place] [facility]) Total Bilirubin 0.5 mg/dL 0.2-1.0 [facility] ([facility]) Aspartate aminotransferase [Enzymatic activity/volume] in Serum or Plasma 15 U/L 15-37 [facility] ([facility] ) Albumin [Mass/volume] in Serum or Plasma 3.9 g/dL 3.4-5.0 [facility] ([facility] [place] [facility]) Alanine aminotransferase [Enzymatic activity/volume] in Seru m or Plasma 18 U/L 12-78 [facility] ([facility] [place] [facility]) A/G Ratio 1.05 CALC 1.00-1.90 [facility] [facility]) Proteinase 3 Ab [Units/volume] in Serum 7.6 g/dL 6.4-8.2 [facility] ([facility] [place] [facility]) Glomerular filtration rate/1.73 sq M pre dicted among blacks [Volume Rate/Area] in Serum or Plasma by Creatinine-based formula (MDRD) Laboratory test result [facility] ([place] [facility]) <content>CHRONIC KIDNEY DISEASE STAGING PER NKF</content>
<content></content>
<content>STAGE I & II GFR >= 60 NORMAL TO MILDLY DECREASED</content>
<content>STAGE III GFR 30-59 MODERATELY DECREASED</content>
<content>STAGE IV GFR 15-29 SEVERELY DECREASED</content>
<content>STAGE V GFR <15 VERY LITTLE GFR LEFT</content>
<content>ESRD GFR <15 ON CONTINUOUS DRIER OPERATOR</content>
<content></content> Glomerular filtration rate/1.73 sq M pre dicted among non-blacks [Volume Rate/Area] in Serum or Plasma by Creatinine-based formula (MDRD) Laboratory test result [facility] ([facility] ) ID Date Data Source [id number] 01/28/2021 09:02:00 AM EDT [facility] ([facility] Name Value Range Interpretation Code Description Data Pamella rce(s) Supporting Document(s) Creatine kinase [Enzymatic activity/volume] in Serum or Plasma 23 U /L 26-192 [facility] ([place] [facility]) Magnesium 1.8 mg/dL 1.8-2.4 [facility] ([facility]) ID Date Data Source [id number] 01/28/2021 09:02:00 AM EDT [facility] ([facility] Name Value Range Interpretation Code Description Data Pamella rce(s) Supporting Document(s) Leukocytes [#/volume] in Blood by Automated count 11.1 x10*3/UL 4.1-1 0.9 [facility] ([place] [facility]) Erythrocytes [#/volume] in Blood by Automated count 3.69 x10*6/UL 4.2 0-6.30 [facility] ([place] [facility]) Hemoglobin [Mass/volume] in Blood 11.3 g/dL 12.0-18.0 [facility] ([place] [facility]) MCV 87.4 fL 80.0-97.0 [facility] ([facility]) Hematocrit [Volume Fraction] of Blood by Automated count 32.2 % 3 7.0-51.0 [facility] ([place] [facility]) MCH 30.6 pg 26.0-32.0 [facility] ([facility]) MCHC 35.0 g/dL 31.0-38.0 [facility] ([facility]) Erythrocyte distribution width [Ratio] by Automated count 13.3 % 11.6-13.7 [facility] ([facility]) Platelets [#/volume] in Blood by Automated count 300 x10*3/UL 140-440 [facility] ([facility]) MPV 7.4 FL 7.8-11.0 [facility] [facility] Lymph % 18.6 % 10.0-58.5 [facility] ([place] [facility] Mid % 4.7 % 1.7-9.3 [facility] [facility] Lymph # 2.0 x10*3/UL 0.6-4.1 [facility] ([place] [facility]) Neut % 76.7 % 37.0-92.0 [facility] [facility] Neut # 8.5 x10*3/UL 2.0-7.8 [facility] ([place] [facility]) Mid # 0.6 x10*3/UL 0.1-0.6 [facility] ([facility] [place] [facility]) ID Date Data Source [id number] 08/08/2020 07:42:00 AM EDT [facility] ([facility]) Name Value Range Interpretation Code Description Data Pamella rce(s) Supporting Document(s) Thyrotropin [Units/volume] in Serum or Plasma by Detec tion limit <= 0.05 mIU/L 2.10 uIU/mL 0.36-3.74 [facility] ([facility] ) ID Date Data Source [id number] 08/08/2020 07:42:00 AM EDT [facility] ([facility]) Name Value Range Interpretation Code Description Data Pamella rce(s) Supporting Document(s) Cholesterol [Mass/volume] in Serum or Plasma 218 mg/dL 131-200 [facility] ([facility]) Triglyceride [Mass/volume] in Serum or Plasma 146 mg/dL 30-150 [facility] ([facility]) Cholesterol in LDL [Mass/volume] in Serum or Plasma by calcu lation 125 CALC 50-159 [facility] ([facility]) Cholesterol in HDL [Mass/volume] in Serum or Plasma 64 mg/dL 35-60 [facility] ([facility]) ID Date Data Source [id number] 08/08/2020 07:42:00 AM EDT [facility] ([facility]) Name Value Range Interpretation Code Description Data Pamella rce(s) Supporting Document(s) Glucose [Mass/volume] in Serum or Plasma 115 mg/dL 74-99 [facility] ([facility]) 100-125 mg/dL PRE-DIABETES/FASTING >126 mg/dL DIABETES/FASTING Sodium [Moles/volume] in Serum or Plasma 141 meq/L 136-145 [facility] ([facility]) Creatinine 0.7 mg/dL 0.6-1.3 [facility] ([facility]) Urea nitrogen [Mass/volume] in Serum or Plasma 21 mg/dL 7-18 [facility] ([facility]) Potassium [Moles/volume] in Serum or Plasma 4.0 meq/L 3.5-5.1 [facility] ([facility]) Chloride [Moles/volume] in Serum or Plasma 100 meq/L 98-107 [facility] ([facility]) Carbon dioxide, total [Moles/volume] in Serum or Plasma 38 meq/L 21 -32 [facility] ([facility]) Calcium [Mass/volume] in Serum or Plasma 9.7 mg/dL 8.5-10.1 [facility] ([facility]) Alkaline phosphatase isoenzyme [Units/volume] in Serum or Pl asma 130 mg/dL 46-116 [facility] ([facility]) NOTE: RESULT VERIFIED. Alanine aminotransferase [Enzymatic activity/volume] in Seru m or Plasma 22 U/L 12-78 [facility] ([facility]) Aspartate aminotransferase [Enzymatic activity/volume] in Serum or Plasma 15 U/L 15-37 [facility] ([facility] ) Total Bilirubin 0.6 mg/dL 0.2-1.0 [facility] ([facility]) Albumin [Mass/volume] in Serum or Plasma 3.9 g/dL 3.4-5.0 [facility] ([facility]) A/G Ratio 0.98 CALC 1.00-1.90 [facility]) Proteinase 3 Ab [Units/volume] in Serum 7.9 g/dL 6.4-8.2 [facility] ([facility]) Glomerular filtration rate/1.73 sq M pre dicted among non-blacks [Volume Rate/Area] in Serum or Plasma by Creatinine-based formula (MDRD) Laboratory test result [facility] ([facility] ) Glomerular filtration rate/1.73 sq M pre dicted among blacks [Volume Rate/Area] in Serum or Plasma by Creatinine-based formula (MDRD) Laboratory test result [facility] ([facility]) <content>CHRONIC KIDNEY DISEASE STAGING PER NKF</content>
<content></content>
<content>STAGE I & II GFR >= 60 NORMAL TO MILDLY DECREASED</content>
<content>STAGE III GFR 30-59 MODERATELY DECREASED</content>
<content>STAGE IV GFR 15-29 SEVERELY DECREASED</content>
<content>STAGE V GFR <15 VERY LITTLE GFR LEFT</content>
<content>ESRD GFR <15 ON CONTINUOUS DRIER OPERATOR</content>
<content></content> ID Date Data Source [id number] 08/08/2020 07:42:00 AM EDT [facility] Name Value Range Interpretation Code Description Data Pamella rce(s) Supporting Document(s) Leukocytes [#/volume] in Blood by Automated count 11.8 x10*3/UL 4.1-1 0.9 [facility] ([facility]) NOTE: RESULT VERIFIED. Erythrocytes [#/volume] in Blood by Automated count 4.22 x10*6/UL 4.2 0-6.30 [facility] ([facility]) Hemoglobin [Mass/volume] in Blood 12.6 g/dL 12.0-18.0 [facility] ([facility]) MCV 85.7 fL 80.0-97.0 [facility] Hematocrit [Volume Fraction] of Blood by Automated count 36.2 % 3 7.0-51.0 [facility]) Erythrocyte distribution width [Ratio] by Automated count 12.8 % 11.6-13.7 [facility] ([facility]) MCHC 34.9 g/dL 31.0-38.0 [facility] [facility] MCH 29.9 pg 26.0-32.0 [facility] ([facility]) Platelets [#/volume] in Blood by Automated count 336 x10*3/UL 140-440 [facility] ([facility]) MPV 7.8 FL 7.8-11.0 [facility] [facility] Mid % 5.9 % 1.7-9.3 [facility] [facility] Lymph % 23.5 % 10.0-58.5 [facility] [facility] Mid # 0.8 x10*3/UL 0.1-0.6 [facility] ([facility]) Lymph # 2.7 x10*3/UL 0.6-4.1 [facility] ([facility]) Neut % 70.6 % 37.0-92.0 [facility] [facility] Neut # 8.3 x10*3/UL 2.0-7.8 [facility] ([facility]) Procedure Social History Code Duration Value Status Description Data Source(s ) Smoking 02/13/2021 12:00:00 AM EDT Patient is a former smoker completed Patient is a former smoker [facility] ([facility]) Vital Signs ID Date Data Source UNK Name Value Range Interpretation Code Description Data Source(s) Systolic blood pressure 126 mm[Hg] 126 mm[Hg] M [facility] ([facility]) RT Arm Diastolic blood pressure 64 mm[Hg] 64 mm[Hg] [facility] ([facility]) RT Arm Heart rate 77 /min 77 /min [facility]) Body height 61 [in_i] 61 [in_i] [facility] ([facility]) 5'1" Body weight 143.00 [lb_av] 143.00 [lb_av] [facility] Oxygen saturation in Arterial blood by Pulse oximetry 93 % 93 % [facility]) With O2 Body mass index (BMI) [Ratio] 27.0 kg/m2 27.0 k g/m2 [facility] ([facility]) Heart rate 78 /min 78 /min [facility] ([facility]) Body mass index (BMI) [Ratio] 25.3 kg/m2 25.3 k g/m2 [facility] ([facility]) Body height 61 [in_i] 61 [in_i] [facility] ([facility]) 5'1" Systolic blood pressure 110 mm[Hg] 110 mm[Hg] M [facility] ([facility]) Diastolic blood pressure 66 mm[Hg] 66 mm[Hg] [facility] ([facility]) Body weight 134.00 [lb_av] 134.00 [lb_av] [facility] ([facility]) Oxygen saturation in Arterial blood by Pulse oximetry 90 % 90 % [facility] ([facility]) With O2, 94% Body height 61 [in_i] 61 [in_i] [facility] ([facility]) 5'1" Heart rate 76 /min 76 /min [facility] ([facility]) Body weight 143.00 [lb_av] 143.00 [lb_av] [facility] ([facility]) Oxygen saturation in Arterial blood by Pulse oximetry 91 % 91 % [facility] ([facility]) Oxygen saturation in Arterial blood by Pulse oximetry --post exerci se 86 % 86 % [facility] ([facility]) With 02 Body mass index (BMI) [Ratio] 27.0 kg/m2 27.0 k g/m2 [facility] ([facility]) Systolic blood pressure 120 mm[Hg] 120 mm[Hg] [facility] ([facility]) LT Arm Diastolic blood pressure 70 mm[Hg] 70 mm[Hg] [facility] ([facility]) LT Arm Systolic blood pressure 133 mm[Hg] 133 mm[Hg] [facility] ([facility], [facility]) Respiratory rate 20 /min 20 /min [facility] ( [facility], [facility]) Oxygen saturation in Arterial blood by Pulse oximetry 88 % 88 % [facility] ([place] [facility], [facility]) Body temperature 97.8 [degF] 97.8 [degF] [facility] ([place] [facility], [facility]) Body weight 147.00 [lb_av] 147.00 [lb_av] [facility] [facility]) Body height 61 [in_i] 61 [in_i] [facility] ([facility], [facility]) 5'1" Body mass index (BMI) [Ratio] 27.8 kg/m2 27.8 k g/m2 [facility] ([facility], [facility]) Diastolic blood pressure 76 mm[Hg] 76 mm[Hg] [facility] ([facility], [facility]) Heart rate 75 /min 75 /min [facility] ([facility]) Body height 61 [in_i] 61 [in_i] [facility] 5'1" Systolic blood pressure 130 mm[Hg] 130 mm[Hg] M [facility] ([facility]) Diastolic blood pressure 64 mm[Hg] 64 mm[Hg] [facility] ([facility]) Heart rate 77 /min 77 /min [facility]) Body mass index (BMI) [Ratio] 27.8 kg/m2 27.8 k g/m2 [facility] ([facility]) Body weight 66.679 kg 66.679 kg [facility] Body temperature 97.3 [degF] 97.3 [degF] [facility] ([facility]) Body weight 147.00 [lb_av] 147.00 [lb_av] [facility] T ([facility]) Body weight 146.00 [lb_av] 146.00 [lb_av] [facility] T ([facility]) Body height 61 [in_i] 61 [in_i] [facility] ([facility]) 5'1" Diastolic blood pressure 62 mm[Hg] 62 mm[Hg] [facility] ([facility]) Heart rate 78 /min 78 /min [facility] ([facility]) Systolic blood pressure 128 mm[Hg] 128 mm[Hg] M [facility] ([facility]) Oxygen saturation in Arterial blood by Pulse oximetry 93 % 93 % [facility] ([facility]) With O2 Body mass index (BMI) [Ratio] 27.6 kg/m2 27.6 k g/m2 [facility] ([facility]) Body height 61 [in_i] 61 [in_i] [facility] ([facility]) 5'1" Body weight 153.00 [lb_av] 153.00 [lb_av] [facility] T ([facility]) Oxygen saturation in Arterial blood by Pulse oximetry --post exerci se 85 % 85 % [facility] ([facility]) With 02 Systolic blood pressure 136 mm[Hg] 136 mm[Hg] M [facility] ([facility]) RT Arm Diastolic blood pressure 52 mm[Hg] 52 mm[Hg] [facility]) RT Arm Heart rate 80 /min 80 /min [facility]) Body mass index (BMI) [Ratio] 28.9 kg/m2 28.9 k g/m2 [facility] ([facility])
--- OUTSIDE RECORDS SUMMARY | 2021-09-12 08:46 | CCD | Continuity of Care Document ---
Author Author Zakiya Figueredo M.D. Organization Unknown Address [address] [facility] [address] [place] [address] Phone [phone] Care Team Providers Care Configuration Management Architect Name Role Phone Leslie Pinoian AURA AUTM [phone] Tammy Figueredo MD AUTM [phone] [facility] AUTM [phone] Problems Active Problems Provider Date Asthma without [...] Qnty Indications Ordering Provide r Date Nystatin [id number] Suspension Swish And Swallow Five Milliliters By [...] Of Flu Vaccine Inj ection Amanda Pino LOCKSTITCH SLEEVE SETTER 08/08/2020 Administration Of Flu Vaccine Inj ection Joanie Coffey FNP 09/19/2019 Administration Of Flu Vaccine Inj ection Joanie Coffey FNP 08/11/2018 Administration Of Flu Vaccine Inj ection Joanie Coffey,AURA 07/30/2017 Administration Of Flu Vaccine Inj ection Joanie Coffey FNP 09/03/2015 Administration Of Flu Vaccine Inj Joanie Khanna,LOCKSTITCH SLEEVE SETTER 10/22/2011 Immunizations CPT Code Status Date Vaccine Lot # [id number] Given 07/31/2021 Influenza Vaccin e Quadrivalent Preser/Antibiotic Free Im Use [id number] Given 08/08/2020 Influenza Vaccin e Quadrivalent Preser/Antibiotic Free Im Use [id number] 67723 Given 09/19/2019 Influenza Vaccin e Quadrivalent Preser/Antibiotic Free Im Use [id number] 03950 Given 08/11/2018 Influenza Virus Vaccine, Quadrivalent ([id number]), Derived From 4 Given 07/30/2017 Influenza Vaccin e Quadrivalent Preser/Antibiotic Free Im Use [id number] [id number] Given 12/02/2016 Prevnar 13 [id number] Given 09/03/2015 Fluvirin Virus Vaccine [id number] 01 05486 Given 01/07/2015 Pneumovax 23 [id number] Given 10/22/2011 Fluvirin Virus Vaccine Vital [...] H/L Range Note Laboratory test finding 07/31/2021 [facility] [address] [place] [address] [phone] Ferritin <pending> Laboratory test finding 07/31/2021 [facility] [employer] [facility] Cardroom Supervisor: [place] [address] [phone] Magnesium, Serum <pending> Laboratory test finding 07/31/2021 [facility] [facility] Cardroom Supervisor: [place] [address] [phone] TSH <pending> Basic Metabolic Profile 05/28/2021 [facility] [address] [place] [address] [phone] Glucose, Fasting 97 mg/dL Normal 70-100 Blood Urea Nitrogen 13 mg/dL Normal 7-18 Creatinine For GFR 0.44 mg/dL Low 0.55-1.30 Glomerular Filtration Rate > 60.0 Normal >45 1 Sodium Level 141 mEq/L Normal 136-145 Potassium Serum 4.0 mEq/L Normal 3.5-5.1 Chloride Level 101 mEq/L Normal 98-107 Carbon Dioxide Level 35 mEq/L High 21-32 Anion Gap 5 mEq/L Low 8-16 Calcium Level 9.5 mg/dL Normal 8.8-10.2 Complete Blood Count 05/13/2021 [facility] [employer] [facility] Cardroom Supervisor: [place] [address] [phone] WBC 13.4 x10*3/UL High 4.1 - 10.9 2 RBC 4.07 x10*6/UL Low 4.20 - 6.30 [...] 2.0 - 7.8 Comprehensive Chem Profile 05/13/2021 [facility] Cardroom Supervisor: Dr [place] [address] [phone] Glucose 88 mg/dL 74 - 99 3 BUN 19 mg/dL High 7 - 18 [...] mL/min >60 GFR >= 60 mL/min >60 4 Complete Blood Count 04/23/2021 [facility] [employer] [facility] [employer] Cardroom Supervisor: [place] [address] [phone] WBC 18.7 x10*3/UL High 4.1 - 10.9 5 RBC 4.14 x10*6/UL Low 4.20 - 6.30 [...] 2.0 - 7.8 Basic Metabolic Panel 04/23/2021 [facility] Cardroom Supervisor: Dr Peewe[place] [address] [phone] Glucose 91 mg/dL 74 - 99 6 BUN 24 mg/dL High 7 - 18 Creatinine 0.6 mg/dL 0.6 - 1.3 Sodium 141 mEq/L 136 - 145 Potassium 3.0 mEq/L Low 3.5 - 5.1 Chloride 97 mEq/L Low 98 - 107 Carbon Dioxide 43 mEq/L High 21 - 32 Calcium 9.5 mg/dL 8.5 - 10.1 GFR >= 60 mL/min >60 GFR >= 60 mL/min >60 7 1 Units are mL/min/1.73 m2 Chronic Kidney Disease Staging per NKF: Stage I & II GFR >=60 Normal to Mildly Decreased Stage III GFR 30-59 Moderately Decreased Stage IV GFR 15-29 Severely Decreased Stage V GFR <15 Very Little GFR Left ESRD GFR <15 on PRINTING PRESS MACHINE OPERATOR 2 NOTE: RESULT VERIFIED. 3 100-125 mg/dL PRE-DIABET ES/FASTING >126 mg/dL DIABETES/FASTING 4 CHRONIC KIDNEY DISEASE STAGI NG PER NKF STAGE I & II GFR >= 60 NORMAL TO MILDLY DECREASED STAGE III GFR 30-59 MODERATELY DECREASED STAGE IV GFR 15-29 SEVERELY DECREASED STAGE V GFR <15 VERY LITTLE GFR LEFT ESRD GFR <15 ON PRINTING PRESS MACHINE OPERATOR 5 NOTE: CBC VERIFIED 6 100-125 mg/dL PRE-DIABET ES/FASTING >126 mg/dL DIABETES/FASTING 7 CHRONIC KIDNEY DISEASE STAGI NG PER NKF STAGE I & II GFR >= 60 NORMAL TO MILDLY DECREASED STAGE III GFR 30-59 MODERATELY DECREASED STAGE IV GFR 15-29 SEVERELY DECREASED STAGE V GFR <15 VERY LITTLE GFR LEFT ESRD GFR <15 ON PRINTING PRESS MACHINE OPERATOR Procedures Date Code Description Status 05/14/2021 03753 Chronic Care Management Services Ea Addl 20 Min Completed 05/14/2021 36021 Chronic Care MGMT 20 Mins Clinical Staff Time Per Calendar Month Completed 05/13/2021 22217 Office/Outpatient Established Mo d MDM 30-39 Min Completed 04/23/2021 93952 Singer Cre SRV W/I 7 Days Of DC, C omm W/I 2 Dys Med Rec Completed 04/11/2021 17986 Chronic Care MGMT 20 Mins Clinical Staff Time Per Calendar Month Completed 03/24/2021 46214 Chronic Care MGMT 20 Mins Clinical Staff Time Per Calendar Month Completed 03/24/2021 92036 Chronic Care Management Services Ea Addl 20 Min Completed 02/26/2021 [id number] Colonoscopy Completed 02/24/2021 23170 Complex Chronic Care Management SVC 1St 60 Min Completed 02/24/2021 17631 Complex Chronic Care MGMT Servic e Ea Addl 30 Min Completed 08/28/2015 [id number] Mammogram Completed 03/09/2014 [id number] Mammogram Completed 01/27/2012 [id number] Mammogram Completed 01/20/2012 [id number] Colonoscopy Completed 12/28/2011 [id number] Mammogram Completed 12/18/2011 [id number] Bone Mineral Density Test Comple zoila 12/18/2011 [id number] Mammogram Completed 12/16/2009 [id number] Bone Mineral Density Test Comple zoila 12/16/2009 [id number] Mammogram Completed Medical Devices Description No Information Available Encounters Type Date Location Provider Dx Diagnosis Office Visit [facility] J[facility]1 Chronic obstructive pulmonar y disease w (acute) exacerbation F41.9 Anxiety disorder, unspecifie d E87.6 Hypokalemia I10 Essential (primary) hyperten sukhdev G25.81 Restless legs syndrome J30.9 Allergic rhinitis, unspecifi ed M85.80 Oth disrd of bone density an d structure, unspecified site K21.9 Gastro-esophageal reflux dis ease without esophagitis E78.00 Pure hypercholesterolemia, u nspecified Office Visit 04/23/2021 1:15p [facility] Z87.891 Personal history of [...] 9:45 am - Tammy Figueredo M.D. at [facility] 07/31/2021 - Tammy Figueredo M.D.* J44.9 [...] Novoa MD CONSULT FOR COPD Patient Notified [address] [facility] [address] [address] [facility] [address] [phone] Wes Nolan MD CONSULT FOR SCREENING COLONOSCOPY Patien t Notified 02/11/2021 [address] [facility] [address] [phone]
[2021-09-12] MEDS: COMBIVENT RESPIMAT 100-20MCG INHALER 4GM INH SCH ×2 (08:55→10:07)
[2021-09-12] MEDS ORDERED: dexameTHASONE 4 MG/ML 1ML VIAL (J1100 PER 1MG) IV ONE (08:55)
--- NOTE | 2021-09-12 09:43 | REP ---
INDICATION: Coronavirus workup. COMPARISON: 05/05/2021 the latest prior TECHNIQUE: Portable FINDINGS: The technique utilized in obtaining the radiograph has magnified the cardiac silhouette and accentuated the interstitial markings. There is cardiomegaly accentuated by technique. There is interstitial fibrotic change accentuated by technique. There is a left lower lobe pleural blebs status quo. No acute patchy parenchymal opacities or pleural effusions have developed. There is no change in the osseous structures. IMPRESSION: No significant change compared to the prior exam other than technique with findings as described above. <Electronically signed by José Miguel Vaca > 09/12/21 0906
--- OUTSIDE RECORDS SUMMARY | 2021-09-12 09:53 | CCD ---
Author Author [facility] Organization [facility] Address Unknown Phone Unavailable Care Team Providers Care Wringer Operator Name Role Phone Chelita Nolan MD Unavailable Unavailable Chelita Nolan MD Unavailable Unavailable Chelita Nolan MD Unavailable Unavailable Chleita Nolan MD Unavailable Unavailable Chelita Nolan MD [...] Chelita Nolan MD Unavailable Unavailable Alvarez, Amanda SEPTIC TECHNICIAN Unavailable Unavailable Alvarez, Amanda SEPTIC TECHNICIAN Unavailable Unavailable Alvarez, Amanda SEPTIC TECHNICIAN Unavailable Unavailable Alvarez, Amanda SEPTIC TECHNICIAN Unavailable Unavailable Alvarez, Amanda SEPTIC TECHNICIAN Unavailable Unavailable Alvarez, Amanda SEPTIC TECHNICIAN Unavailable Unavailable Alvarez, Amanda SEPTIC TECHNICIAN Unavailable Unavailable Alvarez, Amanda SEPTIC TECHNICIAN Unavailable Unavailable Alvarez, Amanda SEPTIC TECHNICIAN Unavailable Unavailable Alvarez, Amanda SEPTIC TECHNICIAN Unavailable Unavailable Alvarez, Amanda SEPTIC TECHNICIAN Unavailable Unavailable Alvarez, Amanda SEPTIC TECHNICIAN Unavailable Unavailable Alvarez, Amanda SEPTIC TECHNICIAN Unavailable Unavailable Alvarez, Amanda SEPTIC TECHNICIAN Unavailable Unavailable Alvarez, Amanda SEPTIC TECHNICIAN Unavailable Unavailable Alvarez, Amanda SEPTIC TECHNICIAN Unavailable Unavailable Alvarez, Amanda SEPTIC TECHNICIAN Unavailable Unavailable Alvarez, Amadna SEPTIC TECHNICIAN Unavailable Unavailable Alvarez, Amanda SEPTIC TECHNICIAN Unavailable Unavailable Alvarez, Amanda SEPTIC TECHNICIAN Unavailable Unavailable Alvarez, Amanda SEPTIC TECHNICIAN Unavailable Unavailable Alvarez, Amanda SEPTIC TECHNICIAN Unavailable Unavailable Alvarez, Amanda SEPTIC TECHNICIAN Unavailable Unavailable Alvarez, Amanda SEPTIC TECHNICIAN Unavailable Unavailable Alvarez, Amanda SEPTIC TECHNICIAN Unavailable Unavailable Alvarez, Amanda SEPTIC TECHNICIAN Unavailable Unavailable Alvarez, Amanda SEPTIC TECHNICIAN Unavailable Unavailable Alvarez, Amanda SEPTIC TECHNICIAN Unavailable Unavailable Alvarez, Amanda SEPTIC TECHNICIAN Unavailable Unavailable Alvarez, Amanda SEPTIC TECHNICIAN Unavailable Unavailable Alvarez, Amanda SEPTIC TECHNICIAN Unavailable Unavailable Alvarez, Amanda SEPTIC TECHNICIAN Unavailable Unavailable Alvarez, Amanda SEPTIC TECHNICIAN Unavailable Unavailable Alvarez, Amanda SEPTIC TECHNICIAN Unavailable Unavailable Alvarez, Amanda SEPTIC TECHNICIAN Unavailable Unavailable BeaAdina longoria MD Unavailable Unavailable BeaAidna chao MD Unavailable Unavailable BeaAdina MD Unavailable [...] is protected by Article 27-F of the [facility] Public Health law. If you continue you may have access to information: Regarding HIV / AIDS; Provided by facilities licensed or operated by the [facility] Office of Mental Health; or Provided by the [facility] Office for People With Developmental Disabilities. If such information is present, then the following [facility] mandated warning applies: This information has been [...] law may result in a fine or care home sentence or both. A general authorization for the release of medical or other information is NOT sufficient authorization for further disc losure. Family History Family Member Name Family Member Gender Family Member Status Date o f Status Description Data Source(s) Unknown Unknown Encounters Encounter Providers Location Date Indications Data Source(s ) Outpatient Attender: Tammy Lopez 09:30:00 AM EDT [facility] ([facility] ) Outpatient Attender: Tammy Lopez 11:30:00 AM EDT [facility] ([facility] ) Outpatient Attender: Justino Saab/Mauro/Mary haywood 05/03/2021 01:23:00 AM EDT [facility] ([facility] Outpatient Attender: Tammy Lopez 01:15:00 PM EDT [facility] ([facility] ) Outpatient Attender: FRANCESCO silva 02/13/2021 05:05:00 PM EDT [facility] ([facility]) Outpatient Attender: Wes Nolan MD Main Office 02/11/2021 10:45:00 AM EDT [facility] ([facility]) Office Visit Attender: Tammy Lopez 08:00:00 AM EDT [facility] ([facility] ) Outpatient Attender: Amanda Lopez 08:00:00 AM EDT [facility] ([facility] ) Immunizations Vaccine Date Status Description Data Source(s) Influenza, injectable, MDCK, preservative free, joan valent 07/31/2021 09:32:00 AM EDT completed [facility]) Influenza, injectable, MDCK, preservative free, joan valent 08/08/2020 08:03:00 AM EDT completed [facility]) Medications Medication Brand Name Start [...] DAILY DOSE = 2 TABLETS SOLD: 08/02/2021 Metagenomix 324 mg (65 mg iron) 08/02/2021 12:00:00 AM EDT tablet, delayed release (DR/EC) 41 TAKE ONE TABLET BY MOUTH EVERY DAY TAKE ONE TABL ET BY MOUTH EVERY DAY SOLD: 08/05/2021 [facility] ferrous sulfate 325 MG Delayed Release Oral Tablet Ferrous S ulfate 08/01/2021 12:00:00 AM EDT ORAL active M EDENT ([facility]) sennosides, FCI 8.6 MG Oral Tablet Senna 08/01/2021 12:00:00 AM EDT active [facility] ([facility]) Administration Of Flu Vaccine 07/31/2021 12:00:00 AM EDT completed [facility]) Medication administered onsite 4 mg [...] propionate 0.05 MG/ACTUAT Metered Dose Brayan al Marlin 50 mcg/actuation FLUTICASONE PROPIONATE 07/16/2021 12:00:00 AM [...] A DAY SOLD: 07/07/2021 [facility] Nystatin 629140 UNT/ML Oral Suspension Nystatin 05/20/2021 12:00:00 AM EDT active [facility] ([facility]) buspirone hydrochloride 15 MG Oral Tablet Buspirone HCL 05/13/2021 12:00:00 AM EDT ORAL active [facility] ([facility]) Alprazolam 0.25 MG Oral Tablet Alprazolam 05/13/2021 12:00:00 AM EDT ORAL active [facility] ([facility]) Potassium Chloride 10 MEQ Extended Release Oral Tablet Potassium Chloride Mami ER 04/24/2021 12:00:00 AM EDT active [facility] ([facility]) Losartan Potassium 100 MG Oral Tablet Losartan Potassium 12:00:00 AM EDT completed [facility] ([facility]) buspirone hydrochloride 7.5 MG Oral Tablet Buspirone HCL 04/23/2021 12:00:00 AM EDT ORAL completed [facility] ([facility]) buspirone hydrochloride 5 MG Oral Tablet Buspirone HCL 02/24/2021 12:00:00 AM EDT ORAL completed [facility] ([facility]) Amoxicillin 875 MG / Clavulanate 125 MG Oral Tablet Am oxicillin/Clavulanate Potassium 02/13/2021 12:00:00 AM EDT ORAL active [facility] ([facility]) Sutab Sutab 02/11/2021 12:00:00 AM EDT active [facility] ([facility]) Ondansetron 4 MG Oral Tablet Ondansetron HCL 02/06/2021 12:00:00 AM EDT active [facility] ([facility]) 02 2 Liters Nasal Can 01/28/2021 12:00:00 AM EDT completed [facility] ([facility]) Administration Of Flu Vaccine 08/08/2020 12:00:00 AM EDT completed [facility]) Medication administered onsite Insurance Providers Payer name Policy type / Coverage type Policy ID Covered alliance party ID Covered alliance party's relationship to licea Policy Licea Plan Information MEDICARE [id number] SP [id number] A Medicare Natl Govt Serv Medicare Primary [id number] Self [id number] Medicare Natl Govt Serv Medicare Primary [id number] Self MEDICARE [id number] Yaneth [id number] A MEDICARE [id number] SP [id number] Medicare Natl Govt Serv Medicare Primary [id number] Self [id number] Medicare Natl Govt Serv Medicare Primary [id number] Self [id number] Medicare Natl Govt Servic Medicare Primary [id number] Self [id number] Medicare Natl Govt Servic Medicare Primary [id number] Self [id number] Medicaid Medigap Part B [id number] Self [id number] MEDICAID [id number] SP [id number] Medicaid Medigap Part B [id number] Self MEDICARE C [id number] S [id number] A MEDICAID M [id number] S [id number] MEDICAID M [id number] S [id number] A MEDICARE [id number] SP [id number] MEDICARE COMPLETE [id number] SP [id number] [place] [id number] SP [id number] N MEDICARE COMPLETE [id number] SP [id number] MEDICARE COMPLETE [id number] SP [id number] EMEDNY [id number] SP [id number] Medicaid Medigap Part B [id number] Self [id number] Medicaid Medigap Part B [id number] Self [id number] Medicaid Medigap Part B [id number] [id number] Self [id number] Medicaid Medigap Part B [id number] Self [id number] Problems, Conditions, and Diagnoses Code Display Name Description Problem Type Effective Dates Data Source(s) [id number] Screening for malignant neoplasm of colo n Screening for malignant neoplasm of colon Problem 02/11/2021 12:00:00 AM EDT [facility] Surgeries/Procedures Procedure Description Date Indications Data Source(s) OFFICE OUTPATIENT VISIT 25 MINUTES 07/31/2021 12:00:00 AM EDMichel SAXENA ([facility]) Chronic Care Management Services Ea Addl 20 Min 2020 12:00:00 AM EDMichel SAXENA ([facility]) Chronic Care MGMT 20 Mins Clinical Staff Time Per Calendar M onth 05/14/2021 12:00:00 AM MIKE SAXENA ([facility] ) OFFICE OUTPATIENT VISIT 25 MINUTES 05/13/2021 12:00:00 AM EDT [facility] ([facility]) INITIAL HOSPITAL CARE/DAY 70 MINUTES 05/03/2021 12:00: 00 AM EDT [facility] ([facility] ) Singer Cre SRV W/I 7 Days Of DC, Comm W/I 2 Dys Med Rec 04/23/2021 12:00:00 AM EDT [facility] ([facility] ) Chronic Care MGMT 20 Mins Clinical Staff Time Per Calendar M [facility] 04/11/2021 12:00:00 AM EDT [facility] ([facility] ) Chronic Care Management Services Ea Addl 20 Min 2020 12:00:00 AM EDT [facility] ([facility]) Chronic Care MGMT 20 Mins Clinical Staff Time Per Calendar M [facility] 03/24/2021 12:00:00 AM EDT [facility] ([facility] ) Colonoscopy 02/26/2021 12:00:00 AM EDT M EDENT ([facility]) Complex Chronic Care MGMT Service Ea Addl 30 Min 02/24 12:00:00 AM EDT [facility] ([facility]) Complex Chronic Care Management SVC 1St 60 Min 021 12:00:00 AM EDT [facility] ([facility]) PERIODIC PREVENTIVE MED EST PATIENT 65YRS&> 01/28/2021 12:00:00 AM EDT [facility] ([facility]) Complex Chronic Care Management SVC 1St 60 Min 021 12:00:00 AM EDT [facility] ([facility]) Complex Chronic Care MGMT Service Ea Addl 30 Min 01/20 12:00:00 AM EDT [facility] ([facility]) Chronic Care MGMT 20 Mins Clinical Staff Time Per Calendar M [facility] 11/27/2020 12:00:00 AM EST [facility] ([facility] ) Results ID Date Data Source [id number] 07/31/2021 10:10:00 AM EDT [facility] ([facility]) Name Value Range Interpretation Code Description Data Pamella rce(s) Supporting Document(s) Ferritin [Mass/volume] in Serum or Plasma 21 ng/mL 8-252 [facility] ([facility]) ID Date Data Source [id number] 07/31/2021 10:06:00 AM EDT [facility] ([facility]) Name Value Range Interpretation Code Description Data Pamella rce(s) Supporting Document(s) Thyrotropin [Units/volume] in Serum or Plasma by Detec tion limit <= 0.05 mIU/L 1.17 uIU/mL 0.36-3.74 [facility] ([facility] ) ID Date Data Source [id number] 07/31/2021 10:06:00 AM EDT [facility] ([facility]) Name Value Range Interpretation Code Description Data Pamella rce(s) Supporting Document(s) Urea nitrogen [Mass/volume] in Serum or Plasma 19 mg/dL 7-18 [facility] ([facility]) Glucose [Mass/volume] in Serum or Plasma 89 mg/dL 74-99 [facility] ([facility]) 100-125 mg/dL PRE-DIABETES/FASTING >126 mg/dL DIABETES/FASTING Creatinine 0.5 mg/dL 0.6-1.3 [facility] Sodium [Moles/volume] in Serum or Plasma 140 meq/L 136-145 [facility] ([facility]) Potassium [Moles/volume] in Serum or Plasma 4.1 meq/L 3.5-5.1 [facility] ([facility]) Chloride [Moles/volume] in Serum or Plasma 101 meq/L 98-107 [facility] ([facility]) Carbon dioxide, total [Moles/volume] in Serum or Plasma 36 meq/L 21 -32 [facility] ([facility]) Calcium [Mass/volume] in Serum or Plasma 9.3 mg/dL 8.5-10.1 [facility] ([facility]) Glomerular filtration rate/1.73 sq M pre dicted among non-blacks [Volume Rate/Area] in Serum or Plasma by Creatinine-based formula (MDRD) Laboratory test result [facility] Glomerular filtration rate/1.73 sq M pre dicted among blacks [Volume Rate/Area] in Serum or Plasma by Creatinine-based formula (MDRD) Laboratory test result [facility] <content>CHRONIC KIDNEY DISEASE STAGING PER NKF</content>
<content></content>
<content>STAGE I & II GFR >= 60 NORMAL TO MILDLY DECREASED</content>
<content>STAGE III GFR 30-59 MODERATELY DECREASED</content>
<content>STAGE IV GFR 15-29 SEVERELY DECREASED</content>
<content>STAGE V GFR <15 VERY LITTLE GFR LEFT</content>
<content>ESRD GFR <15 ON FARM MANAGEMENT AGENT</content>
<content></content> ID Date Data Source [id number] 07/31/2021 10:06:00 AM EDT [facility] ([facility]) Name Value Range Interpretation Code Description Data Pamella rce(s) Supporting Document(s) Magnesium 1.8 mg/dL 1.8-2.4 [facility] ID Date Data Source [id number] 07/31/2021 10:06:00 AM EDT [facility] ([facility]) Name Value Range Interpretation Code Description Data Pamella rce(s) Supporting Document(s) Leukocytes [#/volume] in Blood by Automated count 9.6 x10*3/UL 4.1-10 .9 [facility] Hemoglobin [Mass/volume] in Blood 12.3 g/dL 12.0-18.0 [facility] Erythrocytes [#/volume] in Blood by Automated count 4.18 x10*6/UL 4.2 0-6.30 [facility] Hematocrit [Volume Fraction] of Blood by Automated count 34.9 % 3 7.0-51.0 [facility] ([facility]) MCH 29.5 pg 26.0-32.0 [facility] ([facility]) MCHC 35.4 g/dL 31.0-38.0 [facility] ([facility]) MCV 83.4 fL 80.0-97.0 [facility] ([facility]) Erythrocyte distribution width [Ratio] by Automated count 13.0 % 11.6-13.7 [facility] ([facility]) MPV 7.7 FL 7.8-11.0 [facility]) Platelets [#/volume] in Blood by Automated count 251 x10*3/UL 140-440 [facility] ([facility]) Neut % 74.4 % 37.0-92.0 [facility]) Mid % 5.1 % 1.7-9.3 [facility] Lymph % 20.5 % 10.0-58.5 [facility]) Mid # 0.5 x10*3/UL 0.1-0.6 [facility] ([facility]) Neut # 7.2 x10*3/UL 2.0-7.8 [facility] ([facility]) Lymph # 1.9 x10*3/UL 0.6-4.1 [facility] ([facility]) ID Date Data Source [id number] 05/28/2021 12:30:00 PM EDT [facility] ([facility]) Name Value Range Interpretation Code Description Data Pamella rce(s) Supporting Document(s) Glucose, Fasting 97 mg/dL 70-100 [facility] ([facility]) Blood Urea Nitrogen 13 mg/dL 7-18 [facility] ([facility]) Creatinine For GFR 0.44 mg/dL 0.55-1.30 [facility] ([facility]) Glomerular Filtration Rate Laboratory test result [facility] ([facility]) <content>Units are mL/min/1.73 m2</content>
<content></content>
<content>Chronic Kidney Disease Staging per NKF:</content>
<content></content>
<content>Stage I & II GFR >=60 Normal to Mildly Decreased</content>
<content>Stage III GFR 30- 59 Moderately Decreased</content>
<content>Stage IV GFR 15-29 Severely Decreased</content>
<content>Stage V GFR <15 Very Little GFR Left</content>
<content>ESRD GFR <15 on FARM MANAGEMENT AGENT</content>
<content></content> Sodium Level 141 meq/L 136-145 [facility] ([facility]) Potassium Serum 4.0 meq/L 3.5-5.1 [facility] ([facility]) Chloride Level 101 meq/L 98-107 [facility] ([facility]) Carbon Dioxide Level 35 meq/L 21-32 [facility] Anion Gap 5 meq/L 8-16 [facility] Calcium Level 9.5 mg/dL 8.8-10.2 [facility] ([facility]) ID Date Data Source [id number] 05/13/2021 11:56:00 AM EDT [facility] ([facility]) Name Value Range Interpretation Code Description Data Pamella rce(s) Supporting Document(s) Glucose [Mass/volume] in Serum or Plasma 88 mg/dL 74-99 [facility] ([facility]) 100-125 mg/dL PRE-DIABETES/FASTING >126 mg/dL DIABETES/FASTING Urea nitrogen [Mass/volume] in Serum or Plasma 19 mg/dL 7-18 [facility] ([facility]) Creatinine 0.5 mg/dL 0.6-1.3 [facility] ([facility]) Sodium [Moles/volume] in Serum or Plasma 143 meq/L 136-145 [facility] ([facility]) Potassium [Moles/volume] in Serum or Plasma 3.7 meq/L 3.5-5.1 [facility] ([facility]) Chloride [Moles/volume] in Serum or Plasma 102 meq/L 98-107 [facility] ([facility]) Carbon dioxide, total [Moles/volume] in Serum or Plasma 35 meq/L 21 -32 [facility] ([facility]) Calcium [Mass/volume] in Serum or Plasma 9.5 mg/dL 8.5-10.1 [facility] ([facility]) Alkaline phosphatase isoenzyme [Units/volume] in Serum or Pl asma 90 mg/dL 46-116 [facility] ([facility]) Total Bilirubin 0.9 mg/dL 0.2-1.0 [facility] ([facility]) Aspartate aminotransferase [Enzymatic activity/volume] in Serum or Plasma 17 U/L 15-37 [facility] ([facility] ) Alanine aminotransferase [Enzymatic activity/volume] in Seru m or Plasma 30 U/L 12-78 [facility]) Albumin [Mass/volume] in Serum or Plasma 3.4 g/dL 3.4-5.0 [facility]) Proteinase 3 Ab [Units/volume] in Serum 6.5 g/dL 6.4-8.2 [facility] ([facility]) A/G Ratio 1.10 CALC 1.00-1.90 [facility]) Glomerular filtration rate/1.73 sq M pre dicted among non-blacks [Volume Rate/Area] in Serum or Plasma by Creatinine-based formula (MDRD) Laboratory test result [facility] ([facility] Glomerular filtration rate/1.73 sq M pre dicted among blacks [Volume Rate/Area] in Serum or Plasma by Creatinine-based formula (MDRD) Laboratory test result [facility] ([facility] <content>CHRONIC KIDNEY DISEASE STAGING PER NKF</content>
<content></content>
<content>STAGE I & II GFR >= 60 NORMAL TO MILDLY DECREASED</content>
<content>STAGE III GFR 30-59 MODERATELY DECREASED</content>
<content>STAGE IV GFR 15-29 SEVERELY DECREASED</content>
<content>STAGE V GFR <15 VERY LITTLE GFR LEFT</content>
<content>ESRD GFR <15 ON FARM MANAGEMENT AGENT</content>
<content></content> ID Date Data Source [id number] 05/13/2021 11:56:00 AM EDT [facility]) Name Value Range Interpretation Code Description Data Pamella rce(s) Supporting Document(s) Leukocytes [#/volume] in Blood by Automated count 13.4 x10*3/UL 4.1-1 0.9 [facility] ([facility]) NOTE: RESULT VERIFIED. Erythrocytes [#/volume] in Blood by Automated count 4.07 x10*6/UL 4.2 0-6.30 [facility] ([facility]) Hemoglobin [Mass/volume] in Blood 12.2 g/dL 12.0-18.0 [facility] ([facility]) Hematocrit [Volume Fraction] of Blood by Automated count 35.7 % 3 7.0-51.0 [facility] ([facility]) MCH 30.0 pg 26.0-32.0 [facility] MCV 87.8 fL 80.0-97.0 [facility] Platelets [#/volume] in Blood by Automated count 351 x10*3/UL 140-440 [facility] ([facility]) MCHC 34.1 g/dL 31.0-38.0 [facility] Erythrocyte distribution width [Ratio] by Automated count 13.6 % 11.6-13.7 [facility] ([facility]) MPV 7.2 FL 7.8-11.0 [facility] Lymph % 23.5 % 10.0-58.5 [facility] Mid % 5.9 % 1.7-9.3 [facility] Lymph # 3.1 x10*3/UL 0.6-4.1 [facility] ([facility]) Neut % 70.6 % 37.0-92.0 [facility] Mid # 0.8 x10*3/UL 0.1-0.6 [facility] ([facility]) Neut # 9.5 x10*3/UL 2.0-7.8 [facility] ([facility]) ID Date Data Source [id number] 05/02/2021 12:13:00 PM EDT [facility] Name Value Range Interpretation Code Description Data Pamella rce(s) Supporting Document(s) SARS-CoV-2 (COVID 19) NEGATIVE - SARS-CoV-2 (COVID19) [facility] This lab was ordered by [facility] a nd reported by [facility]. ID Date Data Source [id number] 05/01/2021 11:54:00 AM EDT [facility] Name Value Range Interpretation Code Description Data Pamella rce(s) Supporting Document(s) SARS-CoV-2 (COVID 19) NEGATIVE - SARS-CoV-2 (COVID19) [facility] This lab was ordered by [facility] a nd reported by [facility]. ID Date Data Source [id number] 04/29/2021 03:20:00 PM EDT [facility] Name Value Range Interpretation Code Description Data Pamella rce(s) Supporting Document(s) SARS-CoV-2 (COVID 19) NEGATIVE - SARS-CoV-2 (COVID19) [facility] This lab was ordered by [facility] a nd reported by [facility]. ID Date Data Source [id number] 04/23/2021 01:03:00 PM EDT [facility] ([facility]) Name Value Range Interpretation Code Description Data Pamella rce(s) Supporting Document(s) Glucose [Mass/volume] in Serum or Plasma 91 mg/dL 74-99 [facility] ([facility]) 100-125 mg/dL PRE-DIABETES/FASTING >126 mg/dL DIABETES/FASTING Urea nitrogen [Mass/volume] in Serum or Plasma 24 mg/dL 7-18 [facility] ([facility]) Creatinine 0.6 mg/dL 0.6-1.3 [facility] Potassium [Moles/volume] in Serum or Plasma 3.0 meq/L 3.5-5.1 [facility] ([facility]) Sodium [Moles/volume] in Serum or Plasma 141 meq/L 136-145 [facility] ([facility]) Chloride [Moles/volume] in Serum or Plasma 97 meq/L 98-107 [facility] ([facility]) Carbon dioxide, total [Moles/volume] in Serum or Plasma 43 meq/L 21 -32 [facility] ([facility]) Calcium [Mass/volume] in Serum or Plasma 9.5 mg/dL 8.5-10.1 [facility] ([facility]) Glomerular filtration rate/1.73 sq M pre dicted among blacks [Volume Rate/Area] in Serum or Plasma by Creatinine-based formula (MDRD) Laboratory test result [facility] ([facility]) <content>CHRONIC KIDNEY DISEASE STAGING PER NKF</content>
<content></content>
<content>STAGE I & II GFR >= 60 NORMAL TO MILDLY DECREASED</content>
<content>STAGE III GFR 30-59 MODERATELY DECREASED</content>
<content>STAGE IV GFR 15-29 SEVERELY DECREASED</content>
<content>STAGE V GFR <15 VERY LITTLE GFR LEFT</content>
<content>ESRD GFR <15 ON FARM MANAGEMENT AGENT</content>
<content></content> Glomerular filtration rate/1.73 sq M pre dicted among non-blacks [Volume Rate/Area] in Serum or Plasma by Creatinine-based formula (MDRD) Laboratory test result [facility] ([facility] ) ID Date Data Source [id number] 04/23/2021 01:03:00 PM EDT [facility] [facility] Name Value Range Interpretation Code Description Data Pamella rce(s) Supporting Document(s) Leukocytes [#/volume] in Blood by Automated count 18.7 x10*3/UL 4.1-1 0.9 [facility] ([facility]) NOTE: CBC VERIFIED Erythrocytes [#/volume] in Blood by Automated count 4.14 x10*6/UL 4.2 0-6.30 [facility] ([facility]) Hemoglobin [Mass/volume] in Blood 12.2 g/dL 12.0-18.0 [facility] ([facility] Hematocrit [Volume Fraction] of Blood by Automated count 36.2 % 3 7.0-51.0 [facility] MCH 29.5 pg 26.0-32.0 [facility] MCV 87.5 fL 80.0-97.0 [facility]) Erythrocyte distribution width [Ratio] by Automated count 13.0 % 11.6-13.7 [facility]) MCHC 33.8 g/dL 31.0-38.0 [facility] ([facility]) Platelets [#/volume] in Blood by Automated count 523 x10*3/UL 140-440 [facility] ([facility]) MPV 7.2 FL 7.8-11.0 [facility] Mid % 5.6 % 1.7-9.3 [facility] Lymph % 24.9 % 10.0-58.5 [facility] [place] [facility] Mid # 1.1 x10*3/UL 0.1-0.6 [facility] ([facility]) Neut % 69.5 % 37.0-92.0 [facility] [place] [facility] Lymph # 4.6 x10*3/UL 0.6-4.1 [facility] ([facility]) Neut # 13.0 x10*3/UL 2.0-7.8 [facility] ([facility]) ID Date Data Source [id number] 04/17/2021 01:54:00 PM EDT [facility] Name Value Range Interpretation Code Description Data Pamella rce(s) Supporting Document(s) SARS coronavirus 2 RNA [Presence] in Res piratory specimen by ALEENA with probe detection NEGATIVE [facility] This lab was ordered by [facility] a nd reported by [facility]. ID Date Data Source [id number] 02/21/2021 11:55:00 AM EDT [facility] Name Value Range Interpretation Code Description Data Pamella rce(s) Supporting Document(s) SARS-CoV-2 (COVID-19) RNA [Presence] in Respiratory specimen by ALEENA with probe detection Not Detected [facility] This lab was ordered by [facility] and reported by [email or web address] ID Date Data Source [id number] 01/28/2021 09:03:00 AM EDT [facility] ([facility]) Name Value Range Interpretation Code Description Data Pamella rce(s) Supporting Document(s) Iron (Fe) 58 ug/dL 50-170 [facility] [facility] Total Iron Binding Capacity 326 ug/dL 250-450 [facility] ([facility]) Percent Saturation 17.8 % 13.2-45.0 [facility] ([facility]) ID Date Data Source [id number] 01/28/2021 09:03:00 AM EDT [facility] ([facility]) Name Value Range Interpretation Code Description Data Pamella rce(s) Supporting Document(s) Ferritin [Mass/volume] in Serum or Plasma 70 ng/mL 8-252 [facility] ([facility]) ID Date Data Source [id number] 01/28/2021 09:02:00 AM EDT [facility] ([facility]) Name Value Range Interpretation Code Description Data Pamella rce(s) Supporting Document(s) Thyrotropin [Units/volume] in Serum or Plasma by Detec tion limit <= 0.05 mIU/L 1.54 uIU/mL 0.36-3.74 [facility] ([facility] ) ID Date Data Source [id number] 01/28/2021 09:02:00 AM EDT [facility] ([facility]) Name Value Range Interpretation Code Description Data Pamella rce(s) Supporting Document(s) Cholesterol [Mass/volume] in Serum or Plasma 194 mg/dL 131-200 [facility] ([facility]) Triglyceride [Mass/volume] in Serum or Plasma 211 mg/dL 30-150 [facility] ([facility]) Cholesterol in HDL [Mass/volume] in Serum or Plasma 58 mg/dL 35-60 [facility] ([facility]) Cholesterol in LDL [Mass/volume] in Serum or Plasma by calcu lation 94 CALC 50-159 [facility] ([facility]) ID Date Data Source [id number] 01/28/2021 09:02:00 AM EDT [facility] ([facility]) Name Value Range Interpretation Code Description Data Pamella rce(s) Supporting Document(s) Glucose [Mass/volume] in Serum or Plasma 101 mg/dL 74-99 [facility] ([facility]) 100-125 mg/dL PRE-DIABETES/FASTING >126 mg/dL DIABETES/FASTING Creatinine 0.5 mg/dL 0.6-1.3 [facility] Urea nitrogen [Mass/volume] in Serum or Plasma 15 mg/dL 7-18 [facility] ([facility]) Sodium [Moles/volume] in Serum or Plasma 142 meq/L 136-145 [facility] ([facility]) Chloride [Moles/volume] in Serum or Plasma 100 meq/L 98-107 [facility] ([facility]) Potassium [Moles/volume] in Serum or Plasma 4.0 meq/L 3.5-5.1 [facility] ([facility]) Carbon dioxide, total [Moles/volume] in Serum or Plasma 33 meq/L 21 -32 [facility] ([facility]) Alkaline phosphatase isoenzyme [Units/volume] in Serum or Pl asma 124 mg/dL 46-116 [facility] ([facility]) Calcium [Mass/volume] in Serum or Plasma 9.0 mg/dL 8.5-10.1 [facility] ([facility]) Total Bilirubin 0.5 mg/dL 0.2-1.0 [facility] ([facility]) Aspartate aminotransferase [Enzymatic activity/volume] in Serum or Plasma 15 U/L 15-37 [facility] ([facility] ) Albumin [Mass/volume] in Serum or Plasma 3.9 g/dL 3.4-5.0 [facility] ([facility]) Alanine aminotransferase [Enzymatic activity/volume] in Seru m or Plasma 18 U/L 12-78 [facility] ([facility]) A/G Ratio 1.05 CALC 1.00-1.90 [facility] ([facility]) Proteinase 3 Ab [Units/volume] in Serum 7.6 g/dL 6.4-8.2 [facility] ([facility]) Glomerular filtration rate/1.73 sq M pre dicted among blacks [Volume Rate/Area] in Serum or Plasma by Creatinine-based formula (MDRD) Laboratory test result [facility] ([facility]) <content>CHRONIC KIDNEY DISEASE STAGING PER NKF</content>
<content></content>
<content>STAGE I & II GFR >= 60 NORMAL TO MILDLY DECREASED</content>
<content>STAGE III GFR 30-59 MODERATELY DECREASED</content>
<content>STAGE IV GFR 15-29 SEVERELY DECREASED</content>
<content>STAGE V GFR <15 VERY LITTLE GFR LEFT</content>
<content>ESRD GFR <15 ON FARM MANAGEMENT AGENT</content>
<content></content> Glomerular filtration rate/1.73 sq M pre dicted among non-blacks [Volume Rate/Area] in Serum or Plasma by Creatinine-based formula (MDRD) Laboratory test result [facility] ([facility] ) ID Date Data Source [id number] 01/28/2021 09:02:00 AM EDT [facility] Name Value Range Interpretation Code Description Data Pamella rce(s) Supporting Document(s) Creatine kinase [Enzymatic activity/volume] in Serum or Plasma 23 U /L 26-192 [facility] Magnesium 1.8 mg/dL 1.8-2.4 [facility] ([facility]) ID Date Data Source [id number] 01/28/2021 09:02:00 AM EDT [facility] Name Value Range Interpretation Code Description Data Pamella rce(s) Supporting Document(s) Leukocytes [#/volume] in Blood by Automated count 11.1 x10*3/UL 4.1-1 0.9 [facility] Erythrocytes [#/volume] in Blood by Automated count 3.69 x10*6/UL 4.2 0-6.30 [facility] ([facility] Hemoglobin [Mass/volume] in Blood 11.3 g/dL 12.0-18.0 [facility] ([facility] MCV 87.4 fL 80.0-97.0 [facility] ([facility]) Hematocrit [Volume Fraction] of Blood by Automated count 32.2 % 3 7.0-51.0 [facility] MCH 30.6 pg 26.0-32.0 [facility] ([facility]) MCHC 35.0 g/dL 31.0-38.0 [facility] ([facility]) Erythrocyte distribution width [Ratio] by Automated count 13.3 % 11.6-13.7 [facility] ([facility]) Platelets [#/volume] in Blood by Automated count 300 x10*3/UL 140-440 [facility]) MPV 7.4 FL 7.8-11.0 [facility] [facility] Lymph % 18.6 % 10.0-58.5 [facility] ([place] [facility] Mid % 4.7 % 1.7-9.3 [facility] ([place] [facility] Lymph # 2.0 x10*3/UL 0.6-4.1 [facility] ([facility]) Neut % 76.7 % 37.0-92.0 [facility] [facility] Neut # 8.5 x10*3/UL 2.0-7.8 [facility] ([facility]) Mid # 0.6 x10*3/UL 0.1-0.6 [facility] ([facility]) ID Date Data Source [id number] 08/08/2020 07:42:00 AM EDT [facility] ([facility]) Name Value Range Interpretation Code Description Data Pamella rce(s) Supporting Document(s) Thyrotropin [Units/volume] in Serum or Plasma by Detec tion limit <= 0.05 mIU/L 2.10 uIU/mL 0.36-3.74 [facility] ([facility] ) ID Date Data Source [id number] 08/08/2020 07:42:00 AM EDT [facility] ([facility]) Name Value Range Interpretation Code Description Data Pamella rce(s) Supporting Document(s) Cholesterol [Mass/volume] in Serum or Plasma 218 mg/dL 131-200 [facility] ([facility]) Triglyceride [Mass/volume] in Serum or Plasma 146 mg/dL 30-150 [facility] ([facility]) Cholesterol in LDL [Mass/volume] in Serum or Plasma by calcu lation 125 CALC 50-159 [facility] ([facility]) Cholesterol in HDL [Mass/volume] in Serum or Plasma 64 mg/dL 35-60 [facility] ([facility]) ID Date Data Source [id number] 08/08/2020 07:42:00 AM EDT [facility] ([facility]) Name Value Range Interpretation Code Description Data Pamella rce(s) Supporting Document(s) Glucose [Mass/volume] in Serum or Plasma 115 mg/dL 74-99 [facility] ([facility]) 100-125 mg/dL PRE-DIABETES/FASTING >126 mg/dL DIABETES/FASTING Sodium [Moles/volume] in Serum or Plasma 141 meq/L 136-145 [facility] ([facility]) Creatinine 0.7 mg/dL 0.6-1.3 [facility] ([facility]) Urea nitrogen [Mass/volume] in Serum or Plasma 21 mg/dL 7-18 [facility] ([facility]) Potassium [Moles/volume] in Serum or Plasma 4.0 meq/L 3.5-5.1 [facility] ([facility]) Chloride [Moles/volume] in Serum or Plasma 100 meq/L 98-107 [facility] ([facility]) Carbon dioxide, total [Moles/volume] in Serum or Plasma 38 meq/L 21 -32 [facility] ([facility]) Calcium [Mass/volume] in Serum or Plasma 9.7 mg/dL 8.5-10.1 [facility] ([facility]) Alkaline phosphatase isoenzyme [Units/volume] in Serum or Pl asma 130 mg/dL 46-116 [facility] ([facility]) NOTE: RESULT VERIFIED. Alanine aminotransferase [Enzymatic activity/volume] in Seru m or Plasma 22 U/L 12-78 [facility] ([facility]) Aspartate aminotransferase [Enzymatic activity/volume] in Serum or Plasma 15 U/L 15-37 [facility] ([facility] ) Total Bilirubin 0.6 mg/dL 0.2-1.0 [facility] ([facility]) Albumin [Mass/volume] in Serum or Plasma 3.9 g/dL 3.4-5.0 [facility] ([facility]) A/G Ratio 0.98 CALC 1.00-1.90 [facility] ([facility]) Proteinase 3 Ab [Units/volume] in Serum 7.9 g/dL 6.4-8.2 [facility] ([facility]) Glomerular filtration rate/1.73 sq M pre dicted among non-blacks [Volume Rate/Area] in Serum or Plasma by Creatinine-based formula (MDRD) Laboratory test result [facility] ([facility] ) Glomerular filtration rate/1.73 sq M pre dicted among blacks [Volume Rate/Area] in Serum or Plasma by Creatinine-based formula (MDRD) Laboratory test result [facility] ([facility]) <content>CHRONIC KIDNEY DISEASE STAGING PER NKF</content>
<content></content>
<content>STAGE I & II GFR >= 60 NORMAL TO MILDLY DECREASED</content>
<content>STAGE III GFR 30-59 MODERATELY DECREASED</content>
<content>STAGE IV GFR 15-29 SEVERELY DECREASED</content>
<content>STAGE V GFR <15 VERY LITTLE GFR LEFT</content>
<content>ESRD GFR <15 ON FARM MANAGEMENT AGENT</content>
<content></content> ID Date Data Source [id number] 08/08/2020 07:42:00 AM EDT [facility]) Name Value Range Interpretation Code Description Data Pamella rce(s) Supporting Document(s) Leukocytes [#/volume] in Blood by Automated count 11.8 x10*3/UL 4.1-1 0.9 [facility] ([facility]) NOTE: RESULT VERIFIED. Erythrocytes [#/volume] in Blood by Automated count 4.22 x10*6/UL 4.2 0-6.30 [facility]) Hemoglobin [Mass/volume] in Blood 12.6 g/dL 12.0-18.0 [facility] ([facility]) MCV 85.7 fL 80.0-97.0 [facility] [place] [facility]) Hematocrit [Volume Fraction] of Blood by Automated count 36.2 % 3 7.0-51.0 [facility]) Erythrocyte distribution width [Ratio] by Automated count 12.8 % 11.6-13.7 [facility] ([facility]) MCHC 34.9 g/dL 31.0-38.0 [facility] ([facility]) MCH 29.9 pg 26.0-32.0 [facility] ([facility]) Platelets [#/volume] in Blood by Automated count 336 x10*3/UL 140-440 [facility] ([facility]) MPV 7.8 FL 7.8-11.0 [facility] ([facility] [place] [facility]) Mid % 5.9 % 1.7-9.3 [facility] ([facility]) Lymph % 23.5 % 10.0-58.5 [facility] ([facility]) Mid # 0.8 x10*3/UL 0.1-0.6 [facility] ([facility]) Lymph # 2.7 x10*3/UL 0.6-4.1 [facility] ([facility]) Neut % 70.6 % 37.0-92.0 [facility] ([facility] [place] [facility]) Neut # 8.3 x10*3/UL 2.0-7.8 [facility] ([facility]) Procedure Social History Code Duration Value Status Description Data Source(s ) Smoking 02/13/2021 12:00:00 AM EDT Patient is a former smoker completed Patient is a former smoker [facility] ([facility], [facility]) Vital Signs ID Date Data Source UNK Name Value Range Interpretation Code Description Data Source(s) Systolic blood pressure 126 mm[Hg] 126 mm[Hg] M [facility] ([facility]) RT Arm Diastolic blood pressure 64 mm[Hg] 64 mm[Hg] [facility] ([facility]) RT Arm Heart rate 77 /min 77 /min [facility] ([facility]) Body height 61 [in_i] 61 [in_i] [facility] ([facility]) 5'1" Body weight 143.00 [lb_av] 143.00 [facility] Oxygen saturation in Arterial blood by Pulse oximetry 93 % 93 % [facility] ([facility]) With O2 Body mass index (BMI) [Ratio] 27.0 kg/m2 27.0 k g/m2 [facility] ([facility]) Body height 61 [in_i] 61 [in_i] [facility] ([facility]) 5'1" Heart rate 78 /min 78 /min [facility] ([facility]) Systolic blood pressure 110 mm[Hg] 110 mm[Hg] [facility] Diastolic blood pressure 66 mm[Hg] 66 mm[Hg] [facility] ([facility]) Body weight 134.00 [lb_av] 134.00 [lb_av] [facility] ([facility]) Oxygen saturation in Arterial blood by Pulse oximetry 90 % 90 % [facility]) With O2, 94% Body mass index (BMI) [Ratio] 25.3 kg/m2 25.3 k g/m2 [facility]) Body height 61 [in_i] 61 [in_i] [facility] ([facility]) 5'1" Heart rate 76 /min 76 /min [facility] Oxygen saturation in Arterial blood by Pulse oximetry --post exerci se 86 % 86 % [facility]) With 02 Body mass index (BMI) [Ratio] 27.0 kg/m2 27.0 k g/m2 [facility]) Systolic blood pressure 120 mm[Hg] 120 mm[Hg] [facility] LT Arm Diastolic blood pressure 70 mm[Hg] 70 mm[Hg] [facility]) LT Arm Body weight 143.00 [lb_av] 143.00 [lb_av] [facility] ([facility]) Oxygen saturation in Arterial blood by Pulse oximetry 91 % 91 % [facility]) Systolic blood pressure 133 mm[Hg] 133 mm[Hg] [facility]) Diastolic blood pressure 76 mm[Hg] 76 mm[Hg] [facility] ([facility], [facility]) Heart rate 75 /min 75 /min [facility], [facility]) Respiratory rate 20 /min 20 /min [facility] ( [facility], [facility]) Oxygen saturation in Arterial blood by Pulse oximetry 88 % 88 % [facility] ([facility], [facility]) Body temperature 97.8 [degF] 97.8 [degF] [facility] ([facility], [facility]) Body weight 147.00 [lb_av] 147.00 [lb_av] [facility] ([place] [facility]) Body height 61 [in_i] 61 [in_i] [facility]) 5'1" Body mass index (BMI) [Ratio] 27.8 kg/m2 27.8 k g/m2 [facility] ([facility], [facility]) Systolic blood pressure 130 mm[Hg] 130 mm[Hg] [facility] Body height 61 [in_i] 61 [in_i] [facility] 5'1" Body weight 147.00 [lb_av] 147.00 [lb_av] [facility] ([facility]) Diastolic blood pressure 64 mm[Hg] 64 mm[Hg] [facility] ([facility]) Heart rate 77 /min 77 /min [facility] ([facility]) Body mass index (BMI) [Ratio] 27.8 kg/m2 27.8 k g/m2 [facility] ([facility]) Body weight 66.679 kg 66.679 kg [facility] ([facility] Body temperature 97.3 [degF] 97.3 [degF] [facility] ([facility]) Body weight 146.00 [lb_av] 146.00 [lb_av] [facility] ([facility]) Body height 61 [in_i] 61 [in_i] [facility]) 5'1" Diastolic blood pressure 62 mm[Hg] 62 mm[Hg] [facility]) Heart rate 78 /min 78 /min [facility]) Systolic blood pressure 128 mm[Hg] 128 mm[Hg] [facility] Oxygen saturation in Arterial blood by Pulse oximetry 93 % 93 % [facility]) With O2 Body mass index (BMI) [Ratio] 27.6 kg/m2 27.6 k g/m2 [facility]) Body height 61 [in_i] 61 [in_i] [facility]) 5'1" Body weight 153.00 [lb_av] 153.00 [lb_av] [facility] ([facility]) Oxygen saturation in Arterial blood by Pulse oximetry --post exerci se 85 % 85 % [facility] ([facility]) With 02 Systolic blood pressure 136 mm[Hg] 136 mm[Hg] M [facility] ([facility]) RT Arm Diastolic blood pressure 52 mm[Hg] 52 mm[Hg] [facility] RT Arm Heart rate 80 /min 80 /min [facility] Body mass index (BMI) [Ratio] 28.9 kg/m2 28.9 k g/m2 [facility] ([facility])
[2021-09-12] MEDS ORDERED: ALPR0.25 PO (10:07)
[2021-09-12] MEDS ORDERED: LOSA100T8 PO (10:07)
[2021-09-12] MEDS ORDERED: BUSP15TA47 PO (10:07)
[2021-09-12] MEDS ORDERED: FERR1TAB8 PO (10:07)
[2021-09-12] MEDS ORDERED: HOME MED LIST COMPLETE! XX SCH (10:10)
[2021-09-12 10:12] LABS: HEMATOCRIT 35.4 % (36.0-47.0); HEMOGLOBIN 11.2 g/dl (12.0-15.5); LYMPH # 0.9 10^3/uL (1.5-5.0); LYMPH % 14.5 % (24.0-44.0); MEAN CORPUSCULAR HEMOGLOBIN 28.1 pg (27.0-33.0); MEAN CORPUSCULAR HGB CONC 31.6 g/dl (32.0-36.5); MEAN CORPUSCULAR VOLUME 88.7 fl (80.0-96.0); MONO # 0.5 10^3/uL (0.0-0.8); PLATELET COUNT, AUTOMATED 159 10^3/uL (150-450); RED BLOOD COUNT 3.99 10^6/uL (4.00-5.40); WHITE BLOOD COUNT 6.4 10^3/uL (4.0-10.0)
[2021-09-12 10:29] LABS: INR 0.9; PROTHROMBIN TIME 12.5 SECONDS (12.7-14.5)
[2021-09-12 10:30] LABS: PARTIAL THROMBOPLASTIN TIME 32.5 SECONDS (25.9-37.0)
[2021-09-12 10:33] LABS: ALBUMIN 3.1 GM/DL (3.2-5.2); ALT/SGPT 29 U/L (12-78); BILIRUBIN,TOTAL 0.7 MG/DL (0.2-1.0); BLOOD UREA NITROGEN 12 MG/DL (7-18); C REACTIVE PROTEIN QUANTITATIV 7.55 MG/DL (0.00-0.30); CALCIUM LEVEL 8.8 MG/DL (8.8-10.2); CARBON DIOXIDE LEVEL 40 MEQ/L (21-32); CHLORIDE LEVEL 98 MEQ/L (98-107); CK-MB VALUE MASS < 1.0 NG/ML (<3.6); CPK CREATINE PHOSPHOKINASE 27 U/L (26-192); CREATININE FOR GFR 0.45 MG/DL (0.55-1.30); D-DIMER QUANT 1465.68 ng/ml (<500); FERRITIN 127 NG/ML (8-252); GLOMERULAR FILTRATION RATE > 60.0 (>45); GLUCOSE, FASTING 95 MG/DL (70-100); LDH LACTATE DEHYDROGENASE 164 U/L (84-246); MAGNESIUM LEVEL 1.8 MG/DL (1.8-2.4); POTASSIUM SERUM 3.2 MEQ/L (3.5-5.1); SODIUM LEVEL 140 MEQ/L (136-145); TOTAL PROTEIN 7.5 GM/DL (6.4-8.2); TROPONIN I < 0.02 NG/ML (< 0.10)
[2021-09-12 11:19] LABS: THYROID STIMULATING HORMONE 0.318 uIU/ML (0.358-3.740)
[2021-09-12 11:36] LABS: RSV AMPLIFICATION NEGATIVE (NEGATIVE)
[2021-09-12] MEDS ORDERED: ACETAMINOPHEN TAB 650MG DOSE (2X325MG) PO PRN (12:25)
[2021-09-12] MEDS ORDERED: ALBUTEROL SULFATE 2.5 MG/0.5 ML INH NEB SOLN INH PRN (12:30)
[2021-09-12] MEDS ORDERED: FLUTICASONE PROP 0.05% NASAL SPRAY 16 GM (FLONASE) NARES PRN (12:30)
[2021-09-12] MEDS ORDERED: OMEPRAZOLE 20 MG CAP PO ONE (12:30)
--- OUTSIDE RECORDS SUMMARY | 2021-09-12 12:43 | CCD ---
Author Author [facility] Organization [facility] Address Unknown Phone Unavailable Care Team Providers Care Industrial Gas Servicer Supervisor Name Role Phone Chelita Nolan MD Unavailable Unavailable Chelita Nolan MD Unavailable Unavailable Chelita Nolan MD Unavailable Unavailable Chelita Nolan MD Unavailable Unavailable Cheltia Nolan MD Unavailable Unavailable Chelita Nolan MD [...] Unavailable Chelita Nolan MD Unavailable Unavailable Chelita Noaln MD Unavailable Unavailable Chelita Nolan MD Unavailable [...] Chelita Nolan MD Unavailable Unavailable Alvarez, Amanda THREE DIMENSIONAL ART INSTRUCTOR Unavailable Unavailable Alvarez, Amanda THREE DIMENSIONAL ART INSTRUCTOR Unavailable Unavailable Alvarez, Amanda THREE DIMENSIONAL ART INSTRUCTOR Unavailable Unavailable Alvarez, Amanda THREE DIMENSIONAL ART INSTRUCTOR Unavailable Unavailable Alvarez, Amanda THREE DIMENSIONAL ART INSTRUCTOR Unavailable Unavailable Alvarez, Amanda THREE DIMENSIONAL ART INSTRUCTOR Unavailable Unavailable Alvarez, Amanda THREE DIMENSIONAL ART INSTRUCTOR Unavailable Unavailable Alvarez, Amanda THREE DIMENSIONAL ART INSTRUCTOR Unavailable Unavailable Alvarez, Amanda THREE DIMENSIONAL ART INSTRUCTOR Unavailable Unavailable Alvarez, Amanda THREE DIMENSIONAL ART INSTRUCTOR Unavailable Unavailable Alvarez, Amanda THREE DIMENSIONAL ART INSTRUCTOR Unavailable Unavailable Alvarez, Amanda THREE DIMENSIONAL ART INSTRUCTOR Unavailable Unavailable Alvarez, Amanda THREE DIMENSIONAL ART INSTRUCTOR Unavailable Unavailable Alvarez, Amanda THREE DIMENSIONAL ART INSTRUCTOR Unavailable Unavailable Alvarez, Amanda THREE DIMENSIONAL ART INSTRUCTOR Unavailable Unavailable Alvarez, Amadna THREE DIMENSIONAL ART INSTRUCTOR Unavailable Unavailable Alvarez, Amanda THREE DIMENSIONAL ART INSTRUCTOR Unavailable Unavailable Alvarez, Amanda THREE DIMENSIONAL ART INSTRUCTOR Unavailable Unavailable Alvarez, Amanda THREE DIMENSIONAL ART INSTRUCTOR Unavailable Unavailable Alvarez, Amanda THREE DIMENSIONAL ART INSTRUCTOR Unavailable Unavailable Alvarez, Amanda THREE DIMENSIONAL ART INSTRUCTOR Unavailable Unavailable Alvarez, Amanda THREE DIMENSIONAL ART INSTRUCTOR Unavailable Unavailable Alvarez, Amanda THREE DIMENSIONAL ART INSTRUCTOR Unavailable Unavailable Alvarez, Amanda THREE DIMENSIONAL ART INSTRUCTOR Unavailable Unavailable Alvarez, Amanda THREE DIMENSIONAL ART INSTRUCTOR Unavailable Unavailable Alvarez, Amanda THREE DIMENSIONAL ART INSTRUCTOR Unavailable Unavailable Alvarez, Amanda THREE DIMENSIONAL ART INSTRUCTOR Unavailable Unavailable Alvarez, Amanda THREE DIMENSIONAL ART INSTRUCTOR Unavailable Unavailable Alvarez, Amanda THREE DIMENSIONAL ART INSTRUCTOR Unavailable Unavailable Alvarez, Amanda THREE DIMENSIONAL ART INSTRUCTOR Unavailable Unavailable Alvarez, Amanda THREE DIMENSIONAL ART INSTRUCTOR Unavailable Unavailable Alvarez, Amanda THREE DIMENSIONAL ART INSTRUCTOR Unavailable Unavailable Alvarez, Amanda THREE DIMENSIONAL ART INSTRUCTOR Unavailable Unavailable Alvarez, Amanda THREE DIMENSIONAL ART INSTRUCTOR Unavailable Unavailable Alvarez, Amanda THREE DIMENSIONAL ART INSTRUCTOR Unavailable Unavailable BeaAdina longoria MD Unavailable Unavailable [...] Unavailable Unavailable Adina Figueredo MD Unavailable Unavailable dAina Figueredo MD Unavailable Unavailable Adina Figueredo MD [...] Unavailable ROBERTA, FRANCESCO PA Unavailable Unavailable ROBERTA, FRANECSCO PA Unavailable Unavailable ROBERTA, FRANCESCO PA Unavailable [...] Novoa, Angel Justino MD Unavailable Unavailable Novoa, Anegl Justino MD Unavailable Unavailable Novoa, Angel Justino [...] Article 27-F of the [facility] Public Health law. If you continue you may have access to information: Regarding HIV / AIDS; Provided by facilities licensed or operated by the [facility] Office of Mental Health; or Provided by the [facility] Office for People With Developmental Disabilities. If such information is present, then the following [facility] mandated warning applies: This information has [...] Attender: Tammy Lopez 09:30:00 AM EDT [facility] ([facility] ) Outpatient Attender: Tammy Lopez 11:30:00 AM EDT [facility] ([facility] ) Outpatient Attender: Justino Saab/Mauro/Mary haywood 05/03/2021 01:23:00 AM EDT [facility] ([facility]) Outpatient Attender: Tammy Lopez 01:15:00 PM EDT [facility] ([facility] ) Outpatient Attender: FRANCESCO silva 02/13/2021 05:05:00 PM EDT [facility] ([facility]) Outpatient Attender: Wes Nolan MD Main Office 02/11/2021 10:45:00 AM EDT [facility] ([facility]) Office Visit Attender: Tammy Lopez 08:00:00 AM EDT [facility] ([facility] ) Outpatient Attender: Amanda Lopez 08:00:00 AM EDT [facility] ([facility] ) Immunizations Vaccine Date Status Description Data Source(s) Influenza, injectable, MDCK, preservative free, joan valent 07/31/2021 09:32:00 AM EDT completed [facility]) Influenza, injectable, MDCK, preservative free, joan valent 08/08/2020 08:03:00 AM EDT completed [facility]) Medications Medication Brand Name Start [...] DAILY DOSE = 2 TABLETS SOLD: 08/02/2021 [employer] [place] 324 mg (65 mg iron) 08/02/2021 12:00:00 AM EDT tablet, delayed release (DR/EC) 41 TAKE ONE TABLET BY MOUTH EVERY DAY TAKE ONE TABL ET BY MOUTH EVERY DAY SOLD: 08/05/2021 [facility] ferrous sulfate 325 MG Delayed Release Oral Tablet Ferrous S ulfate 08/01/2021 12:00:00 AM EDT ORAL active M EDENT ([facility]) sennosides, SHELTER 8.6 MG Oral Tablet Senna 08/01/2021 12:00:00 AM EDT active [facility] ([facility]) Administration Of Flu Vaccine 07/31/2021 12:00:00 AM EDT completed [facility]) Medication administered onsite 4 mg [...] propionate 0.05 MG/ACTUAT Metered Dose Brayan al [place] 50 mcg/actuation FLUTICASONE PROPIONATE 07/16/2021 12:00:00 AM [...] A DAY SOLD: 07/07/2021 [facility] Nystatin [id number] UNT/ML Oral Suspension Nystatin 05/20/2021 12:00:00 AM EDT active [facility] ([facility]) buspirone hydrochloride 15 MG Oral Tablet Buspirone HCL 05/13/2021 12:00:00 AM EDT ORAL active [facility] ([facility]) Alprazolam 0.25 MG Oral Tablet Alprazolam 05/13/2021 12:00:00 AM EDT ORAL active [facility] ([facility]) Potassium Chloride 10 MEQ Extended Release Oral Tablet Potassium Chloride M[facility] ER 04/24/2021 12:00:00 AM EDT active [facility] ([facility]) Losartan Potassium 100 MG Oral Tablet Losartan Potassium 12:00:00 AM EDT completed [facility] ([facility]) buspirone hydrochloride 7.5 MG Oral Tablet Buspirone HCL 04/23/2021 12:00:00 AM EDT ORAL completed [facility] ([facility]) buspirone hydrochloride 5 MG Oral Tablet Buspirone HCL 02/24/2021 12:00:00 AM EDT ORAL completed [facility] ([facility]) Amoxicillin 875 MG / Clavulanate 125 MG Oral Tablet Am oxicillin/Clavulanate Potassium 02/13/2021 12:00:00 AM EDT ORAL active [facility] ([facility]) Sutab Sutab 02/11/2021 12:00:00 AM EDT active [facility] ([facility]) Ondansetron 4 MG Oral Tablet Ondansetron HCL 02/06/2021 12:00:00 AM EDT active [facility] ([facility]) 02 2 Liters Nasal Can 01/28/2021 12:00:00 AM EDT completed [facility] ([facility]) Administration Of Flu Vaccine 08/08/2020 12:00:00 AM EDT completed [facility]) Medication administered onsite Insurance Providers Payer name Policy type / Coverage type Policy ID Covered democrat ID Covered democrat's relationship to licea Policy Licea Plan Information MEDICARE [id number] SP [id number] A Medicare Natl Govt Serv Medicare Primary [id number] Self [id number] Medicare Natl Govt Serv Medicare Primary [id number] Self MEDICARE [id number] Yaneth [id number] A MEDICARE [id number] SP [id number] Medicare Natl Govt Serv Medicare Primary [id number] Self [id number] Medicare Natl Govt Serv Medicare Primary [id number] Self [id number] Medicare Natl Govt Servic Medicare Primary [id number] Self [id number] Medicare Natl Govt Servic Medicare Primary [id number] Self [id number] Medicaid Medigap Part B [id number] Self [id number] MEDICAID [id number] SP [id number] Medicaid Medigap Part B [id number] Self MEDICARE C [id number] S [id number] A MEDICAID M [id number] S [id number] MEDICAID M [id number] S [id number] A MEDICARE [id number] SP [id number] MEDICARE COMPLETE [id number] SP [id number] [place] [id number] SP [id number] N MEDICARE COMPLETE [id number] SP [id number] MEDICARE COMPLETE [id number] SP [id number] EMEDNY [id number] SP [id number] Medicaid Medigap Part B [id number] Self [id number] Medicaid Medigap Part B [id number] Self [id number] Medicaid Medigap Part B [id number] Self [id number] Medicaid Medigap Part B [id number] Self [id number] Problems, Conditions, and Diagnoses Code Display Name Description Problem Type Effective Dates Data Source(s) [id number] Screening for malignant neoplasm of colo n Screening for malignant neoplasm of colon Problem 02/11/2021 12:00:00 AM EDT [facility] Surgeries/Procedures Procedure Description Date Indications Data Source(s) OFFICE OUTPATIENT VISIT 25 MINUTES 07/31/2021 12:00:00 AM EDMichel SAXENA ([facility]) Chronic Care Management Services Ea Addl 20 Min 2020 12:00:00 AM EDMichel SAXENA ([facility]) Chronic Care MGMT 20 Mins Clinical Staff Time Per Calendar M onth 05/14/2021 12:00:00 AM MIKE SAXENA ([facility] ) OFFICE OUTPATIENT VISIT 25 MINUTES 05/13/2021 12:00:00 AM EDT [facility] ([facility]) INITIAL HOSPITAL CARE/DAY 70 MINUTES 05/03/2021 12:00: 00 AM EDT [facility] ([facility] Singer Cre SRV W/I 7 Days Of DC, Comm W/I 2 Dys Med Rec 04/23/2021 12:00:00 AM EDT [facility] ([facility] ) Chronic Care MGMT 20 Mins Clinical Staff Time Per Calendar M [facility] 04/11/2021 12:00:00 AM EDT [facility] ([facility] ) Chronic Care Management Services Ea Addl 20 Min 2020 12:00:00 AM EDT [facility] ([facility]) Chronic Care MGMT 20 Mins Clinical Staff Time Per Calendar M [facility] 03/24/2021 12:00:00 AM EDT [facility] ([facility] ) Colonoscopy 02/26/2021 12:00:00 AM EDT M EDENT ([facility]) Complex Chronic Care MGMT Service Ea Addl 30 Min 02/24 12:00:00 AM EDT [facility] ([facility]) Complex Chronic Care Management SVC 1St 60 Min 021 12:00:00 AM EDT [facility] ([facility]) PERIODIC PREVENTIVE MED EST PATIENT 65YRS&> 01/28/2021 12:00:00 AM EDT [facility] ([facility]) Complex Chronic Care Management SVC 1St 60 Min 021 12:00:00 AM EDT [facility] ([facility]) Complex Chronic Care MGMT Service Ea Addl 30 Min 01/20 12:00:00 AM EDT [facility] ([facility]) Chronic Care MGMT 20 Mins Clinical Staff Time Per Calendar M [facility] 11/27/2020 12:00:00 AM EST [facility] ([facility] ) Results ID Date Data Source [id number] 07/31/2021 10:10:00 AM EDT [facility] ([facility]) Name Value Range Interpretation Code Description Data Pamella rce(s) Supporting Document(s) Ferritin [Mass/volume] in Serum or Plasma 21 ng/mL 8-252 [facility] ([facility]) ID Date Data Source [id number] 07/31/2021 10:06:00 AM EDT [facility] ([facility]) Name Value Range Interpretation Code Description Data Pamella rce(s) Supporting Document(s) Thyrotropin [Units/volume] in Serum or Plasma by Detec tion limit <= 0.05 mIU/L 1.17 uIU/mL 0.36-3.74 [facility] ([facility] ) ID Date Data Source [id number] 07/31/2021 10:06:00 AM EDT [facility] ([facility]) Name Value Range Interpretation Code Description Data Pamella rce(s) Supporting Document(s) Urea nitrogen [Mass/volume] in Serum or Plasma 19 mg/dL 7-18 [facility] ([facility]) Glucose [Mass/volume] in Serum or Plasma 89 mg/dL 74-99 [facility] ([facility]) 100-125 mg/dL PRE-DIABETES/FASTING >126 mg/dL DIABETES/FASTING Creatinine 0.5 mg/dL 0.6-1.3 [facility] Sodium [Moles/volume] in Serum or Plasma 140 meq/L 136-145 [facility] ([facility]) Potassium [Moles/volume] in Serum or Plasma 4.1 meq/L 3.5-5.1 [facility] ([facility]) Chloride [Moles/volume] in Serum or Plasma 101 meq/L 98-107 [facility] ([facility]) Carbon dioxide, total [Moles/volume] in Serum or Plasma 36 meq/L 21 -32 [facility] ([facility]) Calcium [Mass/volume] in Serum or Plasma 9.3 mg/dL 8.5-10.1 [facility] ([facility]) Glomerular filtration rate/1.73 sq M pre dicted among non-blacks [Volume Rate/Area] in Serum or Plasma by Creatinine-based formula (MDRD) Laboratory test result [facility] Glomerular filtration rate/1.73 sq M pre dicted among blacks [Volume Rate/Area] in Serum or Plasma by Creatinine-based formula (MDRD) Laboratory test result [facility] <content>CHRONIC KIDNEY DISEASE STAGING PER NKF</content>
<content></content>
<content>STAGE I & II GFR >= 60 NORMAL TO MILDLY DECREASED</content>
<content>STAGE III GFR 30-59 MODERATELY DECREASED</content>
<content>STAGE IV GFR 15-29 SEVERELY DECREASED</content>
<content>STAGE V GFR <15 VERY LITTLE GFR LEFT</content>
<content>ESRD GFR <15 ON CUSTOMER MARKETING INTERN</content>
<content></content> ID Date Data Source [id number] 07/31/2021 10:06:00 AM EDT [facility] ([facility]) Name Value Range Interpretation Code Description Data Pamella rce(s) Supporting Document(s) Magnesium 1.8 mg/dL 1.8-2.4 [facility] ID Date Data Source [id number] 07/31/2021 10:06:00 AM EDT [facility] ([facility]) Name Value Range Interpretation Code Description Data Pamella rce(s) Supporting Document(s) Leukocytes [#/volume] in Blood by Automated count 9.6 x10*3/UL 4.1-10 .9 [facility] Hemoglobin [Mass/volume] in Blood 12.3 g/dL 12.0-18.0 [facility] Erythrocytes [#/volume] in Blood by Automated count 4.18 x10*6/UL 4.2 0-6.30 [facility] Hematocrit [Volume Fraction] of Blood by Automated count 34.9 % 3 7.0-51.0 [facility] ([facility]) MCH 29.5 pg 26.0-32.0 [facility] ([facility]) MCHC 35.4 g/dL 31.0-38.0 [facility] ([facility]) MCV 83.4 fL 80.0-97.0 [facility] ([facility]) Erythrocyte distribution width [Ratio] by Automated count 13.0 % 11.6-13.7 [facility] ([facility]) MPV 7.7 FL 7.8-11.0 [facility]) Platelets [#/volume] in Blood by Automated count 251 x10*3/UL 140-440 [facility] ([facility]) Neut % 74.4 % 37.0-92.0 [facility]) Mid % 5.1 % 1.7-9.3 [facility] Lymph % 20.5 % 10.0-58.5 [facility] Mid # 0.5 x10*3/UL 0.1-0.6 [facility] ([facility]) Neut # 7.2 x10*3/UL 2.0-7.8 [facility] ([facility]) Lymph # 1.9 x10*3/UL 0.6-4.1 [facility] ([facility]) ID Date Data Source [id number] 05/28/2021 12:30:00 PM EDT [facility] ([facility]) Name Value Range Interpretation Code Description Data Pamella rce(s) Supporting Document(s) Glucose, Fasting 97 mg/dL 70-100 [facility] ([facility]) Blood Urea Nitrogen 13 mg/dL 7-18 [facility] ([facility]) Creatinine For GFR 0.44 mg/dL 0.55-1.30 [facility] ([facility]) Glomerular Filtration Rate Laboratory test result [facility] ([facility]) <content>Units are mL/min/1.73 m2</content>
<content></content>
<content>Chronic Kidney Disease Staging per NKF:</content>
<content></content>
<content>Stage I & II GFR >=60 Normal to Mildly Decreased</content>
<content>Stage III GFR 30- 59 Moderately Decreased</content>
<content>Stage IV GFR 15-29 Severely Decreased</content>
<content>Stage V GFR <15 Very Little GFR Left</content>
<content>ESRD GFR <15 on CUSTOMER MARKETING INTERN</content>
<content></content> Sodium Level 141 meq/L 136-145 [facility] ([facility]) Potassium Serum 4.0 meq/L 3.5-5.1 [facility] ([facility]) Chloride Level 101 meq/L 98-107 [facility] ([facility]) Carbon Dioxide Level 35 meq/L 21-32 [facility] Anion Gap 5 meq/L 8-16 [facility] Calcium Level 9.5 mg/dL 8.8-10.2 [facility] ([facility]) ID Date Data Source [id number] 05/13/2021 11:56:00 AM EDT [facility] ([facility]) Name Value Range Interpretation Code Description Data Pamella rce(s) Supporting Document(s) Glucose [Mass/volume] in Serum or Plasma 88 mg/dL 74-99 [facility] ([facility]) 100-125 mg/dL PRE-DIABETES/FASTING >126 mg/dL DIABETES/FASTING Urea nitrogen [Mass/volume] in Serum or Plasma 19 mg/dL 7-18 [facility] ([facility]) Creatinine 0.5 mg/dL 0.6-1.3 [facility] ([facility]) Sodium [Moles/volume] in Serum or Plasma 143 meq/L 136-145 [facility] ([facility]) Potassium [Moles/volume] in Serum or Plasma 3.7 meq/L 3.5-5.1 [facility] ([facility]) Chloride [Moles/volume] in Serum or Plasma 102 meq/L 98-107 [facility] ([facility]) Carbon dioxide, total [Moles/volume] in Serum or Plasma 35 meq/L 21 -32 [facility] ([facility]) Calcium [Mass/volume] in Serum or Plasma 9.5 mg/dL 8.5-10.1 [facility] ([facility]) Alkaline phosphatase isoenzyme [Units/volume] in Serum or Pl asma 90 mg/dL 46-116 [facility] ([facility]) Total Bilirubin 0.9 mg/dL 0.2-1.0 [facility] ([facility]) Aspartate aminotransferase [Enzymatic activity/volume] in Serum or Plasma 17 U/L 15-37 [facility] ([facility] ) Alanine aminotransferase [Enzymatic activity/volume] in Seru m or Plasma 30 U/L 12-78 [facility] Albumin [Mass/volume] in Serum or Plasma 3.4 g/dL 3.4-5.0 [facility]) Proteinase 3 Ab [Units/volume] in Serum 6.5 g/dL 6.4-8.2 [facility]) A/G Ratio 1.10 CALC 1.00-1.90 [facility]) Glomerular filtration rate/1.73 sq M pre dicted among non-blacks [Volume Rate/Area] in Serum or Plasma by Creatinine-based formula (MDRD) Laboratory test result [facility] Glomerular filtration rate/1.73 sq M pre dicted among blacks [Volume Rate/Area] in Serum or Plasma by Creatinine-based formula (MDRD) Laboratory test result [facility] <content>CHRONIC KIDNEY DISEASE STAGING PER NKF</content>
<content></content>
<content>STAGE I & II GFR >= 60 NORMAL TO MILDLY DECREASED</content>
<content>STAGE III GFR 30-59 MODERATELY DECREASED</content>
<content>STAGE IV GFR 15-29 SEVERELY DECREASED</content>
<content>STAGE V GFR <15 VERY LITTLE GFR LEFT</content>
<content>ESRD GFR <15 ON CUSTOMER MARKETING INTERN</content>
<content></content> ID Date Data Source [id number] 05/13/2021 11:56:00 AM EDT [facility]) Name Value Range Interpretation Code Description Data Pamella rce(s) Supporting Document(s) Leukocytes [#/volume] in Blood by Automated count 13.4 x10*3/UL 4.1-1 0.9 [facility] ([facility]) NOTE: RESULT VERIFIED. Erythrocytes [#/volume] in Blood by Automated count 4.07 x10*6/UL 4.2 0-6.30 [facility] ([facility]) Hemoglobin [Mass/volume] in Blood 12.2 g/dL 12.0-18.0 [facility] ([facility]) Hematocrit [Volume Fraction] of Blood by Automated count 35.7 % 3 7.0-51.0 [facility] ([facility]) MCH 30.0 pg 26.0-32.0 [facility] MCV 87.8 fL 80.0-97.0 [facility] Platelets [#/volume] in Blood by Automated count 351 x10*3/UL 140-440 [facility] ([facility]) MCHC 34.1 g/dL 31.0-38.0 [facility] Erythrocyte distribution width [Ratio] by Automated count 13.6 % 11.6-13.7 [facility] ([facility]) MPV 7.2 FL 7.8-11.0 [facility] Lymph % 23.5 % 10.0-58.5 [facility] Mid % 5.9 % 1.7-9.3 [facility] Lymph # 3.1 x10*3/UL 0.6-4.1 [facility] ([facility]) Neut % 70.6 % 37.0-92.0 [facility] Mid # 0.8 x10*3/UL 0.1-0.6 [facility] ([facility]) Neut # 9.5 x10*3/UL 2.0-7.8 [facility] ([facility]) ID Date Data Source [id number] 05/02/2021 12:13:00 PM EDT [facility] Name Value Range Interpretation Code Description Data Pamella rce(s) Supporting Document(s) SARS-CoV-2 (COVID 19) NEGATIVE - SARS-CoV-2 (COVID19) [facility] This lab was ordered by [facility] a nd reported by [facility]. ID Date Data Source [id number] 05/01/2021 11:54:00 AM EDT [facility] Name Value Range Interpretation Code Description Data Pamella rce(s) Supporting Document(s) SARS-CoV-2 (COVID 19) NEGATIVE - SARS-CoV-2 (COVID19) [facility] This lab was ordered by [facility] a nd reported by [facility]. ID Date Data Source [id number] 04/29/2021 03:20:00 PM EDT [facility] Name Value Range Interpretation Code Description Data Pamella rce(s) Supporting Document(s) SARS-CoV-2 (COVID 19) NEGATIVE - SARS-CoV-2 (COVID19) [facility] This lab was ordered by [facility] a nd reported by [facility]. ID Date Data Source [id number] 04/23/2021 01:03:00 PM EDT [facility] ([facility]) Name Value Range Interpretation Code Description Data Pamella rce(s) Supporting Document(s) Glucose [Mass/volume] in Serum or Plasma 91 mg/dL 74-99 [facility] ([facility]) 100-125 mg/dL PRE-DIABETES/FASTING >126 mg/dL DIABETES/FASTING Urea nitrogen [Mass/volume] in Serum or Plasma 24 mg/dL 7-18 [facility] ([facility]) Creatinine 0.6 mg/dL 0.6-1.3 [facility] Potassium [Moles/volume] in Serum or Plasma 3.0 meq/L 3.5-5.1 [facility] ([facility]) Sodium [Moles/volume] in Serum or Plasma 141 meq/L 136-145 [facility] ([facility]) Chloride [Moles/volume] in Serum or Plasma 97 meq/L 98-107 [facility] ([facility]) Carbon dioxide, total [Moles/volume] in Serum or Plasma 43 meq/L 21 -32 [facility] ([facility]) Calcium [Mass/volume] in Serum or Plasma 9.5 mg/dL 8.5-10.1 [facility] ([facility]) Glomerular filtration rate/1.73 sq M pre dicted among blacks [Volume Rate/Area] in Serum or Plasma by Creatinine-based formula (MDRD) Laboratory test result [facility] ([facility]) <content>CHRONIC KIDNEY DISEASE STAGING PER NKF</content>
<content></content>
<content>STAGE I & II GFR >= 60 NORMAL TO MILDLY DECREASED</content>
<content>STAGE III GFR 30-59 MODERATELY DECREASED</content>
<content>STAGE IV GFR 15-29 SEVERELY DECREASED</content>
<content>STAGE V GFR <15 VERY LITTLE GFR LEFT</content>
<content>ESRD GFR <15 ON C[employer]ER [employer] INTERN</content>
<content></content> Glomerular filtration rate/1.73 sq M pre dicted among non-blacks [Volume Rate/Area] in Serum or Plasma by Creatinine-based formula (MDRD) Laboratory test result [facility] ([facility] ) ID Date Data Source [id number] 04/23/2021 01:03:00 PM EDT [facility] Name Value Range Interpretation Code Description Data Pamella rce(s) Supporting Document(s) Leukocytes [#/volume] in Blood by Automated count 18.7 x10*3/UL 4.1-1 0.9 [facility] ([facility]) NOTE: CBC VERIFIED Erythrocytes [#/volume] in Blood by Automated count 4.14 x10*6/UL 4.2 0-6.30 [facility] ([facility]) Hemoglobin [Mass/volume] in Blood 12.2 g/dL 12.0-18.0 [facility] Hematocrit [Volume Fraction] of Blood by Automated count 36.2 % 3 7.0-51.0 [facility] MCH 29.5 pg 26.0-32.0 [facility] MCV 87.5 fL 80.0-97.0 [facility]) Erythrocyte distribution width [Ratio] by Automated count 13.0 % 11.6-13.7 [facility] MCHC 33.8 g/dL 31.0-38.0 [facility] ([facility]) Platelets [#/volume] in Blood by Automated count 523 x10*3/UL 140-440 [facility] ([facility]) MPV 7.2 FL 7.8-11.0 [facility] Mid % 5.6 % 1.7-9.3 [facility] Lymph % 24.9 % 10.0-58.5 [facility] Mid # 1.1 x10*3/UL 0.1-0.6 [facility] ([facility]) Neut % 69.5 % 37.0-92.0 [facility] Lymph # 4.6 x10*3/UL 0.6-4.1 [facility] ([facility]) Neut # 13.0 x10*3/UL 2.0-7.8 [facility] ([facility]) ID Date Data Source [id number] 04/17/2021 01:54:00 PM EDT [facility] Name Value Range Interpretation Code Description Data Pamella rce(s) Supporting Document(s) SARS coronavirus 2 RNA [Presence] in Res piratory specimen by ALEENA with probe detection NEGATIVE [facility] This lab was ordered by [facility] a nd reported by [facility]. ID Date Data Source [id number] 02/21/2021 11:55:00 AM EDT [facility] Name Value Range Interpretation Code Description Data Pamella rce(s) Supporting Document(s) SARS-CoV-2 (COVID-19) RNA [Presence] in Respiratory specimen by ALEENA with probe detection Not Detected [facility] This lab was ordered by [facility] and reported by [employer] ID Date Data Source [id number] 01/28/2021 09:03:00 AM EDT [facility] ([facility]) Name Value Range Interpretation Code Description Data Pamella rce(s) Supporting Document(s) Iron (Fe) 58 ug/dL 50-170 [facility] Total Iron Binding Capacity 326 ug/dL 250-450 [facility] ([facility]) Percent Saturation 17.8 % 13.2-45.0 [facility] ([facility]) ID Date Data Source [id number] 01/28/2021 09:03:00 AM EDT [facility] ([facility]) Name Value Range Interpretation Code Description Data Pamella rce(s) Supporting Document(s) Ferritin [Mass/volume] in Serum or Plasma 70 ng/mL 8-252 [facility] ([facility]) ID Date Data Source [id number] 01/28/2021 09:02:00 AM EDT [facility] ([facility]) Name Value Range Interpretation Code Description Data Pamella rce(s) Supporting Document(s) Thyrotropin [Units/volume] in Serum or Plasma by Detec tion limit <= 0.05 mIU/L 1.54 uIU/mL 0.36-3.74 [facility] ([facility] ) ID Date Data Source [id number] 01/28/2021 09:02:00 AM EDT [facility] ([facility]) Name Value Range Interpretation Code Description Data Pamella rce(s) Supporting Document(s) Cholesterol [Mass/volume] in Serum or Plasma 194 mg/dL 131-200 [facility] ([facility]) Triglyceride [Mass/volume] in Serum or Plasma 211 mg/dL 30-150 [facility] ([facility]) Cholesterol in HDL [Mass/volume] in Serum or Plasma 58 mg/dL 35-60 [facility] ([facility]) Cholesterol in LDL [Mass/volume] in Serum or Plasma by calcu lation 94 CALC 50-159 [facility] ([facility]) ID Date Data Source [id number] 01/28/2021 09:02:00 AM EDT [facility] ([facility]) Name Value Range Interpretation Code Description Data Pamella rce(s) Supporting Document(s) Glucose [Mass/volume] in Serum or Plasma 101 mg/dL 74-99 [facility] ([facility]) 100-125 mg/dL PRE-DIABETES/FASTING >126 mg/dL DIABETES/FASTING Creatinine 0.5 mg/dL 0.6-1.3 [facility]) Urea nitrogen [Mass/volume] in Serum or Plasma 15 mg/dL 7-18 [facility] ([facility]) Sodium [Moles/volume] in Serum or Plasma 142 meq/L 136-145 [facility] ([facility]) Chloride [Moles/volume] in Serum or Plasma 100 meq/L 98-107 [facility] ([facility]) Potassium [Moles/volume] in Serum or Plasma 4.0 meq/L 3.5-5.1 [facility] ([facility]) Carbon dioxide, total [Moles/volume] in Serum or Plasma 33 meq/L 21 -32 [facility] ([facility]) Alkaline phosphatase isoenzyme [Units/volume] in Serum or Pl asma 124 mg/dL 46-116 [facility] ([facility]) Calcium [Mass/volume] in Serum or Plasma 9.0 mg/dL 8.5-10.1 [facility] ([facility]) Total Bilirubin 0.5 mg/dL 0.2-1.0 [facility] ([facility]) Aspartate aminotransferase [Enzymatic activity/volume] in Serum or Plasma 15 U/L 15-37 [facility] ([facility] ) Albumin [Mass/volume] in Serum or Plasma 3.9 g/dL 3.4-5.0 [facility] ([facility]) Alanine aminotransferase [Enzymatic activity/volume] in Seru m or Plasma 18 U/L 12-78 [facility] ([facility]) A/G Ratio 1.05 CALC 1.00-1.90 [facility] ([facility]) Proteinase 3 Ab [Units/volume] in Serum 7.6 g/dL 6.4-8.2 [facility] ([facility]) Glomerular filtration rate/1.73 sq M pre dicted among blacks [Volume Rate/Area] in Serum or Plasma by Creatinine-based formula (MDRD) Laboratory test result [facility] <content>CHRONIC KIDNEY DISEASE STAGING PER NKF</content>
<content></content>
<content>STAGE I & II GFR >= 60 NORMAL TO MILDLY DECREASED</content>
<content>STAGE III GFR 30-59 MODERATELY DECREASED</content>
<content>STAGE IV GFR 15-29 SEVERELY DECREASED</content>
<content>STAGE V GFR <15 VERY LITTLE GFR LEFT</content>
<content>ESRD GFR <15 ON CUST[employer]ER MARK[employer]ING INTERN</content>
<content></content> Glomerular filtration rate/1.73 sq M pre dicted among non-blacks [Volume Rate/Area] in Serum or Plasma by Creatinine-based formula (MDRD) Laboratory test result [facility] ([facility] ) ID Date Data Source [id number] 01/28/2021 09:02:00 AM EDT [facility] Name Value Range Interpretation Code Description Data Pamella rce(s) Supporting Document(s) Creatine kinase [Enzymatic activity/volume] in Serum or Plasma 23 U /L 26-192 [facility] Magnesium 1.8 mg/dL 1.8-2.4 [facility] ([facility]) ID Date Data Source [id number] 01/28/2021 09:02:00 AM EDT [facility] Name Value Range Interpretation Code Description Data Pamella rce(s) Supporting Document(s) Leukocytes [#/volume] in Blood by Automated count 11.1 x10*3/UL 4.1-1 0.9 [facility] Erythrocytes [#/volume] in Blood by Automated count 3.69 x10*6/UL 4.2 0-6.30 [facility] Hemoglobin [Mass/volume] in Blood 11.3 g/dL 12.0-18.0 [facility] MCV 87.4 fL 80.0-97.0 [facility] ([facility]) Hematocrit [Volume Fraction] of Blood by Automated count 32.2 % 3 7.0-51.0 [facility] MCH 30.6 pg 26.0-32.0 [facility]) MCHC 35.0 g/dL 31.0-38.0 [facility] ([facility]) Erythrocyte distribution width [Ratio] by Automated count 13.3 % 11.6-13.7 [facility] ([facility]) Platelets [#/volume] in Blood by Automated count 300 x10*3/UL 140-440 [facility]) MPV 7.4 FL 7.8-11.0 [facility] Lymph % 18.6 % 10.0-58.5 [facility] ([facility] Mid % 4.7 % 1.7-9.3 [facility] Lymph # 2.0 x10*3/UL 0.6-4.1 [facility] ([facility]) Neut % 76.7 % 37.0-92.0 [facility] Neut # 8.5 x10*3/UL 2.0-7.8 [facility] ([facility]) Mid # 0.6 x10*3/UL 0.1-0.6 [facility] ([facility]) ID Date Data Source [id number] 08/08/2020 07:42:00 AM EDT [facility] ([facility]) Name Value Range Interpretation Code Description Data Pamella rce(s) Supporting Document(s) Thyrotropin [Units/volume] in Serum or Plasma by Detec tion limit <= 0.05 mIU/L 2.10 uIU/mL 0.36-3.74 [facility] ([facility] ) ID Date Data Source [id number] 08/08/2020 07:42:00 AM EDT [facility] ([facility]) Name Value Range Interpretation Code Description Data Pamella rce(s) Supporting Document(s) Cholesterol [Mass/volume] in Serum or Plasma 218 mg/dL 131-200 [facility] ([facility]) Triglyceride [Mass/volume] in Serum or Plasma 146 mg/dL 30-150 [facility] ([facility]) Cholesterol in LDL [Mass/volume] in Serum or Plasma by calcu lation 125 CALC 50-159 [facility] ([facility]) Cholesterol in HDL [Mass/volume] in Serum or Plasma 64 mg/dL 35-60 [facility] ([facility]) ID Date Data Source [id number] 08/08/2020 07:42:00 AM EDT [facility] ([facility]) Name Value Range Interpretation Code Description Data Pamella rce(s) Supporting Document(s) Glucose [Mass/volume] in Serum or Plasma 115 mg/dL 74-99 [facility] ([facility]) 100-125 mg/dL PRE-DIABETES/FASTING >126 mg/dL DIABETES/FASTING Sodium [Moles/volume] in Serum or Plasma 141 meq/L 136-145 [facility] ([facility]) Creatinine 0.7 mg/dL 0.6-1.3 [facility] Urea nitrogen [Mass/volume] in Serum or Plasma 21 mg/dL 7-18 [facility] ([facility]) Potassium [Moles/volume] in Serum or Plasma 4.0 meq/L 3.5-5.1 [facility] ([facility]) Chloride [Moles/volume] in Serum or Plasma 100 meq/L 98-107 [facility] ([facility]) Carbon dioxide, total [Moles/volume] in Serum or Plasma 38 meq/L 21 -32 [facility] ([facility]) Calcium [Mass/volume] in Serum or Plasma 9.7 mg/dL 8.5-10.1 [facility] ([facility]) Alkaline phosphatase isoenzyme [Units/volume] in Serum or Pl asma 130 mg/dL 46-116 [facility] ([facility]) NOTE: RESULT VERIFIED. Alanine aminotransferase [Enzymatic activity/volume] in Seru m or Plasma 22 U/L 12-78 [facility] ([facility]) Aspartate aminotransferase [Enzymatic activity/volume] in Serum or Plasma 15 U/L 15-37 [facility] ([facility] ) Total Bilirubin 0.6 mg/dL 0.2-1.0 [facility] ([facility]) Albumin [Mass/volume] in Serum or Plasma 3.9 g/dL 3.4-5.0 [facility] ([facility]) A/G Ratio 0.98 CALC 1.00-1.90 [facility] ([facility]) Proteinase 3 Ab [Units/volume] in Serum 7.9 g/dL 6.4-8.2 [facility] ([facility]) Glomerular filtration rate/1.73 sq M pre dicted among non-blacks [Volume Rate/Area] in Serum or Plasma by Creatinine-based formula (MDRD) Laboratory test result [facility] ([facility] ) Glomerular filtration rate/1.73 sq M pre dicted among blacks [Volume Rate/Area] in Serum or Plasma by Creatinine-based formula (MDRD) Laboratory test result [facility] ([facility]) <content>CHRONIC KIDNEY DISEASE STAGING PER NKF</content>
<content></content>
<content>STAGE I & II GFR >= 60 NORMAL TO MILDLY DECREASED</content>
<content>STAGE III GFR 30-59 MODERATELY DECREASED</content>
<content>STAGE IV GFR 15-29 SEVERELY DECREASED</content>
<content>STAGE V GFR <15 VERY LITTLE GFR LEFT</content>
<content>ESRD GFR <15 ON CUSTOMER MARKETING INTERN</content>
<content></content> ID Date Data Source [id number] 08/08/2020 07:42:00 AM EDT [facility] Name Value Range Interpretation Code Description Data Pamella rce(s) Supporting Document(s) Leukocytes [#/volume] in Blood by Automated count 11.8 x10*3/UL 4.1-1 0.9 [facility] ([facility]) NOTE: RESULT VERIFIED. Erythrocytes [#/volume] in Blood by Automated count 4.22 x10*6/UL 4.2 0-6.30 [facility] Hemoglobin [Mass/volume] in Blood 12.6 g/dL 12.0-18.0 [facility] ([facility]) MCV 85.7 fL 80.0-97.0 [facility] Hematocrit [Volume Fraction] of Blood by Automated count 36.2 % 3 7.0-51.0 [facility]) Erythrocyte distribution width [Ratio] by Automated count 12.8 % 11.6-13.7 [facility] ([facility]) MCHC 34.9 g/dL 31.0-38.0 [facility] ([facility]) MCH 29.9 pg 26.0-32.0 [facility] ([facility]) Platelets [#/volume] in Blood by Automated count 336 x10*3/UL 140-440 [facility] ([facility]) MPV 7.8 FL 7.8-11.0 [facility] Mid % 5.9 % 1.7-9.3 [facility] ([facility]) Lymph % 23.5 % 10.0-58.5 [facility] ([facility] Mid # 0.8 x10*3/UL 0.1-0.6 [facility] ([facility]) Lymph # 2.7 x10*3/UL 0.6-4.1 [facility] ([facility]) Neut % 70.6 % 37.0-92.0 [facility] Neut # 8.3 x10*3/UL 2.0-7.8 [facility] ([facility]) Procedure Social History Code Duration Value Status Description Data Source(s ) Smoking 02/13/2021 12:00:00 AM EDT Patient is a former smoker completed Patient is a former smoker [facility] ([facility], [facility]) Vital Signs ID Date Data Source UNK Name Value Range Interpretation Code Description Data Source(s) Systolic blood pressure 126 mm[Hg] 126 mm[Hg] M [facility] ([facility]) RT Arm Diastolic blood pressure 64 mm[Hg] 64 mm[Hg] [facility] ([facility]) RT Arm Heart rate 77 /min 77 /min [facility] ([facility]) Body height 61 [in_i] 61 [in_i] [facility] ([facility]) 5'1" Body weight 143.00 [lb_av] 143.00 [lb_av] [facility] Oxygen saturation in Arterial blood by Pulse oximetry 93 % 93 % [facility] With O2 Body mass index (BMI) [Ratio] 27.0 kg/m2 27.0 k g/m2 [facility] ([facility]) Heart rate 78 /min 78 /min [facility] ([facility]) Body height 61 [in_i] 61 [in_i] [facility] ([facility] 5'1" Body mass index (BMI) [Ratio] 25.3 kg/m2 25.3 k g/m2 [facility] Systolic blood pressure 110 mm[Hg] 110 mm[Hg] [facility] Diastolic blood pressure 66 mm[Hg] 66 mm[Hg] [facility] Body weight 134.00 [lb_av] 134.00 [lb_av] [facility] ([facility]) Oxygen saturation in Arterial blood by Pulse oximetry 90 % 90 % [facility] With O2, 94% Heart rate 76 /min 76 /min [facility] ([facility]) Body height 61 [in_i] 61 [in_i] [facility] ([facility]) 5'1" Body weight 143.00 [lb_av] 143.00 [lb_av] [facility] ([facility]) Oxygen saturation in Arterial blood by Pulse oximetry 91 % 91 % [facility] ([facility]) Oxygen saturation in Arterial blood by Pulse oximetry --post exerci se 86 % 86 % [facility] ([facility]) With 02 Body mass index (BMI) [Ratio] 27.0 kg/m2 27.0 k g/m2 [facility] Systolic blood pressure 120 mm[Hg] 120 mm[Hg] M [facility] ([facility]) LT Arm Diastolic blood pressure 70 mm[Hg] 70 mm[Hg] [facility] ([facility]) LT Arm Systolic blood pressure 133 mm[Hg] 133 mm[Hg] [facility] ([facility], [facility]) Diastolic blood pressure 76 mm[Hg] 76 mm[Hg] [facility] ([facility], [facility]) Heart rate 75 /min 75 /min [facility] ([facility], [facility]) Respiratory rate 20 /min 20 /min [facility] ( [facility], [facility]) Oxygen saturation in Arterial blood by [facility]ulse oximetry 88 % 88 % [facility], [facility]) Body temperature 97.8 [degF] 97.8 [degF] [facility] ([facility], [facility]) Body weight 147.00 [lb_av] 147.00 [lb_av] [facility] ([facility], [facility]) Body height 61 [in_i] 61 [in_i] [facility] ([facility] 5'1" Body mass index (BMI) [Ratio] 27.8 kg/m2 27.8 k g/m2 [facility] ([facility], [facility]) Body height 61 [in_i] 61 [in_i] [facility] Body weight 147.00 [lb_av] 147.00 [lb_av] [facility] ([facility]) Systolic blood pressure 130 mm[Hg] 130 mm[Hg] M [facility] ([facility]) Diastolic blood pressure 64 mm[Hg] 64 mm[Hg] [facility] ([facility]) Heart rate 77 /min 77 /min [facility]) Body mass index (BMI) [Ratio] 27.8 kg/m2 27.8 k g/m2 [facility] ([facility]) Body weight 66.679 kg 66.679 kg [facility] Body temperature 97.3 [degF] 97.3 [degF] [facility] ([facility]) Body weight 146.00 [lb_av] 146.00 [lb_av] [facility] ([facility]) Body height 61 [in_i] 61 [in_i] [facility] ([facility] 5'1" Diastolic blood pressure 62 mm[Hg] 62 mm[Hg] [facility] Heart rate 78 /min 78 /min [facility] ([facility]) Systolic blood pressure 128 mm[Hg] 128 mm[Hg] M [facility] ([facility]) Oxygen saturation in Arterial blood by Pulse oximetry 93 % 93 % [facility] With O2 Body mass index (BMI) [Ratio] 27.6 kg/m2 27.6 k g/m2 [facility] ([facility]) Body height 61 [in_i] 61 [in_i] [facility] ([facility] 5'1" Body weight 153.00 [lb_av] 153.00 [lb_av] [facility] ([facility]) Oxygen saturation in Arterial blood by Pulse oximetry --post exerci se 85 % 85 % [facility] ([facility]) With 02 Diastolic blood pressure 52 mm[Hg] 52 mm[Hg] [facility] ([facility]) RT Arm Heart rate 80 /min 80 /min [facility] ([facility]) Body mass index (BMI) [Ratio] 28.9 kg/m2 28.9 k g/m2 [facility] ([facility]) Systolic blood pressure 136 mm[Hg] 136 mm[Hg] M [facility] ([facility]) RT Arm
--- NOTE | 2021-09-12 13:48 | HPEPDOC ---
General Date of Admission Sep 12, 2021 at 12:22 Date of Service: Sep 12, 2021 Chief Complaint The patient is a 70-year-old female admitted with a reason for visit of Acute Hypozemic Respiratory Failure Due To Covid. Source: Patient History of Present Illness Patient is 70-year-old female history of COPD dependent on 2 L of oxygen, hypertension, anxiety, GERD, hyperlipidemia presents with shortness of breath. Patient stated that a few days ago she developed generalized weakness with cough which became progressively worse. Patient was tested positive for COVID-19 2 days ago. She came today in the morning for monoclonal antibody infusion and she was found to have oxygen saturation of 70% on 2 L of oxygen. In ER patient was found to have no tachycardia, normotension, white blood count of 11.2, negative procalcitonin. Chest x-ray showed There is interstitial fibrotic change accentuated by technique. There is a left lower lobe pleural blebs status quo. No acute patchy parenchymal opacities or pleural effusions have developed. Patient denies fever, chills, nausea, vomiting diarrhea dysuria Home Medications Scheduled Alprazolam (Alprazolam) 0.25 Mg Tablet, 0.25 MG PO BID, (Reported) Buspirone HCl (Buspirone HCl) 15 Mg Tablet, 15 MG PO BID, (Reported) Ferrous Sulfate (Ferrous Sulfate) 325 Mg Tablet, 325 MG PO Q2D, (Reported) Losartan/Hydrochlorothiazide (Losartan-Hctz 100-12.5 mg Tab) 1 Each Tablet, 1 TAB PO DAILY, (Reported) Omeprazole (Omeprazole) 40 Mg Capsule.dr, 40 MG PO DAILY, (Reported) Potassium Chloride (Potassium Chloride) 10 Meq Capsule.er, 10 MEQ PO QPM, (Reported) Ropinirole HCl (Ropinirole HCl) 1 Mg Tablet, 1 MG PO QAM, (Reported) Ropinirole HCl (Ropinirole HCl) 1 Mg Tablet, 2 MG PO QHS, (Reported) Salmeterol/Fluticasone (Advair 500-50 Diskus) 1 Each Blst.w.dev, 1 PUFF INH BID, (Reported) Sertraline Hcl (Zoloft) 100 Mg Tablet, 100 MG PO BID, (Reported) Simvastatin (Simvastatin) 20 Mg Tab, 20 MG PO QHS, (Reported) Umeclidinium [place] (Incruse Ellipta) 62.5 Mcg Blst.w.dev, 1 PUFF INH DAILY, (Reported) TAKES IN THE AFTERNOON Scheduled PRN Albuterol Sulfate (Albuterol Sulfate) 2.5 Mg/0.5 Ml Neb, 2.5 MG INH Q6H PRN for SHORTNESS OF BREATH, (Reported) Albuterol Sulfate (Albuterol Sulfate Hfa) 8.5 Gm Hfa.aer.ad, 2 PUFFS INH QID PRN for SHORTNESS OF BREATH, (Reported) Fluticasone Propionate (Fluticasone Propionate) 16 Gm [place].susp, 1 SPRAY NARES BID PRN for CONGESTION, (Reported) Allergies Coded Allergies: No Known Allergies (Unverified , 02/20/21) Past Medical History Medical History COPD dependent on 2.5 L of oxygen at home Hyperlipidemia, hypertension and anxiety GERD History of duodenal ulcer History of pulmonary nodule follows with pulmonary Surgical History Hysterectomy Family History I personally reviewed family history and found not pertinent Social History * Smoker: former Smoker Alcohol: Denies Drugs: denies A-FIB/CHADSVASC A-FIB History Current/History of A-Fib/PAF?: No Current PO Anticoag Therapy: No Review of Systems Constitutional: Denies: Chills, Fever Eyes: Denies: Pain ENT: Denies: Head Aches Skin: Denies: Rash Pulmonary: Reports: Dyspnea, Cough Cardiovascular: Denies: Chest Pain Gastrointestinal: Denies: Nausea Genitourinary: Denies: Dysuria Hematologic: Denies: Bruising Endocrine: Denies: Polydipsia Musculoskeletal: Denies: Neck Pain Neurological: Denies: Weakness Psych: Reports: Mood Normal Physical Examination General Exam: Positive: Alert, Cooperative Eye Exam: Positive: PERRLA ENT Exam: Positive: Atraumatic Neck Exam: Positive: Supple; Negative: JVD Chest Exam: Positive: Rhonchi, Diminished Heart Exam: Positive: Rate Normal Telemetry: Positive: No significant arrhythmia Abdomen Exam: Positive: Normal bowel sounds Extremity Exam: Negative: Clubbing Skin Exam: Negative: Nl turgor and temperature Neuro Exam: Positive: Strength at 5/5 X4 ext Psych Exam: Positive: Mental status NL, Oriented x 3 Vital Signs Vital Signs Date Time Temp Pulse Resp B/P (MAP) Pulse Ox O2 Delivery O2 Flow Rate FiO2 11/12/21 11:00 121/58 (79) 94 Nasal Cannula 3.0 09/12/21 10:55 87 09/12/21 08:59 20 Laboratory Data Labs 24H Laboratory Tests 2 09/12/21 09:56: Immature Granulocyte % (Auto) 0.5, Neutrophils (%) (Auto) 78.0H, Lymphocytes (%) (Auto) 14.5L, Monocytes (%) (Auto) 7.0, Eosinophils (%) (Auto) 0.0, Basophils (%) (Auto) 0.0, Neutrophils # (Auto) 5.0, Lymphocytes # (Auto) 0.9L, Monocytes # (Auto) 0.5, Eosinophils # (Auto) 0.0, Basophils # (Auto) 0.0, Nucleated Red Blood Cells % (auto) 0.0, Prothrombin Time 12.5, Prothromb Time International Ratio 0.90, Activated Partial Thromboplast Time 32.5, Fibrinogen 576H, D-Dimer, Quantitative 1465.68H, Anion Gap 2L, Glomerular Filtration Rate > 60.0, Lactic Acid Level 0.8, Calcium Level 8.8, Magnesium Level 1.8, Ferritin 127, Total Bilirubin 0.7, Aspartate Amino Transf (AST/SGOT) 23, Alanine Aminotransferase (ALT/SGPT) 29, Alkaline Phosphatase 110, Lactate Dehydrogenase 164, Total Creatine Kinase 27, Creatine Kinase MB < 1.0, Creatine Kinase MB Relative Index 3.70, Troponin I < 0.02, C-Reactive Protein, Quantitative 7.55H, Total Protein 7.5, Albumin 3.1L, Albumin/Globulin Ratio 0.7L, Procalcitonin <0.05, Thyroid Stimulating Hormone (TSH) 0.318L 09/12/21 10:43: Coronavirus (COVID-19)(PCR) POSITIVEA, Influenza Type A (RT-PCR) NEGATIVE, Influenza Type B (RT-PCR) NEGATIVE, Respiratory Syncytial Virus (PCR) NEGATIVE CBC/BMP Laboratory Tests 09/12/21 09:56 Microbiology Microbiology 09/12/21 Blood Culture, Received Pending 09/12/21 Blood Culture, Received Pending Assessment/Plan Patient is 70-year-old female history of COPD dependent on 2 L of oxygen, hypertension, anxiety, GERD, hyperlipidemia presents with shortness of breath. Patient stated that a few days ago she developed generalized weakness with cough which became progressively worse. Patient was tested positive for COVID-19 2 days ago. She came today in the morning for monoclonal antibody infusion and she was found to have oxygen saturation of 70% on 2 L of oxygen. In ER patient was found to have no tachycardia, normotension, white blood count of 11.2, negative procalcitonin. Chest x-ray showed There is interstitial fibrotic change accentuated by technique. There is a left lower lobe pleural blebs status quo. No acute patchy parenchymal opacities or pleural effusions have developed. Patient denies fever, chills, nausea, vomiting diarrhea dysuria Problems (1) Acute hypoxemic respiratory failure due to COVID-19 Status: Acute Problem Text: Secondary to COVID-19 pneumonia Remdesivir, baricitinib, dexamethasone IV Labs according to COVID-19 protocol Inhalers (2) COVID-19 Status: Acute Problem Text: See above Encourage for prone position (3) Hyperlipidemia Status: Chronic Problem Text: Continue statin (4) Hypertension Status: Chronic Problem Text: Blood pressure under control Continue home meds Plan / VTE VTE Prophylaxis Ordered?: Yes PRADEEP CARRILLO DO Sep 12, 2021 13:47
[2021-09-12] MEDS: IPRATROPIUM 0.5MG/ALBUTEROL 2.5MG INH SOL UD 3ML (DUONEB) NEB SCH ×2 (14:00→20:36)
[2021-09-12] MEDS ORDERED: REMDESIVIR 200 MG in NS 250 ML IV ONE (15:00)
[2021-09-12] MEDS ORDERED: SODIUM CHLORIDE 0.9% INJ 10 ML SYR IV ONE (15:00)
[2021-09-12 17:38] VITALS: BP 150/67
[2021-09-12] MEDS: busPIRone 5 MG TAB PO SCH ×2 (17:48→20:55)
[2021-09-12] MEDS: ALPRAZolam 0.25 MG TAB PO SCH ×2 (17:49→20:53)
[2021-09-12] MEDS: rOPINIRole 1MG TAB PO SCH ×2 (17:49→20:53)
[2021-09-12] MEDS: SERTRALINE 100 MG TAB PO SCH ×2 (17:49→20:56)
[2021-09-12 20:00] VITALS: BP 127/59
[2021-09-12] MEDS: ADVAIR HFA 230/21MCG INHALER INH SCH (20:00)
[2021-09-12] MEDS: POTASSIUM CHLORIDE 10MEQ SR TABLET PO SCH (20:55)
[2021-09-12] MEDS: SIMVASTATIN 20 MG TAB PO SCH (20:56)
[2021-09-12 22:31] VITALS: O2SAT 95
[2021-09-12 22:38] LABS: APPEARANCE, URINE HAZY (CLEAR); BACTERIA, URINE AUTO 2+ (NEGATIVE); BILIRUBIN, URINE AUTO NEGATIVE (NEGATIVE); BLOOD, URINE BLOOD NEGATIVE (NEGATIVE); COLOR, URINE YELLOW (YELLOW); GLUCOSE, URINE (UA) AUTO NEGATIVE (NEGATIVE); KETONE, URINE AUTO 1+ mg/dL (NEGATIVE); LEUKOCYTE ESTERASE, URINE AUTO NEGATIVE (NEGATIVE); MUCUS, URINE SMALL (NEGATIVE); NITRITE, URINE AUTO POSITIVE (NEGATIVE); PROTEIN, URINE AUTO 2+ mg/dL (NEGATIVE); RBC, URINE AUTO 5 /HPF (0-3); SPECIFIC GRAVITY URINE AUTO 1.019 (1.002-1.035); SQUAMOUS EPITHELIAL CELL UR AU 1 /HPF (0-6); WBC, URINE AUTO 2 /HPF (0-3)
[2021-09-12 23:35] VITALS: O2SAT 85
[2021-09-12 23:40] VITALS: O2SAT 94
[2021-09-13] VITALS (9 sets, daily range): BP systolic 106–143; BP diastolic 55–65; O2SAT 80–98
[2021-09-13] MEDS: IPRATROPIUM 0.5MG/ALBUTEROL 2.5MG INH SOL UD 3ML (DUONEB) NEB SCH ×4 (01:32→20:29)
[2021-09-13 06:11] LABS: HEMATOCRIT 32.6 % (36.0-47.0); HEMOGLOBIN 10.1 g/dl (12.0-15.5); LYMPH % 21.3 % (24.0-44.0); MEAN CORPUSCULAR VOLUME 90.3 fl (80.0-96.0); MONO # 0.4 10^3/uL (0.0-0.8); MONO % 8.9 % (2.0-8.0); NEUTROPHILS # 3.3 10^3/uL (1.5-8.5); NEUTROPHILS % 69.4 % (36.0-66.0); PLATELET COUNT, AUTOMATED 149 10^3/uL (150-450); RED BLOOD COUNT 3.61 10^6/uL (4.00-5.40); WHITE BLOOD COUNT 4.7 10^3/uL (4.0-10.0)
[2021-09-13 06:28] LABS: ALBUMIN 2.6 GM/DL (3.2-5.2); ALT/SGPT 23 U/L (12-78); BILIRUBIN,DIRECT 0.2 MG/DL (0.0-0.2); BILIRUBIN,TOTAL 0.5 MG/DL (0.2-1.0); BLOOD UREA NITROGEN 12 MG/DL (7-18); CALCIUM LEVEL 8.4 MG/DL (8.8-10.2); CARBON DIOXIDE LEVEL 40 MEQ/L (21-32); CHLORIDE LEVEL 98 MEQ/L (98-107); CREATININE FOR GFR 0.27 MG/DL (0.55-1.30); GLOMERULAR FILTRATION RATE > 60.0 (>45); GLUCOSE, FASTING 92 MG/DL (70-100); MAGNESIUM LEVEL 1.8 MG/DL (1.8-2.4); POTASSIUM SERUM 3.4 MEQ/L (3.5-5.1); SODIUM LEVEL 141 MEQ/L (136-145); TOTAL PROTEIN 6.7 GM/DL (6.4-8.2)
--- NOTE | 2021-09-13 07:01 | ECGEPIP ---
[facility] - ED Test Date: 2021-09-12 Pat Name: NANCY GARZA Department: Room: - Gender: Female [employer]: MATTEO : 1950 Requested By: ROBBIE Thompson Order Number: [id number] Reading MD: Gómez Junior Measurements Intervals [place] Rate: 88 P: 73 W[place]: 162 QRS: 73 QRSD: 82 T: 113 QT: 372 QTc: 450 Interpretive Statements Normal sinus rhythm ST & T wave abnormality, consider anterolateral ischemia Electronically Signed on 09-13-2021 7:00:56 EST by Gómez Junior
[2021-09-13] MEDS: busPIRone 5 MG TAB PO SCH ×2 (08:13→20:16)
[2021-09-13] MEDS: ALPRAZolam 0.25 MG TAB PO SCH ×2 (08:13→20:15)
[2021-09-13] MEDS: dexameTHASONE 4 MG/ML 1ML VIAL (J1100 PER 1MG) IV SCH (08:13)
[2021-09-13] MEDS: SERTRALINE 100 MG TAB PO SCH ×2 (08:14→20:15)
[2021-09-13] MEDS: FERROUS SULFATE 325MG TAB PO SCH (08:14)
[2021-09-13] MEDS: rOPINIRole 1MG TAB PO SCH ×2 (08:14→20:15)
[2021-09-13] MEDS: ENOXAPARIN 40MG/0.4ML SYRINGE (J1650 PER 10MG) SC SCH (08:14)
[2021-09-13] MEDS: ADVAIR HFA 230/21MCG INHALER INH SCH ×2 (08:17→20:30)
[2021-09-13] MEDS ORDERED: POTASSIUM CHLORIDE 10MEQ SR TABLET PO ONE ×3 (09:00→16:00)
[2021-09-13] MEDS: ALBUTEROL 90 MCG/ACT 8GM HFA INHALER INH PRN (12:44)
--- NOTE | 2021-09-13 13:59 | IPNPDOC ---
Text Note Date of Service The patient was seen on 09/13/21. NOTE Subjective: No any acute events overnight. Patient stated that she feels better today. However during ambulation her oxygenation dropped to 75% on 3 L of oxygen Objective: GENERAL APPEARANCE: NAD HEENT: no scleral icterus, no JVD, EOMI CARDIOVASCULAR: S1S2 LUNGS: Diminished lung sounds bilaterally ABDOMEN: soft & not tender w palpation MUSCULOSKELETAL: no cyanosis, no swelling INTEGUMENT: no generalized pallor NEUROLOGICAL: cranial nerve function from 2-12 intact, follows commands, speech not dysarthric Assessment/Plan Patient is 70-year-old female history of COPD dependent on 2 L of oxygen, hypertension, anxiety, GERD, hyperlipidemia presents with shortness of breath. Patient stated that a few days ago she developed generalized weakness with cough which became progressively worse. Patient was tested positive for COVID-19 2 days ago. She came today in the morning for monoclonal antibody infusion and she was found to have oxygen saturation of 70% on 2 L of oxygen. In ER patient was found to have no tachycardia, normotension, white blood count of 11.2, negative procalcitonin. Chest x-ray showed There is interstitial fibrotic change accentu ated by technique. There is a left lower lobe pleural blebs status quo. No acute patchy parenchymal opacities or pleural effusions have developed. Patient denies fever, chills, nausea, vomiting diarrhea dysuria Problems (1) Acute hypoxemic respiratory failure due to COVID-19 Secondary to COVID-19 pneumonia Remdesivir, baricitinib, dexamethasone IV Labs according to COVID-19 protocol Inhalers (2) COVID-19 See above Encourage for prone position (3) Hyperlipidemia Continue statin (4) Hypertension Blood pressure under control Continue home meds Plan / VTE VTE Prophylaxis Ordered?: Yes VS,Fishbone, I+O VS, Fishbone, I+O Laboratory Tests 09/13/21 05:44 Vital Signs Date Time Temp Pulse Resp B/P (MAP) Pulse Ox O2 Delivery O2 Flow Rate FiO2 09/13/21 09:00 3.0 09/13/21 04:46 91 Nasal Cannula 09/13/21 04:00 93.3 113 19 106/55 (72) I&O- Last 24 Hours up to 6 AM 09/13/21 06:00 Intake Total 410 ml Balance 410 ml DROZHZHIN,PRADEEP DO Sep 13, 2021 13:59
[2021-09-13] MEDS ORDERED: POTASSIUM CHLORIDE 10% LIQ 20 MEQ/15 ML UDC PO ONE (14:55)
[2021-09-13] MEDS: REMDESIVIR 100 MG in NS 250 ML IV SCH (15:12)
[2021-09-13] MEDS: SODIUM CHLORIDE 0.9% INJ 10 ML SYR IV SCH (15:13)
[2021-09-13] MEDS: SIMVASTATIN 20 MG TAB PO SCH (20:16)
[2021-09-13] MEDS: POTASSIUM CHLORIDE 10MEQ SR TABLET PO SCH (20:16)
[2021-09-14] VITALS: O2SAT 95
[2021-09-14] MEDS: IPRATROPIUM 0.5MG/ALBUTEROL 2.5MG INH SOL UD 3ML (DUONEB) NEB SCH ×7 (02:10→20:00)
[2021-09-14 04:00] VITALS: BP 147/67; O2SAT 99
[2021-09-14 05:52] VITALS: O2SAT 90
[2021-09-14 06:37] LABS: HEMATOCRIT 34.6 % (36.0-47.0); HEMOGLOBIN 10.6 g/dl (12.0-15.5); LYMPH # 1.3 10^3/uL (1.5-5.0); LYMPH % 23.5 % (24.0-44.0); MEAN CORPUSCULAR HEMOGLOBIN 27.7 pg (27.0-33.0); MEAN CORPUSCULAR HGB CONC 30.6 g/dl (32.0-36.5); MEAN CORPUSCULAR VOLUME 90.6 fl (80.0-96.0); MONO # 0.6 10^3/uL (0.0-0.8); MONO % 10.5 % (2.0-8.0); NEUTROPHILS # 3.6 10^3/uL (1.5-8.5); NEUTROPHILS % 65.5 % (36.0-66.0); PLATELET COUNT, AUTOMATED 193 10^3/uL (150-450); RED BLOOD COUNT 3.82 10^6/uL (4.00-5.40); WHITE BLOOD COUNT 5.5 10^3/uL (4.0-10.0)
[2021-09-14 06:49] LABS: INR 0.92; PROTHROMBIN TIME 12.8 SECONDS (12.7-14.5)
[2021-09-14 07:06] LABS: ALBUMIN 2.8 GM/DL (3.2-5.2); ALT/SGPT 22 U/L (12-78); BILIRUBIN,DIRECT 0.2 MG/DL (0.0-0.2); BILIRUBIN,TOTAL 0.5 MG/DL (0.2-1.0); BLOOD UREA NITROGEN 20 MG/DL (7-18); CALCIUM LEVEL 9.1 MG/DL (8.8-10.2); CARBON DIOXIDE LEVEL 41 MEQ/L (21-32); CHLORIDE LEVEL 101 MEQ/L (98-107); CPK CREATINE PHOSPHOKINASE 24 U/L (26-192); CREATININE FOR GFR 0.31 MG/DL (0.55-1.30); FERRITIN 134 NG/ML (8-252); GLOMERULAR FILTRATION RATE > 60.0 (>39); GLUCOSE, FASTING 93 MG/DL (70-100); LDH LACTATE DEHYDROGENASE 161 U/L (84-246); MAGNESIUM LEVEL 2.2 MG/DL (1.8-2.4); NT-PRO BNP 447 PG/ML (<125); SODIUM LEVEL 144 MEQ/L (136-145); TOTAL PROTEIN 7.1 GM/DL (6.4-8.2); TROPONIN I < 0.02 NG/ML (< 0.10)
[2021-09-14] MEDS: ENOXAPARIN 40MG/0.4ML SYRINGE (J1650 PER 10MG) SC SCH (08:08)
[2021-09-14] MEDS: POTASSIUM CHLORIDE 10MEQ SR TABLET PO SCH ×2 (08:09→21:29)
[2021-09-14] MEDS: ALPRAZolam 0.25 MG TAB PO SCH ×2 (08:09→21:19)
[2021-09-14] MEDS: busPIRone 5 MG TAB PO SCH ×2 (08:09→21:28)
[2021-09-14] MEDS: dexameTHASONE 4 MG/ML 1ML VIAL (J1100 PER 1MG) IV SCH (08:10)
[2021-09-14] MEDS: rOPINIRole 1MG TAB PO SCH ×2 (08:10→21:18)
[2021-09-14] MEDS: SERTRALINE 100 MG TAB PO SCH ×2 (08:10→21:29)
[2021-09-14] MEDS: ADVAIR HFA 230/21MCG INHALER INH SCH ×2 (08:56→20:37)
[2021-09-14] MEDS: FUROSEMIDE 20MG/2ML VIAL (J1940) IV SCH (10:14)
[2021-09-14] MEDS: ALBUTEROL 90 MCG/ACT 8GM HFA INHALER INH PRN ×2 (12:11→14:53)
--- NOTE | 2021-09-14 12:24 | IPNPDOC ---
Text Note Date of Service The patient was seen on 09/14/21. NOTE Subjective: No any acute events overnight. Patient stated that she feels better today. No fever or chills Objective: GENERAL APPEARANCE: NAD HEENT: no scleral icterus, no JVD, EOMI CARDIOVASCULAR: S1S2 LUNGS: Diminished lung sounds bilaterally ABDOMEN: soft & not tender w palpation MUSCULOSKELETAL: no cyanosis, no swelling INTEGUMENT: no generalized pallor NEUROLOGICAL: cranial nerve function from 2-12 intact, follows commands, speech not dysarthric Assessment/Plan Patient is 70-year-old female history of COPD dependent on 2 L of oxygen, hypertension, anxiety, GERD, hyperlipidemia presents with shortness of breath. Patient stated that a few days ago she developed generalized weakness with cough which became progressively worse. Patient was tested positive for COVID-19 2 days ago. She came today in the morning for monoclonal antibody infusion and she was found to have oxygen saturation of 70% on 2 L of oxygen. In ER patient was found to have no tachycardia, normotension, white blood count of 11.2, negative procalcitonin. Chest x-ray showed There is interstitial fibrotic change accentuated by technique. There is a left lower lobe pleural blebs status quo. No acute patchy parenchymal opacities or pleural effusions have developed. Patient denies fever, chills, nausea, vomiting diarrhea dysuria Problems (1) Acute hypoxemic respiratory failure due to COVID-19 Secondary to COVID-19 pneumonia Remdesivir, baricitinib, dexamethasone IV Labs according to COVID-19 protocol Inhalers (2) COVID-19 See above Encourage for prone position (3) Hyperlipidemia Continue statin (4) Hypertension Blood pressure under control Continue home meds Plan / VTE VTE Prophylaxis Ordered?: Yes VS,Fishbone, I+O VS, Fishbone, I+O Laboratory Tests 09/14/21 06:06 Vital Signs Date Time Temp Pulse Resp B/P (MAP) Pulse Ox O2 Delivery O2 Flow Rate FiO2 09/14/21 05:52 90 Nasal Cannula 3.0 09/14/21 04:00 97.1 65 20 147/67 (93) I&O- Last 24 Hours up to 6 AM 09/14/21 06:00 Intake Total 960 ml Output Total 500 ml Balance 460 ml PRADEEP CARRILLO DO Sep 14, 2021 12:24
[2021-09-14 14:00] VITALS: BP 121/56
[2021-09-14] MEDS: REMDESIVIR 100 MG in NS 250 ML IV SCH (15:18)
[2021-09-14] MEDS: SODIUM CHLORIDE 0.9% INJ 10 ML SYR IV SCH (15:19)
[2021-09-14 20:00] VITALS: BP 135/60
[2021-09-14] MEDS: SIMVASTATIN 20 MG TAB PO SCH (21:29)
[2021-09-14 22:00] VITALS: O2SAT 94
[2021-09-15 01:59] VITALS: O2SAT 94
[2021-09-15] MEDS: IPRATROPIUM 0.5MG/ALBUTEROL 2.5MG INH SOL UD 3ML (DUONEB) NEB SCH ×2 (02:00→07:54)
[2021-09-15 04:00] VITALS: BP 133/61
[2021-09-15 06:12] LABS: HEMATOCRIT 35.4 % (36.0-47.0); HEMOGLOBIN 10.9 g/dl (12.0-15.5); MEAN CORPUSCULAR HEMOGLOBIN 27.7 pg (27.0-33.0); MEAN CORPUSCULAR HGB CONC 30.8 g/dl (32.0-36.5); MEAN CORPUSCULAR VOLUME 90.1 fl (80.0-96.0); PLATELET COUNT, AUTOMATED 230 10^3/uL (150-450); RED BLOOD COUNT 3.93 10^6/uL (4.00-5.40); WHITE BLOOD COUNT 6.3 10^3/uL (4.0-10.0)
[2021-09-15 06:35] LABS: BLOOD UREA NITROGEN 23 MG/DL (7-18); CARBON DIOXIDE LEVEL 41 MEQ/L (21-32); CHLORIDE LEVEL 99 MEQ/L (98-107); CREATININE FOR GFR 0.34 MG/DL (0.55-1.30); GLOMERULAR FILTRATION RATE > 60.0 (>39); GLUCOSE, FASTING 92 MG/DL (70-100); MAGNESIUM LEVEL 2.2 MG/DL (1.8-2.4); POTASSIUM SERUM 3.7 MEQ/L (3.5-5.1); SODIUM LEVEL 143 MEQ/L (136-145)
[2021-09-15 06:54] LABS: ATYPICAL LYMPH 1 % (0-5); LYMPHOCYTES 22 % (16-44); MONOCYTES 8 % (0-5); NEUTROPHILS 69 % (28-66); PLATELET ESTIMATE NORMAL (NORMAL)
[2021-09-15 06:58] VITALS: O2SAT 94
[2021-09-15] MEDS: ADVAIR HFA 230/21MCG INHALER INH SCH (07:54)
[2021-09-15 08:00] VITALS: O2SAT 92
[2021-09-15] MEDS ORDERED: PRED10TA2 PO (09:23)
[2021-09-15] MEDS: ALPRAZolam 0.25 MG TAB PO SCH (09:30)
[2021-09-15] MEDS: FUROSEMIDE 20MG/2ML VIAL (J1940) IV SCH (09:30)
[2021-09-15] MEDS: dexameTHASONE 4 MG/ML 1ML VIAL (J1100 PER 1MG) IV SCH (09:31)
[2021-09-15] MEDS: rOPINIRole 1MG TAB PO SCH (09:31)
[2021-09-15] MEDS: FERROUS SULFATE 325MG TAB PO SCH (09:31)
[2021-09-15] MEDS: busPIRone 5 MG TAB PO SCH (09:32)
[2021-09-15] MEDS: POTASSIUM CHLORIDE 10MEQ SR TABLET PO SCH (09:32)
[2021-09-15] MEDS: SERTRALINE 100 MG TAB PO SCH (09:33)
[2021-09-15] MEDS: ENOXAPARIN 40MG/0.4ML SYRINGE (J1650 PER 10MG) SC SCH (09:33)
[2021-09-15 12:00] VITALS: O2SAT 94
[2021-09-15 14:00] VITALS: BP 120/58
--- NOTE | 2021-09-15 17:14 | DS.PDOC ---
Discharge Summary General Date of Admission Sep 12, 2021 at 12:22 Date of Discharge 09/15/21 Discharge Summary PROCEDURES PERFORMED DURING STAY: [None]. ADMITTING DIAGNOSES: Acute hypoxemic respiratory failure due to COVID-19 COVID-19 Hyperlipidemia Hypertension DISCHARGE DIAGNOSES: Acute hypoxemic respiratory failure due to COVID-19 COVID-19 Hyperlipidemia Hypertension COMPLICATIONS/CHIEF COMPLAINT: Acute Hypozemic Respiratory Failure Due To Covid. HISTORY OF PRESENT ILLNESS:Patient is 70-year-old female history of COPD dependent on 2 L of oxygen, hypertension, anxiety, GERD, hyperlipidemia presents with shortness of breath. Patient stated that a few days ago she developed generalized weakness with cough which became progressively worse. Patient was tested positive for COVID-19 2 days ago. She came today in the morning for monoclonal antibody infusion and she was found to have oxygen saturation of 70% on 2 L of oxygen. In ER patient was found to have no tachycardia, normotension, white blood count of 11.2, negative procalc itonin. Chest x-ray showed There is interstitial fibrotic change accentuated by technique. There is a left lower lobe pleural blebs status quo. No acute patchy parenchymal opacities or pleural effusions have developed. Patient denies fever, chills, nausea, vomiting diarrhea dysuria HOSPITAL COURSE: During the hospital stay the following issues addressed (1) Acute hypoxemic respiratory failure due to COVID-19 Secondary to COVID-19 pneumonia Patient received treatment with remdesivir, baricitinib, dexamethasone IV with positive effect. Today oxygen requirements close to her baseline. Upon discharge patient will receive monoclonal antibody IV (2) COVID-19 See above (3) Hyperlipidemia Patient received statin (4) Hypertension Blood pressure under control Patient received home meds DISCHARGE MEDICATIONS: Please see below. ALLERGIES: Please see below. PHYSICAL EXAMINATION ON DISCHARGE: VITAL SIGNS: Please see below. GENERAL APPEARANCE: NAD HEENT: no scleral icterus, no JVD, EOMI CARDIOVASCULAR: S1S2 LUNGS: Diminished lung sounds bilaterally ABDOMEN: soft & not tender w palpation MUSCULOSKELETAL: no cyanosis, no swelling INTEGUMENT: no generalized pallor NEUROLOGICAL: cranial nerve function from 2-12 intact, follows commands, speech not dysarthric LABORATORY DATA: Please see below. PROGNOSIS: fair ACTIVITY: [As tolerated]. DIET: cardiac DISCHARGE PLAN: DISPOSITION: 01 Home, Self-Care. ITEMS TO FOLLOWUP ON ON OUTPATIENT: Follow-up with PCP DISCHARGE CONDITION: [Stable]. TIME SPENT ON DISCHARGE: 40 minutes. Vital Signs/I&Os Vital Signs Date Time Temp Pulse Resp B/P (MAP) Pulse Ox O2 Delivery O2 Flow Rate FiO2 09/15/21 14:00 97.7 69 18 120/58 (78) 93 Nasal Cannula 3.0 I&O- Last 24 Hours up to 6 AM 09/15/21 06:00 Intake Total 700 ml Balance 700 ml Laboratory Data Labs 24H Laboratory Tests 2 09/15/21 05:47: Neutrophils (%) (Auto) , Nucleated Red Blood Cells % (auto) 0.0, Neutrophils 69H, Lymphocytes (Manual) 22, Monocytes (Manual) 8H, Atypical Lymphocytes 1, Red Blood Cell Morphology NORMAL, Platelet Estimate NORMAL, Anion Gap 3L, Glomeru lar Filtration Rate > 60.0, Calcium Level 9.0, Magnesium Level 2.2 CBC/BMP Laboratory Tests 09/15/21 05:47 Microbiology Microbiology 09/12/21 Urine Culture - Final, Complete Escherichia Coli 09/12/21 Blood Culture - Preliminary, Resulted No Growth after 72 hours. All specime... 09/12/21 Blood Culture - Preliminary, Resulted No Growth after 72 hours. All specime... Discharge Medications Scheduled Alprazolam (Alprazolam) 0.25 Mg Tablet, 0.25 MG PO BID, (Reported) Buspirone HCl (Buspirone HCl) 15 Mg Tablet, 15 MG PO BID, (Reported) Ferrous Sulfate (Ferrous Sulfate) 325 Mg Tablet, 325 MG PO Q2D, (Reported) Losartan/Hydrochlorothiazide (Losartan-Hctz 100-12.5 mg Tab) 1 Each Tablet, 1 TAB PO DAILY, (Reported) Omeprazole (Omeprazole) 40 Mg Capsule.dr, 40 MG PO DAILY, (Reported) Potassium Chloride (Potassium Chloride) 10 Meq Capsule.er, 10 MEQ PO QPM, (Reported) Prednisone (Prednisone) 10 Mg Tablet, 10 MG PO TAPER Take 4 tabs daily x 3 days, then 3 tabs daily x 3 days, then 2 tabs daily x 3 days, then 1 tab daily x 3 days and stop Ropinirole HCl (Ropinirole HCl) 1 Mg Tablet, 1 MG PO QAM, (Reported) Ropinirole HCl (Ropinirole HCl) 1 Mg Tablet, 2 MG PO QHS, (Reported) Salmeterol/Fluticasone (Advair 500-50 Diskus) 1 Each Blst.w.dev, 1 PUFF INH BID, (Reported) Sertraline Hcl (Zoloft) 100 Mg Tablet, 100 MG PO BID, (Reported) Simvastatin (Simvastatin) 20 Mg Tab, 20 MG PO QHS, (Reported) Umeclidinium [place] (Incruse Ellipta) 62.5 Mcg Blst.w.dev, 1 PUFF INH DAILY, (Reported) TAKES IN THE AFTERNOON Scheduled PRN Albuterol Sulfate (Albuterol Sulfate) 2.5 Mg/0.5 Ml Neb, 2.5 MG INH Q6H PRN for SHORTNESS OF BREATH, (Reported) Albuterol Sulfate (Albuterol Sulfate Hfa) 8.5 Gm Hfa.aer.ad, 2 PUFFS INH QID PRN for SHORTNESS OF BREATH, (Reported) Fluticasone Propionate (Fluticasone Propionate) 16 Gm [place].susp, 1 SPRAY NARES BID PRN for CONGESTION, (Reported) Allergies Coded Allergies: No Known Allergies (Unverified , 02/20/21) PRADEEP CARRILLO DO Sep 15, 2021 17:14
== END 2021-09-15 13:40 | disposition home or self-care (01) | DRG 177 ==
LOC: M ED 08:40 → M ED INP 12:22 → ENRESERV 16:32 → M 4MAIN 17:51
PROVIDERS: ADMIT Internal Medicine; ATTEND Internal Medicine
PROC: 3E0333Z Introduction of Anti-inflammatory into Peripheral Vein, Percutaneous Approach (ICD-10-PCS; principal; 2021-09-12)
PROC: XW033E5 Introduction of Remdesivir Anti-infective into Peripheral Vein, Percutaneous Approach, New Technology Group 5 (ICD-10-PCS; 2021-09-12)
DX: U07.1 COVID-19 (principal); J96.01 Acute respiratory failure with hypoxia; J44.9 Chronic obstructive pulmonary disease, unspecified; Z99.81 Dependence on supplemental oxygen; I10 Essential (primary) hypertension; F41.9 Anxiety disorder, unspecified; K21.9 Gastro-esophageal reflux disease without esophagitis; E78.5 Hyperlipidemia, unspecified; Z79.899 Other long term (current) drug therapy; Z90.79 Acquired absence of other genital organ(s); Z87.891 Personal history of nicotine dependence

== ENCOUNTER 2021-09-15 13:44 | Outpatient (CLI) | payer MEDICARE ==
[~2021-09-15] VITALS: Ht 154.9 cm; Wt 64.8 kg
[~2021-09-15 13:44] MED LIST changes: +ALBUTEROL 90 MCG/ACT 8GM HFA INHALER INH PRN; +ALBUTEROL SULFATE 2.5 MG/0.5 ML INH NEB SOLN INH PRN; +BAMLANIVIMAB 700 MG, ETESEVIMAB 1,400 MG in NS 250 ML IV ONE; +BUSP15TA47 PO; +CASIRIVIMAB (REGN10933) 600 MG, IMDEVIMAB (REGN10987) 600 MG in NS 250 ML IV ONE; +EPINEPHrine INJ 1 MG/ML 1ML AMP IM PRN; +FERR1TAB8 PO; +NS 1,000 ML IV SCH; +diphenhydrAMINE 50MG/ML VIAL (J1200) IV PRN; +methylPREDNISolone 125MG 2ML VIAL IV PRN
[2021-09-15 15:09] VITALS: BP 118/58
[2021-09-15 15:45] VITALS: BP 123/58
[2021-09-15 16:30] VITALS: BP 129/60
[2021-09-15 17:28] VITALS: BP 143/60
== END 2021-09-15 17:30 | disposition home or self-care (01) ==
LOC: M OPCLI4PR 13:44 → M OPCLI4 13:44 → M 4MAIN 13:47 → M OPCLI4 17:30
PROVIDERS: ATTEND Internal Medicine
DX: U07.1 COVID-19 (principal)

== ENCOUNTER → 2021-11-04 | Outpatient (REF) | payer MEDICARE, MEDICAID ==
[~2021-11-04] MED LIST changes: -ALBUTEROL 90 MCG/ACT 8GM HFA INHALER INH PRN; -ALBUTEROL SULFATE 2.5 MG/0.5 ML INH NEB SOLN INH PRN; -BAMLANIVIMAB 700 MG, ETESEVIMAB 1,400 MG in NS 250 ML IV ONE; -CASIRIVIMAB (REGN10933) 600 MG, IMDEVIMAB (REGN10987) 600 MG in NS 250 ML IV ONE; -EPINEPHrine INJ 1 MG/ML 1ML AMP IM PRN; -NS 1,000 ML IV SCH; -diphenhydrAMINE 50MG/ML VIAL (J1200) IV PRN; -methylPREDNISolone 125MG 2ML VIAL IV PRN
== END ==
LOC: M LAB REF 16:20
PROVIDERS: ATTEND Internal Medicine
DX: G25.81 Restless legs syndrome (principal)

== ENCOUNTER 2022-02-08 19:23 | Inpatient (IN) | payer MEDICAID, MEDICARE ==
[~2022-02-08] VITALS: Ht 154.9 cm; Wt 70.0 kg
[~2022-02-08 19:23] MED LIST changes: -CEFD1CAP8 PO; +CEFD300C41 PO; +LOSA50TA28 PO; -LOSA50TA88 PO; -OMEP-221 PO; +OMEP40CA5 PO; +REMDESIVIR 200 MG in NS 250 ML IV ONE
[2022-02-08] MEDS ORDERED: COMBIVENT RESPIMAT 100-20MCG INHALER 4GM INH ONE ×2 (20:25→23:15)
[2022-02-08 20:49] LABS: BASO % 0.1 % (0.0-1.0); EOS # 0.2 10^3/uL (0.0-0.5); EOS % 2.3 % (0.0-3.0); LYMPH # 2.2 10^3/uL (1.5-5.0); LYMPH % 25.4 % (24.0-44.0); MEAN CORPUSCULAR HEMOGLOBIN 29.6 pg (27.0-33.0); MEAN CORPUSCULAR HGB CONC 33.3 g/dl (32.0-36.5); MEAN CORPUSCULAR VOLUME 88.7 fl (80.0-96.0); MONO # 0.7 10^3/uL (0.0-0.8); MONO % 8.3 % (2.0-8.0); NEUTROPHILS # 5.6 10^3/uL (1.5-8.5); NEUTROPHILS % 63.6 % (36.0-66.0); PLATELET COUNT, AUTOMATED 218 10^3/uL (150-450); RED BLOOD COUNT 3.72 10^6/uL (4.00-5.40); WHITE BLOOD COUNT 8.8 10^3/uL (4.0-10.0)
[2022-02-08] MEDS ORDERED: methylPREDNISolone 125MG 2ML VIAL IV ONE (21:00)
[2022-02-08 21:02] LABS: ABG BASE EXCESS 6.9 (-2.0-2.0); ABG HCO3 33.7 MEQ/L (22.0-26.0); ABG PARTIAL PRESSURE CO2 59.6 mmHg (35.0-45.0); ABG PARTIAL PRESSURE O2 155.8 mmHg (75.0-100.0); ABG STANDARD HCO3 30.7 MEQ/L (22.0-26.0); ABG TOTAL CO2 35.5 MEQ/L (23.0-31.0)
[2022-02-08 21:19] LABS: ALT/SGPT 17 U/L (12-78); BILIRUBIN,DIRECT < 0.1 MG/DL (0.0-0.2); BILIRUBIN,TOTAL 0.4 MG/DL (0.2-1.0); BLOOD UREA NITROGEN 12 MG/DL (7-18); CALCIUM LEVEL 8.7 MG/DL (8.8-10.2); CARBON DIOXIDE LEVEL 36 MEQ/L (21-32); CHLORIDE LEVEL 106 MEQ/L (98-107); CK-MB VALUE MASS < 1.0 NG/ML (<3.6); CPK CREATINE PHOSPHOKINASE 41 U/L (26-192); CREATININE FOR GFR 0.45 MG/DL (0.55-1.30); GLOMERULAR FILTRATION RATE > 60.0 (>39); GLUCOSE, FASTING 101 MG/DL (70-100); MB/CK RELATIVE INDEX 2.44 (< OR =4); NT-PRO BNP 278 PG/ML (<125); POTASSIUM SERUM 4.2 MEQ/L (3.5-5.1); SODIUM LEVEL 145 MEQ/L (136-145); TOTAL PROTEIN 6.7 GM/DL (6.4-8.2)
[2022-02-08] MEDS ORDERED: HOME MED LIST COMPLETE! XX SCH (21:50)
[2022-02-08 22:09] LABS: CK-MB VALUE MASS < 1.0 NG/ML (<3.6); CPK CREATINE PHOSPHOKINASE 27 U/L (26-192)
[2022-02-08] MEDS ORDERED: FLUTICASONE PROP 0.05% NASAL SPRAY 16 GM (FLONASE) NARES PRN (23:20)
[2022-02-08] MEDS ORDERED: ACETAMINOPHEN TAB 650MG DOSE (2X325MG) PO PRN (23:20)
[2022-02-08] MEDS ORDERED: ALBUTEROL SULFATE 2.5 MG/0.5 ML INH NEB SOLN NEB PRN (23:36)
[2022-02-09] VITALS (15 sets, daily range): BP systolic 131–171; BP diastolic 62–86; O2SAT 92–97
[2022-02-09] MEDS: guaiFENesin ER 600 MG TAB PO SCH ×3 (01:07→20:41)
[2022-02-09] MEDS: IPRATROPIUM 0.5MG/ALBUTEROL 2.5MG INH SOL UD 3ML (DUONEB) NEB SCH ×4 (02:18→19:36)
[2022-02-09] MEDS ORDERED: REMDESIVIR 200 MG in NS 250 ML IV ONE (03:00)
[2022-02-09] MEDS ORDERED: SODIUM CHLORIDE 0.9% INJ 10 ML SYR IV ONE (05:00)
[2022-02-09 05:07] LABS: BASO % 0.2 % (0.0-1.0); EOS % 0.2 % (0.0-3.0); HEMATOCRIT 33.2 % (36.0-47.0); HEMOGLOBIN 11.2 g/dl (12.0-15.5); LYMPH # 0.7 10^3/uL (1.5-5.0); LYMPH % 10.2 % (24.0-44.0); MEAN CORPUSCULAR HEMOGLOBIN 29.9 pg (27.0-33.0); MEAN CORPUSCULAR HGB CONC 33.7 g/dl (32.0-36.5); MEAN CORPUSCULAR VOLUME 88.5 fl (80.0-96.0); MONO # 0.1 10^3/uL (0.0-0.8); MONO % 1.4 % (2.0-8.0); NEUTROPHILS # 5.8 10^3/uL (1.5-8.5); NEUTROPHILS % 87.1 % (36.0-66.0); PLATELET COUNT, AUTOMATED 222 10^3/uL (150-450); RED BLOOD COUNT 3.75 10^6/uL (4.00-5.40); WHITE BLOOD COUNT 6.7 10^3/uL (4.0-10.0)
[2022-02-09 05:32] LABS: ALBUMIN 2.9 GM/DL (3.2-5.2); ALT/SGPT 19 U/L (12-78); BILIRUBIN,DIRECT < 0.1 MG/DL (0.0-0.2); BILIRUBIN,TOTAL 0.6 MG/DL (0.2-1.0); BLOOD UREA NITROGEN 13 MG/DL (7-18); CALCIUM LEVEL 8.7 MG/DL (8.8-10.2); CARBON DIOXIDE LEVEL 34 MEQ/L (21-32); CHLORIDE LEVEL 104 MEQ/L (98-107); GLOMERULAR FILTRATION RATE > 60.0 (>39); GLUCOSE, FASTING 140 MG/DL (70-100); SODIUM LEVEL 141 MEQ/L (136-145); TOTAL PROTEIN 7.1 GM/DL (6.4-8.2)
[2022-02-09 05:33] LABS: MAGNESIUM LEVEL 1.8 MG/DL (1.8-2.4)
[2022-02-09] MEDS: ADVAIR HFA 230/21MCG INHALER INH SCH ×2 (07:42→19:39)
[2022-02-09] MEDS: POTASSIUM CHLORIDE 10MEQ SR TABLET PO SCH ×2 (08:10→20:41)
[2022-02-09] MEDS: SERTRALINE 100 MG TAB PO SCH ×2 (08:10→20:41)
[2022-02-09] MEDS: methylPREDNISolone 125MG 2ML VIAL IV SCH ×2 (08:10→20:42)
[2022-02-09] MEDS: OMEPRAZOLE 20MG CAP PO SCH (08:10)
[2022-02-09] MEDS: ALPRAZolam 0.25 MG TAB PO SCH ×2 (08:11→20:41)
[2022-02-09] MEDS: rOPINIRole 1MG TAB PO SCH (08:11)
[2022-02-09] MEDS: busPIRone 5 MG TAB PO SCH ×2 (08:11→20:41)
[2022-02-09] MEDS: ENOXAPARIN 40MG/0.4ML SYRINGE (J1650 PER 10MG) SC SCH (08:12)
[2022-02-09] MEDS: BENZONATATE 100MG CAPSULE PO PRN ×2 (09:33→17:25)
[2022-02-09] MEDS ORDERED: SIMVASTATIN 20 MG TAB PO SCH (21:00)
[2022-02-09] MEDS ORDERED: rOPINIRole 2MG TAB PO SCH (21:00)
[2022-02-10] MEDS: IPRATROPIUM 0.5MG/ALBUTEROL 2.5MG INH SOL UD 3ML (DUONEB) NEB SCH ×2 (01:08→08:00)
[2022-02-10] MEDS ORDERED: REMDESIVIR 100 MG in NS 250 ML IV SCH (03:00)
[2022-02-10] MEDS ORDERED: SODIUM CHLORIDE 0.9% INJ 10 ML SYR IV SCH (04:00)
[2022-02-10 05:12] VITALS: BP 131/60
[2022-02-10] MEDS ORDERED: PRED10TA2 PO (08:13)
[2022-02-10] MEDS ORDERED: DOXY-350 PO (08:13)
[2022-02-10 08:25] VITALS: O2SAT 91
[2022-02-10] MEDS: ADVAIR HFA 230/21MCG INHALER INH SCH (08:25)
[2022-02-10] MEDS: ENOXAPARIN 40MG/0.4ML SYRINGE (J1650 PER 10MG) SC SCH (08:39)
[2022-02-10] MEDS: OMEPRAZOLE 20MG CAP PO SCH (08:39)
[2022-02-10] MEDS: rOPINIRole 1MG TAB PO SCH (08:40)
[2022-02-10] MEDS: ALPRAZolam 0.25 MG TAB PO SCH (08:40)
[2022-02-10] MEDS: busPIRone 5 MG TAB PO SCH (08:41)
[2022-02-10] MEDS: guaiFENesin ER 600 MG TAB PO SCH (08:41)
[2022-02-10] MEDS: POTASSIUM CHLORIDE 10MEQ SR TABLET PO SCH (08:41)
[2022-02-10] MEDS: SERTRALINE 100 MG TAB PO SCH (08:41)
[2022-02-10] MEDS: methylPREDNISolone 125MG 2ML VIAL IV SCH (08:43)
[2022-02-10 08:53] LABS: BASO % 0.1 % (0.0-1.0); HEMOGLOBIN 11.4 g/dl (12.0-15.5); LYMPH # 1.6 10^3/uL (1.5-5.0); LYMPH % 12.5 % (24.0-44.0); MEAN CORPUSCULAR HEMOGLOBIN 29.5 pg (27.0-33.0); MEAN CORPUSCULAR HGB CONC 33.5 g/dl (32.0-36.5); MEAN CORPUSCULAR VOLUME 87.9 fl (80.0-96.0); MONO # 0.7 10^3/uL (0.0-0.8); MONO % 5.6 % (2.0-8.0); NEUTROPHILS # 10.1 10^3/uL (1.5-8.5); NEUTROPHILS % 80.9 % (36.0-66.0); PLATELET COUNT, AUTOMATED 276 10^3/uL (150-450); RED BLOOD COUNT 3.87 10^6/uL (4.00-5.40); WHITE BLOOD COUNT 12.5 10^3/uL (4.0-10.0)
[2022-02-10 08:56] VITALS: O2SAT 95
[2022-02-10 09:19] LABS: INR 0.98; PROTHROMBIN TIME 13.4 SECONDS (12.7-14.5)
[2022-02-10 09:20] LABS: ALBUMIN 3.1 GM/DL (3.2-5.2); ALT/SGPT 16 U/L (12-78); BILIRUBIN,DIRECT 0.1 MG/DL (0.0-0.2); BILIRUBIN,TOTAL 0.3 MG/DL (0.2-1.0); BLOOD UREA NITROGEN 16 MG/DL (7-18); CALCIUM LEVEL 9.2 MG/DL (8.8-10.2); CARBON DIOXIDE LEVEL 37 MEQ/L (21-32); CHLORIDE LEVEL 104 MEQ/L (98-107); CREATININE FOR GFR 0.54 MG/DL (0.55-1.30); FERRITIN 102 NG/ML (8-252); GLOMERULAR FILTRATION RATE > 60.0 (>39); GLUCOSE, FASTING 115 MG/DL (70-100); LDH LACTATE DEHYDROGENASE 139 U/L (84-246); NT-PRO BNP 1194 PG/ML (<125); PARTIAL THROMBOPLASTIN TIME 27.5 SECONDS (25.9-37.0); POTASSIUM SERUM 3.6 MEQ/L (3.5-5.1); SODIUM LEVEL 145 MEQ/L (136-145); TOTAL PROTEIN 7.4 GM/DL (6.4-8.2)
[2022-02-10] MEDS ORDERED: BENZ-18 PO (09:57)
[2022-02-10] MEDS ORDERED: FUROSEMIDE 40MG/4ML VIAL (J1940) IV ONE (11:10)
== END 2022-02-10 11:07 | disposition home or self-care (01) | DRG 178 ==
LOC: M ED 19:23 → M ED INP 23:19 → ENRESERV 23:57 → M ICU 02-09 02:00 → M 4MAIN 02-09 16:36 → M PCU 02-09 16:38 → M 4MAIN 02-09 16:39
PROVIDERS: ADMIT Family Medicine; ATTEND General Practice
PROC: XW033E5 Introduction of Remdesivir Anti-infective into Peripheral Vein, Percutaneous Approach, New Technology Group 5 (ICD-10-PCS; principal; 2022-02-09)
DX: U07.1 COVID-19 (principal); J44.1 Chronic obstructive pulmonary disease with (acute) exacerbation; J96.11 Chronic respiratory failure with hypoxia; I25.10 Atherosclerotic heart disease of native coronary artery without angina pectoris; Z95.5 Presence of coronary angioplasty implant and graft; I10 Essential (primary) hypertension; E78.5 Hyperlipidemia, unspecified; Z99.81 Dependence on supplemental oxygen; N80.9 Endometriosis, unspecified; F32.A Depression, unspecified; F41.9 Anxiety disorder, unspecified; Z90.79 Acquired absence of other genital organ(s); Z87.891 Personal history of nicotine dependence; K21.9 Gastro-esophageal reflux disease without esophagitis; G25.81 Restless legs syndrome; Z79.899 Other long term (current) drug therapy

== ENCOUNTER 2022-04-03 00:40 | Inpatient (IN) | payer MEDICARE ==
[~2022-04-03] VITALS: Ht 154.9 cm; Wt 69.5 kg
[~2022-04-03 00:40] MED LIST changes: +BENZ-18 PO; +DOXY-350 PO; +FLUTISP; -FLUTISP NARES; -REMDESIVIR 200 MG in NS 250 ML IV ONE
[2022-04-03 01:09] LABS: ABG BASE EXCESS 7.6 (-2.0-2.0); ABG HCO3 39.6 MEQ/L (22.0-26.0); ABG PARTIAL PRESSURE O2 126.5 mmHg (75.0-100.0); ABG STANDARD HCO3 31.5 MEQ/L (22.0-26.0); ABG TOTAL CO2 42.8 MEQ/L (23.0-31.0)
[2022-04-03 01:15] LABS: BASO % 0.2 % (0.0-1.0); EOS % 0.1 % (0.0-3.0); HEMATOCRIT 41.2 % (36.0-47.0); HEMOGLOBIN 12.8 g/dl (12.0-15.5); LYMPH # 3.6 10^3/uL (1.5-5.0); LYMPH % 17.1 % (24.0-44.0); MEAN CORPUSCULAR HEMOGLOBIN 29.3 pg (27.0-33.0); MEAN CORPUSCULAR HGB CONC 31.1 g/dl (32.0-36.5); MEAN CORPUSCULAR VOLUME 94.3 fl (80.0-96.0); NEUTROPHILS # 15.5 10^3/uL (1.5-8.5); NEUTROPHILS % 72.8 % (36.0-66.0); PLATELET COUNT, AUTOMATED 232 10^3/uL (150-450); RED BLOOD COUNT 4.37 10^6/uL (4.00-5.40); WHITE BLOOD COUNT 21.3 10^3/uL (4.0-10.0)
[2022-04-03] MEDS ORDERED: ALBUTEROL SULFATE 2.5 MG/0.5 ML INH NEB SOLN INH ONE (01:15)
[2022-04-03] MEDS ORDERED: PIPERACILLIN/TAZOBACTAM SOD 3.375 GM in D5W MINI-BAG PLUS 50 ML IV ONE (01:20)
[2022-04-03 01:34] LABS: ABG pH (ARTERIAL) 7.204 UNITS (7.350-7.450)
[2022-04-03 01:35] LABS: ABG PARTIAL PRESSURE CO2 102.7 mmHg (35.0-45.0)
[2022-04-03 01:40] LABS: CK-MB VALUE MASS 1.3 NG/ML (<3.6); MB/CK RELATIVE INDEX 2.5 (< OR =4)
[2022-04-03] MEDS ORDERED: ACETAMINOPHEN 650 MG SUPP PR ONE (01:40)
[2022-04-03 01:43] LABS: BLOOD UREA NITROGEN 18 MG/DL (7-18); CARBON DIOXIDE LEVEL 42 MEQ/L (21-32); CHLORIDE LEVEL 95 MEQ/L (98-107); CREATININE FOR GFR 0.64 MG/DL (0.55-1.30); GLOMERULAR FILTRATION RATE > 60.0 (>39); GLUCOSE, FASTING 266 MG/DL (70-100); POTASSIUM SERUM 3.6 MEQ/L (3.5-5.1); SODIUM LEVEL 140 MEQ/L (136-145)
[2022-04-03 01:44] LABS: ALBUMIN 3.3 GM/DL (3.2-5.2); ALT/SGPT 28 U/L (12-78); BILIRUBIN,DIRECT 0.3 MG/DL (0.0-0.2); BILIRUBIN,TOTAL 0.8 MG/DL (0.2-1.0); CALCIUM LEVEL 9.1 MG/DL (8.8-10.2); NT-PRO BNP 1074 PG/ML (<125); TOTAL PROTEIN 7.3 GM/DL (6.4-8.2)
[2022-04-03 01:59] LABS: MONO # 1.9 10^3/uL (0.0-0.8)
[2022-04-03 02:00] LABS: MONO % 8.9 % (2.0-8.0)
[2022-04-03 02:13] LABS: ABG BASE EXCESS 8.1 (-2.0-2.0); ABG HCO3 37.8 MEQ/L (22.0-26.0); ABG O2 SATURATION 99.3 % (95.0-99.0); ABG PARTIAL PRESSURE O2 230.4 mmHg (75.0-100.0); ABG STANDARD HCO3 31.9 MEQ/L (22.0-26.0); ABG TOTAL CO2 40.3 MEQ/L (23.0-31.0); ABG pH (ARTERIAL) 7.283 UNITS (7.350-7.450)
[2022-04-03 02:19] LABS: ABG PARTIAL PRESSURE CO2 81.7 mmHg (35.0-45.0)
[2022-04-03] MEDS ORDERED: ALBUTEROL SULFATE 2.5 MG/0.5 ML INH NEB SOLN NEB PRN ×2 (03:45→04:05)
[2022-04-03] MEDS ORDERED: ALBUTEROL 90 MCG/ACT 8GM HFA INHALER INH PRN (03:45)
[2022-04-03] MEDS ORDERED: ONDA-195 PO (04:23)
[2022-04-03] MEDS ORDERED: PRED10TA2 PO (04:23)
[2022-04-03] MEDS ORDERED: CLON0.5T2 PO (04:23)
[2022-04-03] MEDS ORDERED: HOME MED LIST COMPLETE! XX SCH (04:25)
[2022-04-03] MEDS ORDERED: OMEPRAZOLE 20MG CAP PO ONE (05:00)
[2022-04-03] MEDS ORDERED: methylPREDNISolone 125MG 2ML VIAL IV SCH (05:00)
[2022-04-03 07:43] LABS: BASO % 0.2 % (0.0-1.0); HEMATOCRIT 37.6 % (36.0-47.0); HEMOGLOBIN 11.9 g/dl (12.0-15.5); LYMPH # 0.6 10^3/uL (1.5-5.0); MEAN CORPUSCULAR HEMOGLOBIN 29.6 pg (27.0-33.0); MEAN CORPUSCULAR HGB CONC 31.6 g/dl (32.0-36.5); MEAN CORPUSCULAR VOLUME 93.5 fl (80.0-96.0); MONO # 0.2 10^3/uL (0.0-0.8); MONO % 1.6 % (2.0-8.0); NEUTROPHILS # 13.5 10^3/uL (1.5-8.5); NEUTROPHILS % 93.4 % (36.0-66.0); PLATELET COUNT, AUTOMATED 164 10^3/uL (150-450); RED BLOOD COUNT 4.02 10^6/uL (4.00-5.40); WHITE BLOOD COUNT 14.4 10^3/uL (4.0-10.0)
[2022-04-03] MEDS ORDERED: ALBUTEROL SULFATE 2.5 MG/0.5 ML INH NEB SOLN NEB SCH (08:00)
[2022-04-03] MEDS ORDERED: ADVAIR HFA 230/21MCG INHALER INH SCH (08:00)
[2022-04-03] MEDS: IPRATROPIUM 0.5MG/ALBUTEROL 2.5MG INH SOL UD 3ML (DUONEB) NEB SCH ×2 (08:00→14:08)
[2022-04-03] MEDS ORDERED: TIOTROPIUM INHALER/CAPSULE (SPIRIVA) INH SCH (08:00)
[2022-04-03 08:11] LABS: ALT/SGPT 26 U/L (12-78); BILIRUBIN,TOTAL 0.8 MG/DL (0.2-1.0); BLOOD UREA NITROGEN 23 MG/DL (7-18); CALCIUM LEVEL 9.7 MG/DL (8.8-10.2); CARBON DIOXIDE LEVEL 40 MEQ/L (21-32); CHLORIDE LEVEL 99 MEQ/L (98-107); CREATININE FOR GFR 0.51 MG/DL (0.55-1.30); GLOMERULAR FILTRATION RATE > 60.0 (>39); GLUCOSE, FASTING 135 MG/DL (70-100); POTASSIUM SERUM 4.1 MEQ/L (3.5-5.1); SODIUM LEVEL 143 MEQ/L (136-145); TOTAL PROTEIN 6.9 GM/DL (6.4-8.2)
[2022-04-03] MEDS: PIPERACILLIN/TAZOBACTAM SOD 4.5 GM in D5W MINI-BAG PLUS 50 ML IV SCH ×2 (08:26→16:30)
[2022-04-03] MEDS ORDERED: POTASSIUM CHLORIDE 10MEQ SR TABLET PO SCH (09:00)
[2022-04-03] MEDS ORDERED: rOPINIRole 1MG TAB PO SCH (09:00)
[2022-04-03] MEDS ORDERED: busPIRone 5 MG TAB PO SCH (09:00)
[2022-04-03] MEDS ORDERED: SERTRALINE 100 MG TAB PO SCH (09:00)
[2022-04-03] MEDS ORDERED: ENOXAPARIN 40MG/0.4ML SYRINGE (J1650 PER 10MG) SC SCH (09:00)
[2022-04-03] MEDS ORDERED: clonazePAM 0.5 MG TAB PO SCH (09:00)
[2022-04-03 09:29] LABS: ABG BASE EXCESS 13.5 (-2.0-2.0); ABG HCO3 42.9 MEQ/L (22.0-26.0); ABG O2 SATURATION 98.9 % (95.0-99.0); ABG PARTIAL PRESSURE O2 153.4 mmHg (75.0-100.0); ABG STANDARD HCO3 37.3 MEQ/L (22.0-26.0); ABG TOTAL CO2 45.4 MEQ/L (23.0-31.0); ABG pH (ARTERIAL) 7.333 UNITS (7.350-7.450)
[2022-04-03 09:30] LABS: ABG PARTIAL PRESSURE CO2 82.6 mmHg (35.0-45.0)
[2022-04-03] MEDS ORDERED: ONDANSETRON 4MG/2ML VIAL IV PRN (15:15)
[2022-04-03] MEDS: MORPHINE 2 MG/ML 1ML VIAL IV PRN ×2 (15:56→21:41)
[2022-04-03] MEDS: LORazepam 2 MG/ML VIAL IV PRN (16:26)
[2022-04-03] MEDS ORDERED: SIMVASTATIN 20 MG TAB PO SCH (21:00)
[2022-04-03] MEDS ORDERED: rOPINIRole 2MG TAB PO SCH (21:00)
[2022-04-04] MEDS ORDERED: ACETAMINOPHEN TAB 650MG DOSE (2X325MG) PO PRN (02:50)
[2022-04-04] MEDS: MORPHINE 2 MG/ML 1ML VIAL IV PRN ×6 (04:25→21:45)
[2022-04-04] MEDS: LORazepam 2 MG/ML VIAL IV PRN (09:35)
[2022-04-05] MEDS: MORPHINE 2 MG/ML 1ML VIAL IV PRN ×5 (01:03→22:00)
[2022-04-05] MEDS: LORazepam 2 MG/ML VIAL IV PRN ×2 (11:32→18:34)
[2022-04-06] MEDS: MORPHINE 2 MG/ML 1ML VIAL IV PRN ×6 (04:43→20:09)
[2022-04-06] MEDS: LORazepam 2 MG/ML VIAL IV PRN (16:34)
[2022-04-07] MEDS: MORPHINE 2 MG/ML 1ML VIAL IV PRN ×5 (02:47→17:25)
[2022-04-07] MEDS: LORazepam 2 MG/ML VIAL IV PRN ×3 (08:42→18:06)
[2022-04-07] MEDS: MORPHINE 10MG/0.5ML ORAL CONCENTRATE SOLUTION U/D SL PRN (18:05)
[2022-04-08] MEDS: MORPHINE 10MG/0.5ML ORAL CONCENTRATE SOLUTION U/D SL PRN ×4 (01:51→18:18)
[2022-04-08] MEDS: LORazepam 2 MG/ML VIAL IV PRN ×2 (01:58→23:02)
[2022-04-08] MEDS: MORPHINE 2 MG/ML 1ML VIAL IV PRN (21:20)
[2022-04-09] MEDS: MORPHINE 10MG/0.5ML ORAL CONCENTRATE SOLUTION U/D SL PRN ×5 (08:11→18:25)
[2022-04-09] MEDS: LORazepam 2 MG/ML VIAL IV PRN ×4 (08:37→14:52)
[2022-04-09] MEDS: MORPHINE 2 MG/ML 1ML VIAL IV PRN (14:52)
[2022-04-09] MEDS: LORazepam 2 MG TAB PO PRN ×2 (15:02→18:25)
[2022-04-10] MEDS: LORazepam 2 MG TAB PO PRN ×3 (01:33→18:07)
[2022-04-10] MEDS: MORPHINE 10MG/0.5ML ORAL CONCENTRATE SOLUTION U/D SL PRN ×7 (01:35→23:37)
[2022-04-10 02:16] VITALS: BP 158/84
[2022-04-10] MEDS: MORPHINE 2 MG/ML 1ML VIAL IV PRN ×2 (02:16→06:04)
[2022-04-10] MEDS: LORazepam 2 MG/ML VIAL IV PRN ×4 (08:30→23:37)
[2022-04-10] MEDS ORDERED: LORazepam 2 MG/ML VIAL As Ordered ONE (23:30)
[2022-04-10] MEDS: ATROPINE SULFATE 1% OP SOLN 2 ML BTL SL PRN (23:36)
[2022-04-11] MEDS: ATROPINE SULFATE 1% OP SOLN 2 ML BTL SL PRN (06:09)
[2022-04-11] MEDS: MORPHINE 10MG/0.5ML ORAL CONCENTRATE SOLUTION U/D SL PRN ×3 (06:11→11:53)
[2022-04-11] MEDS: LORazepam 2 MG/ML VIAL IV PRN (07:59)
== END 2022-04-11 17:40 | disposition expired | DRG 871 ==
LOC: EDBD 00:40 → M ED 00:40 → M ED INP 04:27 → ENRESERV 12:28 → M ICU 13:20 → M MSPAV 16:11
PROVIDERS: ADMIT Family Medicine; ATTEND General Practice
PROC: 5A09457 Assistance with Respiratory Ventilation, 24-96 Consecutive Hours, Continuous Positive Airway Pressure (ICD-10-PCS; principal; 2022-04-03)
DX: A41.9 Sepsis, unspecified organism (principal); J96.22 Acute and chronic respiratory failure with hypercapnia; J12.2 Parainfluenza virus pneumonia; G93.41 Metabolic encephalopathy; J96.21 Acute and chronic respiratory failure with hypoxia; J44.1 Chronic obstructive pulmonary disease with (acute) exacerbation; E87.2 Acidosis; J44.0 Chronic obstructive pulmonary disease with (acute) lower respiratory infection; I50.22 Chronic systolic (congestive) heart failure; Z99.81 Dependence on supplemental oxygen; I25.10 Atherosclerotic heart disease of native coronary artery without angina pectoris; I11.0 Hypertensive heart disease with heart failure; E78.5 Hyperlipidemia, unspecified; Z95.5 Presence of coronary angioplasty implant and graft; N80.9 Endometriosis, unspecified; F41.9 Anxiety disorder, unspecified; Z90.79 Acquired absence of other genital organ(s); F32.A Depression, unspecified; G25.81 Restless legs syndrome; K21.9 Gastro-esophageal reflux disease without esophagitis; E87.6 Hypokalemia; Z66 Do not resuscitate; Z20.822 Contact with and (suspected) exposure to COVID-19; Z86.16 Personal history of COVID-19; Z79.899 Other long term (current) drug therapy; Z51.5 Encounter for palliative care; B34.8 Other viral infections of unspecified site; J20.4 Acute bronchitis due to parainfluenza virus; I27.20 Pulmonary hypertension, unspecified